=== PATIENT | male | born 1945 | race Caucasian/White ===

== ENCOUNTER 2020-03-19 14:02 | Inpatient (IN) ==
[2020-03-19] MEDS ORDERED: 0.9 % SODIUM CHLORIDE 500 ML IV ONE (14:46)
--- NOTE | 2020-03-19 14:59 | Emergency Department Note ---
HPI General Chief complaint: Weakness Stated complaint: weakness, confusion Time Seen by Provider: 03/19/20 14:14 Source: patient and EMS Mode of arrival: ambulatory Limitations: language barrier (Patient is speech is very garbled and somewhat hard to understand.) and altered mental status History of Present Illness HPI Narrative: Narrative: 74-year-old male patient brought into the emergency department via ambulance after falling at home. Patient is confused and a very poor historian. I am not able to get much history from him. However he does mention falling and striking his head but is unsure if this is today versus yesterday. Patient does have a rash to his left thorax consistent with shingles and is currently being treated for same. He appears to wince in pain several times but is unable to tell me exactly where the pain is. His speech is somewhat garbled but does have a history of CVA in the past. Review of the EMS note indicates that patient developed a very moist cough today. ROS: A review of systems was attempted with the patient. He answered yes/no to the various questions below. Denies systemic illness, fever, sweats, chills. Admits to cough. Denies runny nose or sinus congestion. Denies shortness of breath. Denies retrosternal chest pain or palpitations. Denies abdominal pain, nausea, vomiting, or diarrhea. Denies dysuria, hematuria, urinary frequency, or urinary urgency. Admits to generalized weakness. Related Data Home Medications Medication Instructions Recorded Confirmed nitroglycerin 0.4 mg sublingual 0.4 mg SUBLINGUAL Q5M PRN 07/26/19 03/19/20 tablet Previous Rx's Medication Instructions Recorded tramadol 50 mg tablet 50 mg PO Q8H PRN #90 tab 05/21/19 lisinopril 2.5 mg tablet 2.5 mg PO QDAY #90 tab 08/01/19 magnesium oxide 400 mg PO QDAY #90 tab 08/09/19 colchicine 0.6 mg tablet 0.3 mg PO QDAY #30 tab 08/19/19 potassium chloride 20 mEq 20 meq PO QDAY #90 tab 12/09/19 tablet,extended release apixaban 5 mg tablet 5 mg PO BID #180 tab 01/08/20 ondansetron 4 mg disintegrating 4 mg PO .COMPLEX #30 tab 02/13/20 tablet carvedilol 12.5 mg tablet 6.25 mg PO BID #90 tab 03/10/20 Allergies Allergy/AdvReac Type Severity Reaction Status Date / Time No Known Drug Allergies Allergy Verified 02/24/20 15:37 Review of Systems ROS ROS Narrative: Narrative: All systems ED: reviewed and negative except as stated. [facility] Narrative Patient History Narrative: Narrative: Medical/Surgical/Family History All Active Problems (Updated 03/19/20 @ 20:46 by Tae Thornton PA-C) Pneumonia (Acute) Altered mental status (Acute) HZV (herpes zoster virus) post herpetic neuralgia (Acute) Herpes zoster (Acute) Urinary tract infection (Acute) Flank pain (Acute) Fractured great toe (Acute) Pernicious anemia (Acute) CHF exacerbation (Chronic) History of sinus surgery (Acute ~1979) History of foot surgery (Acute ~1972) Stroke (Acute) SOB (shortness of breath) (Acute) Chest pain (Acute) Cerebrovascular accident (CVA) (Acute) Hypertension (Acute) Gout (Acute) Complete atrioventricular block (Acute) Presence of permanent cardiac pacemaker (Acute) Cerebrovascular accident (Acute) Acute bronchitis (Acute) Elevated serum creatinine (Chronic) Chronic systolic heart failure (Chronic) Fitting and adjustment of automatic implantable cardiac defibrillator (Chronic) Encounter for long-term (current) use of medications (Chronic) History of tympanoplasty (Acute) History of malignant neoplasm (Acute) History of cardiac catheterization (Acute 05/29/14) Status post bunionectomy (Acute) History of arthroscopy of knee (Acute) History of appendectomy (Acute) Premature ventricular contractions (Acute) Osteoarthritis (Acute) Mitral regurgitation (Acute) Hypertension, essential, benign (Acute) Erectile dysfunction (Acute) Coronary artery disease (Acute) Cardiomyopathy (Acute) Bundle branch block (Acute) Acute decompensated heart failure (Acute) Medical History Acute decompensated heart failure (Acute) 05/27/2014 - Dr. Lama [facility] -- Systolic/diastolic heart failure, resolved Bundle branch block (Acute) 05/27/2014 - Dr. Lama [facility] - Left Cardiomyopathy (Acute) 05/27/2014 - Dr. Lama [facility] - Nonischemic Cerebrovascular accident (CVA) (Acute) acute Chest pain (Acute) Chronic systolic heart failure (Chronic) Complete atrioventricular block (Acute) Coronary artery disease (Acute) 05/27/2014 - Dr. Lama [facility] - Nonobstructive Elevated serum creatinine (Chronic) Encounter for long-term (current) use of medications (Chronic) Erectile dysfunction (Acute) Fitting and adjustment of automatic implantable cardiac defibrillator (Chronic) [employer] ICD - [employer] [id number] #[id number] Implanted 10/13/14 Fractured great toe (Acute) Gout (Acute) History of malignant neoplasm (Acute) Hypertension (Acute) Hypertension, essential, benign (Acute) Mitral regurgitation (Acute) (06/24/2014-[facility]) Osteoarthritis (Acute) wrists Premature ventricular contractions (Acute) 05/27/2014 - Dr. Lama [facility] Presence of permanent cardiac pacemaker (Acute) SOB (shortness of breath) (Acute) Stroke (Acute) Surgical History History of appendectomy (Acute) History of arthroscopy of knee (Acute) right History of cardiac catheterization (Acute 05/29/14) right and left-done by Dr. Lama at [facility] History of foot surgery (Acute ~1972) History of sinus surgery (Acute ~1979) polyps, sinus History of tympanoplasty (Acute) R Status post bunionectomy (Acute) L Family History Father , age 87 natural Chronic Kidney Disease Brother Coronary artery disease Mother , 84 natural Diabetes mellitus Unknown Cancer daughter Son , age 13 Cancer Daughter , age 23 MVA (motor vehicle accident) Social History Smoking Status: Former smoker Alcohol Intake Frequency: holiday/special occasion only Exam Narrative Narrative: Narrative: General Limitations: language barrier (Patient is speech is very garbled and somewhat hard to understand.) and altered mental status General appearance: Present other (Well-developed, well-nourished, 74-year-old male patient laying semirecumbent on the emergency room gurney and appears to wince in pain several times. He is in no acute respiratory distress. He does have a moist sounding cough during evaluation. He is afebrile with normal vital signs.) Head Head: Present atraumatic and normocephalic Eye Eye: Present normal appearance, PERRL and EOMI; Absent scleral icterus and co njunctival injection ENT ENT: Present normal oropharynx and mucous membranes dry Neck Neck: Present normal inspection, full ROM and lymphadenopathy; Absent trachea midline and tenderness Chest Chest: Present symmetric chest wall rise and rash (Hyperpigmented rash extending along the thorax. Several small open areas noted. No drainage. No pustules. No streaking. No warmth.) Respiratory Respiratory: Present decreased breath sounds (Significant rhonchi heard to the right base and mid chest.); Absent normal lung sounds bilaterally, respiratory distress, rales/crackles, wheezes, stridor, accessory muscle use and prolonged expiratory phase Cardiovascular Cardiovascular: Present regular rate and normal rhythm; Absent systolic murmur and diastolic murmur Adbominal Abdominal: Present soft; Absent distention, tenderness, guarding, rebound, rigidity, organomegaly and mass Extremities Extremities: Present normal inspection, full ROM and normal capillary refill; Absent pedal edema Expanded Neurological Patient oriented to: Present person; Absent place and time Speech: Present slurred CRANIAL NERVES: EOM function (II, III, IV, ): Normal, facial sensation (V): Normal, facial palsy (VII): Normal, gag reflex (IX): Normal, spinal accessory function (XI): Normal and tongue deviation (XII): Normal Motor strength - LUE: 5/5 Motor strength - RUE: 5/5 Motor strength - LLE: 5/5 Motor strength - RLE: 5/5 SENSORY EXAM UPPER EXTREMITY: Normal: light touch SENSORY EXAM LOWER EXTREMITY: Normal: light touch DTR: 2+: biceps (L), biceps (R), patellar (L) and patellar (R) Coma Scale Eye Opening: Spontaneous Coma Scale Motor Response: Obeys Commands Coma Scale Verbal Response: Oriented Coma Scale Total: 15 Psychiatric Psychiatric: Present normal affect and normal mood Skin Skin: Present warm (WNL), dry, pallor and other (Yellow/brown-colored crusted noted to the right heel and in the back of the right lower leg.) Course Course Course Narrative: The differential diagnosis of altered mental status in the adult patient includes the following conditions. Life-threatening conditions: Hypoxia, hypoglycemia, sepsis, hypertensive encephalopathy, Warnicke's encephalopathy, overdose, L[employer] CONTACT [employer]ER infections (meningitis/encephalitis), L[employer] CONTACT [employer]ER trauma, intracranial hemorrhage (subarachnoid/subdural), epilepsy. Common Conditions: UTI, pneumonia, electrolyte abnormalities, medication adverse effects or interactions, medication withdrawal syndromes, and psychiatric illness. Miscellaneous conditions: Endocrine disease (thyroid conditions), stroke without focal motor deficit, L[employer] CONTA[employer] mass lesions, and dementia. At this time patient is altered nose who he is but does not recall the day the week or even what month he is in. He thinks it is March, which is close with a date being 03/19. He knows he is in the hospital but unsure which one. I am unsure at this time whether or not this is his baseline, dementia, or secondary to that his previous stroke. He has no focal deficits on exam. He does have the shingles rash to the left thorax. He also appears somewhat soiled and unkept. He has a very moist sounding cough with rhonchi heard to the right chest. I am going to get screening laboratory studies, EKG, and a portable chest x-ray. Patient was given normal saline 500 mL as a bolus. Reevaluation(s) Reevaluation #1: Review the patient's diagnostics show the following: CBC within normal limits. Lactic acid 2.2. CMP CO2 20 anion gap 17, glucose 107, total bilirubin 2.8, albumin 3.0, all others normal limits. Troponin 0.06. proBNP 21,113. Procalcitonin 0.33. Portable chest x-ray showing a moderate vague patchy infiltrate developing in the right infrahilar region. After reviewing the data nursing staff came and informed that the patient's blood pressure is dropping with a systolic in the 80s. Patient has been given 500 mL bolus and was provided a second 500 mL normal saline bolus now. With the patient's change in clinical picture I discussed the case with my collaborating physician (Dr. Dr nash). At this time Dr. Marcano did mention repeating the troponin to ensure it was not changing. Concerning the patient's blood pressure it did increase to 102 systolic with simple repositioning. Repeat troponin was ordered as recommended. Time: 17:14 Reevaluation #2: Repeat troponin is decreased to 0.04. After reviewing this additional data I discussed the findings with the patient. He was resting comfortably on the emergency room gurviola. When awoken he was somewhat confused and did not know where he was at. I reminded him that he is at the [facility]. Patient does have no pneumonia in his chest. He has an elevated lactic acid as well as procalcitonin. He had an elevated troponin level that is decreased over time. He does have considerably poor the heart function secondary to CHF and CAD. Patient would benefit from admission to the hospital. With this in mind, I reached out to the hospitalist (Dr. Canchola) to see if he can be admitted here. Time: 19:17 Reevaluation #3: At this time possible says the patient does meet inpatient criteria and has consented to admit him here. He did recommend starting a azithromycin 500 mg IV. This was ordered as requested. At this time patient is going to be admitted under the care of the hospitalist. All further treatment decisions, modalities, and ultimate patient disposition will be carried out by the hospitalist. Vital Signs Vital signs: Vital Signs Temperature 98 F 03/19/20 14:04 Pulse Rate 88 03/19/20 14:04 Respiratory Rate 20 03/19/20 14:04 Blood Pressure 105/67 03/19/20 14:04 Pulse Oximetry (%) 94 03/19/20 14:04 Temperature 98.7 F 03/19/20 18:02 Pulse Rate 80 03/19/20 20:16 Respiratory Rate 22 03/19/20 20:16 Blood Pressure 108/79 03/19/20 20:16 Pulse Oximetry (%) 96 03/19/20 20:16 [facility] MDM Narrative Medical decision making narrative: Narrative: Lab Data Result diagrams: 03/19/20 15:18 03/19/20 15:18 Labs: Lab Results 03/19/20 03/19/20 03/19/20 Range/Units 15:18 15:18 15:18 WBC 10.3 (4.5-11.0) K/mcL RBC 5.20 (4.50-5.90) M/mcL Hgb 14.8 (13.5-16.5) g/dL Hct 45.4 (41.0-55.0) % MCV 87.3 (80.0-100.0) fL MCH 28.5 (26.0-34.0) pg MCHC 32.6 (31.0-36.0) g/dL RDW 20.4 H (11.5-14.5) % Plt Count 184 (140-440) K/mcL MPV 12.8 H (7.4-10.4) fL Neut % (Auto) 85.5 H (38.0-78.0) % Lymph % (Auto) 6.4 L (15.0-49.0) % [place] % (Auto) 7.6 (1.0-12.0) % Eos % (Auto) 0.2 (0.0-7.0) % Baso % (Auto) 0.3 (0.0-2.0) % Lymph # (Auto) 0.66 L (1.50-4.80) K/mcL [place] # (Auto) 0.78 (0.10-0.90) K/mcL Eos # (Auto) 0.02 (0.00-0.70) K/mcL Baso # (Auto) 0.03 (0.00-0.20) K/mcL Absolute Neutrophils 8.78 H (1.80-8.00) K/mcL VBG Lactic Acid 2.2 H (0.5-2.0) mmol/L Sodium 135 (133-145) mmol/L Potassium 4.9 (3.3-5.1) mmol/L Chloride 98 (96-108) mmol/L Carbon Dioxide 20 L (22-30) mmol/L Anion Gap 17.0 H (8.0-16.0) BUN 20 (8-23) mg/dL Creatinine 1.1 (0.7-1.2) mg/dL GFR Calculation 65 Glucose 107 H (70-105) mg/dL Calcium 8.7 (8.6-10.4) mg/dL Total Bilirubin 2.8 H (0.1-1.0) mg/dL AST 19 (<40) U/L ALT 10 (<40) U/L Alkaline Phosphatase 85 (39-117) U/L Troponin T (<0.03) ng/mL NT-Pro-B Natriuret Pep 41251.0 H (<125.0) pg/mL Total Protein 5.9 (5.9-8.4) gm/dL Albumin 3.0 L (3.2-5.2) gm/dL Globulin 2.9 (2.2-3.7) gm/dL Albumin/Globulin Ratio 1.0 (1.0-2.3) Procalcitonin (<0.10) ng/mL 03/19/20 03/19/20 03/19/20 Range/Units 15:18 15:18 17:52 WBC (4.5-11.0) K/mcL RBC (4.50-5.90) M/mcL Hgb (13.5-16.5) g/dL Hct (41.0-55.0) % MCV (80.0-100.0) fL MCH (26.0-34.0) pg MCHC (31.0-36.0) g/dL RDW (11.5-14.5) % Plt Count (140-440) K/mcL MPV (7.4-10.4) fL Neut % (Auto) (38.0-78.0) % Lymph % (Auto) (15.0-49.0) % [place] % (Auto) (1.0-12.0) % Eos % (Auto) (0.0-7.0) % Baso % (Auto) (0.0-2.0) % Lymph # (Auto) (1.50-4.80) K/mcL [place] # (Auto) (0.10-0.90) K/mcL Eos # (Auto) (0.00-0.70) K/mcL Baso # (Auto) (0.00-0.20) K/mcL Absolute Neutrophils (1.80-8.00) K/mcL VBG Lactic Acid (0.5-2.0) mmol/L Sodium (133-145) mmol/L Potassium (3.3-5.1) mmol/L Chloride (96-108) mmol/L Carbon Dioxide (22-30) mmol/L Anion Gap (8.0-16.0) BUN (8-23) mg/dL Creatinine (0.7-1.2) mg/dL GFR Calculation Glucose (70-105) mg/dL Calcium (8.6-10.4) mg/dL Total Bilirubin (0.1-1.0) mg/dL AST (<40) U/L ALT (<40) U/L Alkaline Phosphatase (39-117) U/L Troponin T 0.06 H* 0.04 H* (<0.03) ng/mL NT-Pro-B Natriuret Pep (<125.0) pg/mL Total Protein (5.9-8.4) gm/dL Albumin (3.2-5.2) gm/dL Globulin (2.2-3.7) gm/dL Albumin/Globulin Ratio (1.0-2.3) Procalcitonin 0.33 H (<0.10) ng/mL Radiology Data Radiology results reviewed: Yes I reviewed the patient's radiology results. Radiology results narrative: Ordering Physician: Tae Thornton PA-C Date of Service: 03/19/20 Procedure(s): XR chest 1V portable Accession Number(s): [id number] CLINICAL INFORMATION: Confusion, cough, Rhonchi to Right base. COMPARISON: 02/07/2020 FINDINGS: Moderate cardiomegaly is unchanged. Implantable cardioverter defibrillator remains in stable satisfactory position. Mediastinum and pulmonary vasculature are unremarkable. Moderate patchy infiltrate has developed in the right infrahilar region. No effusion IMPRESSION: Moderate vague patchy infiltrate developing in the right infrahilar region Stable moderate cardiomegaly Interpreted and Authenticated by: Rios Gotti 03/19/20 EKG Data EKG #1: EKG attestation: Yes I reviewed and interpreted this EKG. EKG results narrative: Twelve-lead EKG obtained showing atrial fibrillation with a paced rhythm at a rate of 108 bpm. Left bundle branch block noted. A single PVC was noted. Discharge Plan Patient/Caregiver Discharge Instructions Pt seen by MEDICAID ELIGIBILITY SPECIALIST/PA only: Yes Clinical Impression: Pneumonia Qualifiers: Pneumonia type: due to unspecified organism Laterality: right Lung location: lower lobe of lung Qualified Code(s): J18.9 - Pneumonia, unspecified organism Altered mental status Qualifiers: Altered mental status type: unspecified Qualified Code(s): R41.82 - Altered mental status, unspecified Patient Disposition: Xfer As Inpt ([facility]) Condition: Fair Follow up with: Pop Peña MD [Primary Care Provider] - Prescriptions: No Action nitroglycerin 0.4 mg tablet, sublingual 0.4 mg SUBLINGUAL Q5M PRN (Reason: Chest Pain) RF: 0 lisinopril 2.5 mg tablet 2.5 mg PO QDAY Qty: 90 RF: 4 colchicine 0.6 mg tablet 0.3 mg PO QDAY Qty: 30 RF: 12 tramadol 50 mg tablet 50 mg PO Q8H PRN (Reason: pain) Qty: 90 RF: 2 magnesium oxide 400 mg magnesium tablet 400 mg PO QDAY Qty: 90 RF: 1 potassium chloride 20 mEq tablet extended release 20 meq PO QDAY Qty: 90 RF: 0 Eliquis 5 mg tablet 5 mg PO BID Qty: 180 RF: 3 ondansetron 4 mg tablet,disintegrating 4 mg PO .COMPLEX Qty: 30 RF: 1 carvedilol 12.5 mg tablet 6.25 mg PO BID Qty: 90 RF: 6
--- NOTE | 2020-03-19 15:58 | XRay Report ---
CLINICAL INFORMATION: Confusion, cough, Rhonchi to Right base. COMPARISON: 02/07/2020 FINDINGS: Moderate cardiomegaly is unchanged. Implantable cardioverter defibrillator remains in stable satisfactory position. Mediastinum and pulmonary vasculature are unremarkable. Moderate patchy infiltrate has developed in the right infrahilar region. No effusion IMPRESSION: Moderate vague patchy infiltrate developing in the right infrahilar region Stable moderate cardiomegaly Interpreted and Authenticated by: Rios Gotti 03/19/20
[2020-03-19 16:00] LABS: Basophils # (Auto) 0.03 K/mcL (0.00-0.20); Basophils % (Auto) 0.3 % (0.0-2.0); Eosinophils # (Auto) 0.02 K/mcL (0.00-0.70); Eosinophils % (Auto) 0.2 % (0.0-7.0); Hematocrit 45.4 % (41.0-55.0); Hemoglobin 14.8 g/dL (13.5-16.5); Lymphocytes # (Auto) 0.66 K/mcL (1.50-4.80); Lymphocytes % (Auto) 6.4 % (15.0-49.0); Mean Cell Volume 87.3 fL (80.0-100.0); Mean Corpuscular HGB Conc 32.6 g/dL (31.0-36.0); Mean Platelet Volume 12.8 fL (7.4-10.4); Monocytes # (Auto) 0.78 K/mcL (0.10-0.90); Monocytes % (Auto) 7.6 % (1.0-12.0); Neutrophils % (Auto) 85.5 % (38.0-78.0); Platelet Count 184 K/mcL (140-440); Red Cell Distribution Width 20.4 % (11.5-14.5); WBC 10.3 K/mcL (4.5-11.0)
[2020-03-19] MEDS ORDERED: cefTRIAXone 2 GM in DEXTROSE 5% IN WATER 50 ML IV ONE (16:06)
[2020-03-19 16:35] LABS: ALT/SGPT 10 U/L (<40); AST/SGOT 19 U/L (<40); Alkaline Phosphatase 85 U/L (39-117); Bilirubin,Total 2.8 mg/dL (0.1-1.0); Blood Urea Nitrogen 20 mg/dL (8-23); Calcium 8.7 mg/dL (8.6-10.4); Carbon Dioxide 20 mmol/L (22-30); Chloride 98 mmol/L (96-108); Globulin 2.9 gm/dL (2.2-3.7); Glomerular Filtration Rate 65; Glucose 107 mg/dL (70-105)
[2020-03-19] MEDS ORDERED: 0.9 % SODIUM CHLORIDE 1,000 ML IV ONE (17:18)
[2020-03-19] MEDS ORDERED: AZITHROMYCIN 500 MG in DEXTROSE 5% IN WATER 250 ML IV ONE (20:35)
--- NOTE | 2020-03-19 21:00 | Internal Med History&Physical ---
HPI History of Present Illness Patient information: Note initiated : 03/19/20 at 8:46 pm Service Date, if different from initiated Date: [] Patient: Luke Scott a 74 y/o M admitted on for weakness, confusion. Chief Complaint: [] History of present illness: Mr. Scott is a 74 year old M Resents to the ED with weakness falling at home. Patient is a poor historian but according to him and notes it sounds like his had a cough for couple days he says is nonproductive. Denies shortness of breath. Denies fevers or chills. In the ED work-up included chest x-ray showed right-sided infiltrate. He did become hypotensive briefly that responded IV fluids. Lactate was mildly elevated. Procalcitonin mildly elevated. Seems to have some confusion in the ED. Does have a history of stroke but says he fully recovered. Does have a history of nonischemic cardiomyopathy. Concern for developing sepsis and thus patient requested for admission. He lives with his daughter. Review of Systems: Pertinent positive as above. Denies headache/fever/chills/nausea/vomiting/chest or abdominal pain/diarrhea. Remaining 10 point review of system reviewed negative PFSH PFSH All Active Problems (Updated 03/19/20 @ 20:46 by Tae Thornton PA-C) Pneumonia (Acute) Altered mental status (Acute) HZV (herpes zoster virus) post herpetic neuralgia (Acute) Herpes zoster (Acute) Urinary tract infection (Acute) Flank pain (Acute) Fractured great toe (Acute) Pernicious anemia (Acute) CHF exacerbation (Chronic) History of sinus surgery (Acute ~1979) History of foot surgery (Acute ~1972) Stroke (Acute) SOB (shortness of breath) (Acute) Chest pain (Acute) Cerebrovascular accident (CVA) (Acute) Hypertension (Acute) Gout (Acute) Complete atrioventricular block (Acute) Presence of permanent cardiac pacemaker (Acute) Cerebrovascular accident (Acute) Acute bronchitis (Acute) Elevated serum creatinine (Chronic) Chronic systolic heart failure (Chronic) Fitting and adjustment of automatic implantable cardiac defibrillator (Chronic) Encounter for long-term (current) use of medications (Chronic) History of tympanoplasty (Acute) History of malignant neoplasm (Acute) History of cardiac catheterization (Acute 05/29/14) Status post bunionectomy (Acute) History of arthroscopy of knee (Acute) History of appendectomy (Acute) Premature ventricular contractions (Acute) Osteoarthritis (Acute) Mitral regurgitation (Acute) Hypertension, essential, benign (Acute) Erectile dysfunction (Acute) Coronary artery disease (Acute) Cardiomyopathy (Acute) Bundle branch block (Acute) Acute decompensated heart failure (Acute) Medical History Acute decompensated heart failure (Acute) 05/27/2014 - Dr. Lama [facility] -- Systolic/diastolic heart failure, resolved Bundle branch block (Acute) 05/27/2014 - Dr. Lama [facility] - Left Cardiomyopathy (Acute) 05/27/2014 - Dr. Lama [facility] - Nonischemic Cerebrovascular accident (CVA) (Acute) acute Chest pain (Acute) Chronic systolic heart failure (Chronic) Complete atrioventricular block (Acute) Coronary artery disease (Acute) 05/27/2014 - Dr. Lama [facility] - Nonobstructive Elevated serum creatinine (Chronic) Encounter for long-term (current) use of medications (Chronic) Erectile dysfunction (Acute) Fitting and adjustment of automatic implantable cardiac defibrillator (Chronic) [employer] ICD - [employer] [id number] #[id number] Implanted 10/13/14 Fractured great toe (Acute) Gout (Acute) History of malignant neoplasm (Acute) Hypertension (Acute) Hypertension, essential, benign (Acute) Mitral regurgitation (Acute) (06/24/2014-[facility]) Osteoarthritis (Acute) wrists Premature ventricular contractions (Acute) 05/27/2014 - Dr. Lama [facility] Presence of permanent cardiac pacemaker (Acute) SOB (shortness of breath) (Acute) Stroke (Acute) Surgical History History of appendectomy (Acute) History of arthroscopy of knee (Acute) right History of cardiac catheterization (Acute 05/29/14) right and left-done by Dr. 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 smoking status: Former smoker alcohol intake frequency: holiday/special occasion only MEDS/ALLERGIES Home Medications and Allergies Home Medications Medication Instructions Recorded Confirmed Type tramadol 50 mg tablet 50 mg PO Q8H PRN #90 tab 05/21/19 03/19/20 Rx nitroglycerin 0.4 mg sublingual 0.4 mg SUBLINGUAL Q5M PRN 07/26/19 03/19/20 History tablet lisinopril 2.5 mg tablet 2.5 mg PO QDAY #90 tab 08/01/19 03/19/20 Rx magnesium oxide 400 mg PO QDAY #90 tab 08/09/19 03/19/20 Rx colchicine 0.6 mg tablet 0.3 mg PO QDAY #30 tab 08/19/19 03/19/20 Rx potassium chloride 20 mEq 20 meq PO QDAY #90 tab 12/09/19 03/19/20 Rx tablet,extended release apixaban 5 mg tablet 5 mg PO BID #180 tab 01/08/20 03/19/20 Rx ondansetron 4 mg disintegrating 4 mg PO .COMPLEX #30 tab 02/13/20 03/19/20 Rx tablet carvedilol 12.5 mg tablet 6.25 mg PO BID #90 tab 03/10/20 03/19/20 Rx Allergies Allergy/AdvReac Type Severity Reaction Status Date / Time No Known Drug Allergies Allergy Verified 02/24/20 15:37 EXAM Constitutional Vitals: Temp Pulse Resp BP Pulse Ox 98.7 F 80 22 108/79 96 03/19/20 18:02 03/19/20 20:16 03/19/20 20:16 03/19/20 20:16 03/19/20 20:16 Exam: General: Alert, Awake, No acute Distress Eyes/N/T: EOMI, PERRL, dry MM Head/Neck: neck supple, normocephalic atraumatic CV: Paced rhythm, No murmurs, normal s1/s2 Pulm: Right side rhonchi/rales, left relatively clear, nonlabored Abd: soft, nontender, +BS x4 Ext: no clubbing/cyanosis/edema Neuro: confusion to year/President/birthdate day, moves all extremities, symme trical strength b/l upper/lower, sensations intact b/l upper/lower Skin: warm/dry DATA Data Completed and Pending Labs: Labs from last 24 hours 03/19/20 03/19/20 03/19/20 17:52 15:18 15:18 WBC RBC Hgb Hct MCV MCH MCHC RDW Plt Count MPV Neut % (Auto) Lymph % (Auto) Reynolds % (Auto) Eos % (Auto) Baso % (Auto) Lymph # (Auto) Reynolds # (Auto) Eos # (Auto) Baso # (Auto) Absolute Neutrophils VBG Lactic Acid Sodium Potassium Chloride Carbon Dioxide Anion Gap BUN Creatinine GFR Calculation Glucose Calcium Total Bilirubin AST ALT Alkaline Phosphatase Troponin T 0.04 H* 0.06 H* NT-Pro-B Natriuret Pep Total Protein Albumin Globulin Albumin/Globulin Ratio Procalcitonin 0.33 H 03/19/20 03/19/20 03/19/20 15:18 15:18 15:18 WBC 10.3 RBC 5.20 Hgb 14.8 Hct 45.4 MCV 87.3 MCH 28.5 MCHC 32.6 RDW 20.4 H Plt Count 184 MPV 12.8 H Neut % (Auto) 85.5 H Lymph % (Auto) 6.4 L Reynolds % (Auto) 7.6 Eos % (Auto) 0.2 Baso % (Auto) 0.3 Lymph # (Auto) 0.66 L Reynolds # (Auto) 0.78 Eos # (Auto) 0.02 Baso # (Auto) 0.03 Absolute Neutrophils 8.78 H VBG Lactic Acid 2.2 H Sodium 135 Potassium 4.9 Chloride 98 Carbon Dioxide 20 L Anion Gap 17.0 H BUN 20 Creatinine 1.1 GFR Calculation 65 Glucose 107 H Calcium 8.7 Total Bilirubin 2.8 H AST 19 ALT 10 Alkaline Phosphatase 85 Troponin T NT-Pro-B Natriuret Pep 52490.0 H Total Protein 5.9 Albumin 3.0 L Globulin 2.9 Albumin/Globulin Ratio 1.0 Procalcitonin A/P Narrative A/P Narrative: A: *CAP: PSI=at least 95 -Elevated PCT *Sepsis: *Encephalopathy: 2/2 above *Hypotension: Resolved with IV fluids, 2/2 above plus BP meds *h/o nonischemic CMP (EF 25-30) w/ACID, Mod Pulm HTN: follows with [place] [facility] -on BB/ACEI/lasix *Afib w/pacer: on BB/Eliquis *h/o CVA: No residual deficits -pt stopped taking statin on own per pcp notes 07/26/2019, was on 40mg lipitor *CKD II: *HTN: *Generalized weakness/deconditioning: *Recent shingles: P: -Rocephin/azithromycin -Pending BC/SC -Continue home cardiac medications, but hold BP meds today and may lower dose based on BP -IS/Acapella/RT/prn nebs -monitor i/os', weights -clarify home lasix, on cardiology notes but not on home meds -PT/OT -ppx: Home Eliquis Time Spent With Patient Time: Total time spent is greater than 50% in coordination of care (as documented) at patient's floor/unit and/or counseling patient:
[2020-03-19] MEDS ORDERED: SENNOSIDES 1 TABLET PO PRN (21:52)
[2020-03-19] MEDS ORDERED: ONDANSETRON (PP) 4 MG TABLET PO SCH (21:52)
[2020-03-19] MEDS ORDERED: NITROGLYCERIN (PP) 0.4 MG TAB.SUBL (#25) SL PRN (21:52)
[2020-03-19] MEDS ORDERED: POTASSIUM CHLORIDE 20 MEQ TABLET PO PRN ×2 (21:52)
[2020-03-19] MEDS ORDERED: METOPROLOL TARTRATE 5 MG/5 ML VIAL IV PRN (21:52)
[2020-03-19] MEDS ORDERED: cefTRIAXone 2 GM in DEXTROSE 5% IN WATER 50 ML IV SCH (21:52)
[2020-03-19] MEDS ORDERED: ACETAMINOPHEN 325 MG TABLET PO PRN (21:52)
[2020-03-19] MEDS ORDERED: POTASSIUM CHLORIDE 40 MEQ in DEXTROSE 5% IN WATER 500 ML IV PRN (21:52)
[2020-03-19] MEDS ORDERED: AZITHROMYCIN 500 MG in DEXTROSE 5% IN WATER 250 ML IV SCH (21:52)
[2020-03-19] MEDS ORDERED: POLYETHYLENE GLYCOL 3350 17 GM PACKET PO PRN (21:52)
[2020-03-19] MEDS ORDERED: ONDANSETRON 4 MG/2 ML VIAL IV PRN (21:52)
[2020-03-19] MEDS ORDERED: MAGNESIUM SULFATE 2 GM/50 ML BAG IV PRN (21:52)
[2020-03-19] MEDS ORDERED: CARVEDILOL 12.5 MG TABLET PO SCH (21:52)
[2020-03-19] MEDS ORDERED: traMADol 50 MG TABLET PO PRN ×2 (21:52→22:15)
[2020-03-19] MEDS ORDERED: IPRATROPIUM/ALBUTEROL 3 ML AMPUL.NEB NEB PRN (21:52)
[2020-03-19] MEDS ORDERED: ONDANSETRON 4 MG ODT TABLET SL PRN (22:15)
[2020-03-19] MEDS ORDERED: NITROGLYCERIN 0.4 MG TAB.SUBL SL PRN (22:15)
[2020-03-20] MEDS: 0.9 % SODIUM CHLORIDE 10 ML SYRINGE IV SCH ×4 (00:16→21:23)
[2020-03-20] MEDS: APIXABAN 5 MG TABLET PO SCH ×3 (00:16→21:23)
[2020-03-20 06:16] LABS: Basophils # (Auto) 0.02 K/mcL (0.00-0.20); Basophils % (Auto) 0.3 % (0.0-2.0); Eosinophils # (Auto) 0.03 K/mcL (0.00-0.70); Eosinophils % (Auto) 0.5 % (0.0-7.0); Hematocrit 39.6 % (41.0-55.0); Hemoglobin 12.7 g/dL (13.5-16.5); Lymphocytes # (Auto) 0.94 K/mcL (1.50-4.80); Lymphocytes % (Auto) 15.9 % (15.0-49.0); Mean Corpuscular HGB Conc 32.1 g/dL (31.0-36.0); Mean Platelet Volume 12.9 fL (7.4-10.4); Monocytes # (Auto) 0.49 K/mcL (0.10-0.90); Monocytes % (Auto) 8.3 % (1.0-12.0); Platelet Count 157 K/mcL (140-440); RBC 4.45 M/mcL (4.50-5.90); Red Cell Distribution Width 20.2 % (11.5-14.5); WBC 5.9 K/mcL (4.5-11.0)
[2020-03-20 06:48] LABS: ALT/SGPT 10 U/L (<40); AST/SGOT 14 U/L (<40); Albumin 2.3 gm/dL (3.2-5.2); Albumin/Globulin Ratio 0.6 (1.0-2.3); Alkaline Phosphatase 75 U/L (39-117); Bilirubin,Direct 0.9 mg/dL (<0.3); Bilirubin,Total 1.6 mg/dL (0.1-1.0); Blood Urea Nitrogen 20 mg/dL (8-23); Calcium 8.5 mg/dL (8.6-10.4); Carbon Dioxide 21 mmol/L (22-30); Chloride 105 mmol/L (96-108); Globulin 3.6 gm/dL (2.2-3.7); Glomerular Filtration Rate 73; Glucose 108 mg/dL (70-105); Lactate Dehydrogenase 150 U/L (135-225); Phosphorous 2.9 mg/dL (2.5-4.5); Triglycerides 98 mg/dL (<150); Uric Acid 8.3 mg/dL (2.5-8.0)
[2020-03-20] MEDS ORDERED: ATORVASTATIN 40 MG TABLET PO ONE (07:30)
--- NOTE | 2020-03-20 07:31 | Internal Med Progress Note ---
SUBJECTIVE Subjective Patient information: Note initiated : 03/20/20 at 7:27 am Service Date, if different from initiated Date: [] Patient: Luke Scott a 74 y/o M admitted on 03/19/20 for weakness, confusion. Chief Complaint: [] Interval history: History of present illness: Mr. Scott is a 74 year old M Resents to the ED with weakness falling at home. Patient is a poor historian but according to him and notes it sounds like his had a cough for couple days he says is nonproductive. Denies shortness of breath. Denies fevers or chills. In the ED work-up included chest x-ray showed right-sided infiltrate. He did become hypotensive briefly that responded IV fluids. Lactate was mildly elevated. Procalcitonin mildly elevated. Seems to have some confusion in the ED. Does have a history of stroke but says he fully recovered. Does have a history of nonischemic cardiomyopathy. Concern for developing sepsis and thus patient requested for admission. He lives with his daughter. 03/20 No issues overnight. Possible urinary tract infection. Mentation improving today. CT brain no acute changes. Mild cough. "Some shortness of breath". Review of Systems: denies headache/fever/chills/nausea/vomiting/chest or abdominal pain/cough/dyspnea/diarrhea. Otherwise see above. Constitutional Vitals: Vital Signs Temp Pulse Resp BP Pulse Ox 97.7 F 81 16 111/84 95 03/20/20 04:00 03/20/20 04:00 03/20/20 04:00 03/20/20 04:00 03/20/20 04:00 Period Temp Pulse Resp BP Sys/Barker Pulse Ox Last 24 Hr 97.6 F-98.7 F 53-96 10- 74-117/54-94 94-100 Intake and Output 03/19/20 03/20/20 03/20/20 21:59 05:59 13:59 Intake Total 1600 Output Total 1 Balance 1600 -1 Weight 81.647 kg 78.018 kg Intake & Output: Intake & Output 03/19/20 03/20/20 03/20/20 21:59 05:59 13:59 Intake Total 1600 Output Total 1 Balance 1600 -1 Weight 81.647 kg 78.018 kg Intake: IV 1600 Sodium Chloride 0.9% 1,000 ml @ 800 Wide Open IV BOLUS ONE Rx#: [id number] Sodium Chloride 0.9% 500 ml @ 500 Wide Open IV BOLUS ONE Rx#: [id number] Zithromax 500 mg In Dextrose 5% 250 in Water 250 ml @ 250 mls/hr IV ONCE ONE Rx#:[id number] Rocephin 2 gm In Dextrose 5% in 50 Water 50 ml @ 100 mls/hr IV ONCE ONE Rx#:[id number] Output: # of times incontinent of urine 1 Other: Stool Size Small Stool Color Brown Stool Consistency Dry and Hard # of times incontinent of 1 Bowels Exam: General: Alert, Awake, No acute Distress Eyes/N/T: EOMI, Head/Neck: neck supple, CV: Paced rhythm, No murmurs, Pulm: Right side rhonchi/rales, left relatively clear, Abd: soft, nontender, +BS x4. herpes zoster left side with crusting Ext: no clubbing/cyanosis/edema Neuro: A&Ox4(not to President, [facility]), moves all extremities, symmetrical strength b/l upper/lower, sensations intact b/l upper/lower Skin: warm/dry OBJ DATA Labs CBC & Chem 7: 03/20/20 05:17 03/20/20 05:17 Labs: Abnormal Lab Results 03/20/20 03/20/20 03/19/20 05:17 05:17 17:52 RBC 4.45 L Hgb 12.7 L Hct 39.6 L RDW 20.2 H MPV 12.9 H Neut % (Auto) Lymph % (Auto) Lymph # (Auto) 0.94 L Absolute Neutrophils VBG Lactic Acid Carbon Dioxide 21 L Anion Gap Glucose 108 H Uric Acid 8.3 H Calcium 8.5 L Total Bilirubin 1.6 H Direct Bilirubin 0.9 H Troponin T 0.04 H* NT-Pro-B Natriuret Pep Albumin 2.3 L Albumin/Globulin Ratio 0.6 L Procalcitonin 03/19/20 03/19/20 03/19/20 15:18 15:18 15:18 RBC Hgb Hct RDW MPV Neut % (Auto) Lymph % (Auto) Lymph # (Auto) Absolute Neutrophils VBG Lactic Acid 2.2 H Carbon Dioxide Anion Gap Glucose Uric Acid Calcium Total Bilirubin Direct Bilirubin Troponin T 0.06 H* NT-Pro-B Natriuret Pep Albumin Albumin/Globulin Ratio Procalcitonin 0.33 H 03/19/20 03/19/20 15:18 15:18 RBC Hgb Hct RDW 20.4 H MPV 12.8 H Neut % (Auto) 85.5 H Lymph % (Auto) 6.4 L Lymph # (Auto) 0.66 L Absolute Neutrophils 8.78 H VBG Lactic Acid Carbon Dioxide 20 L Anion Gap 17.0 H Glucose 107 H Uric Acid Calcium Total Bilirubin 2.8 H Direct Bilirubin Troponin T NT-Pro-B Natriuret Pep 17799.0 H Albumin 3.0 L Albumin/Globulin Ratio Procalcitonin Meds: Medications Acetaminophen (Tylenol) 650 mg PO Q6HP PRN PRN Reason: PAIN/FEVER > 101 Albuterol/Ipratropium (Duoneb) 3 ml NEB Q4HP PRN PRN Reason: Shortness Of Breath Apixaban (Eliquis) 5 mg PO BID [facility] Last Admin: 03/20/20 00:16 Dose: 5 mg Documented by: Carvedilol (Coreg) 3.125 mg PO BIDCC [facility] Colchicine (Colcrys) 0.3 mg PO DAILY [facility] Docusate Sodium (Colace) 100 mg PO BID [facility] Potassium Chloride 40 meq/ (Dextrose) 520 mls @ 130 mls/hr IV UD PRN PRN Reason: Potassium < 3 Magnesium Sulfate (Magnesium Sulfate) 2 gm in 50 mls @ 50 mls/hr IV UD PRN PRN Reason: Magnesium </= 1.6 Ceftriaxone Sodium 2 gm/ (Dextrose) 50 mls @ 100 mls/hr IV DAILY [facility]; Protocol Azithromycin 500 mg/ Dextrose 250 mls @ 250 mls/hr IV DAILY [facility]; Protocol Stop: 03/21/20 09:59 Magnesium Oxide (Magnesium Oxide) 400 mg PO DAILY [facility] Metoprolol Tartrate (Lopressor) 5 mg IV Q2HP PRN PRN Reason: Tachyarrhythmias HR>110 Nitroglycerin (Nitrostat) 0.4 mg SL Q5M PRN PRN Reason: Chest Pain Ondansetron HCl (Zofran) 4 mg IV Q4HP PRN PRN Reason: Nausea And Vomiting Ondansetron HCl (Zofran Odt) 4 mg SL Q6-8HP PRN PRN Reason: Nausea And Vomiting Polyethylene Glycol (Miralax) 17 gm PO DAILYP PRN PRN Reason: Constipation Potassium Chloride (Kdur) 20 meq PO QAMCC [facility] Potassium Chloride (Kdur) 40 meq PO UD PRN PRN Reason: Potssium is 3-3.5 Potassium Chloride (Kdur) 40 meq PO UD PRN PRN Reason: Potassium < 3 Senna (Senokot) 2 tab PO DAILYP PRN PRN Reason: Constipation Sodium Chloride (Saline Flush) 10 ml IV Q8 [facility] Last Admin: 03/20/20 04:22 Dose: 10 ml Documented by: Tramadol HCl (Ultram) 50 mg PO Q8HP PRN; Protocol PRN Reason: pain A/P Narrative A/P Narrative: A: *CAP: PSI=at least 95 -Elevated PCT -on room air *Sepsis: improving *?UTI: *Encephalopathy: 2/2 above. Improving -CT brain no acute *Hypotension: Resolved with IV fluids, 2/2 above plus BP meds *h/o nonischemic CMP (EF 25-30) w/ACID, Mod Pulm HTN: follows with [place] [facility] -on BB/ACEI/lasix *Afib w/pacer: on BB/Eliquis *h/o CVA: No residual deficits -pt stopped taking statin on own per pcp notes 07/26/2019, was on 40mg lipitor *CKD II: *HTN: *Generalized weakness/deconditioning: *Recent Herpes Zoster: crusted over lesions left back P: -Rocephin/azithromycin, mrsa neg -Pending BC/SC/UC -lowered coreg for now give initial low BP, low-dose ACEI held -IS/Acapella/RT/prn nebs -monitor i/os', weights -home lasix is prn only -restart statin -PT/OT -ppx: Home Eliquis Time Spent With Patient Time: Total time spent is greater than 50% in coordination of care (as documented) at patient's floor/unit and/or counseling patient: QUALITY VTE Deep Vein Thrombosis/Pulmonary Embolism Present on Admission: No
[2020-03-20] MEDS ORDERED: CARVEDILOL 3.125 MG TABLET PO SCH (08:00)
[2020-03-20] MEDS ORDERED: POTASSIUM CHLORIDE 20 MEQ TABLET PO SCH (08:00)
[2020-03-20] MEDS ORDERED: DOCUSATE SODIUM 100 MG CAPSULE PO SCH (09:00)
[2020-03-20] MEDS ORDERED: MAGNESIUM OXIDE 400 MG TABLET PO SCH (09:00)
[2020-03-20] MEDS ORDERED: cefTRIAXone 2 GM in DEXTROSE 5% IN WATER 50 ML IV SCH (09:00)
[2020-03-20 09:34] LABS: Appearance,Urine CLEAR (Clear); Bilirubin,Urine Negative (Negative); Color,Urine AMBER; Culture Indicated,Urine yes; Glucose,Urine (UA) Negative (Negative); Ketones,Urine Negative (Negative); Leukocyte Esterase,Urine 25 /ug (Negative); Mucus,Urine MOD /hpf; Nitrate,Urine Negative (Negative); Protein,Urine 30 mg/dL (Negative); Uric Acid Crystals,Urine FEW /hpf; Urine Blood Negative (Negative); Urine Hyaline Cast 16 /lph (0-2); Urine RBC 0 /hpf (0-3); Urine Squamous Epithelial Cell 1 /hpf (0-4); Urine WBC 26 /hpf (0-4)
--- NOTE | 2020-03-20 10:45 | Cat Scan Report ---
CLINICAL INFORMATION: Trauma COMPARISON: 06/08/2017 TECHNIQUE: 2.5 mm helical slices were obtained in the skull base to vertex. Following reconstruction, axial reformatted images were reviewed at bone and parenchymal windows. The exam was performed using radiation dose optimization techniques including, but not limited to, automated exposure control, adjustment of the mA and/or kV according to patient size and use of iterative reconstruction technique. FINDINGS: The ventricles, sulci, fissures, and cisterns are minimally enlarged compatible with mild age-related atrophy - no change. No extra-axial fluid collections are identified. Mild patchy chronic ischemic changes in the cerebral white matter expected for age.. There is no evidence of hemorrhage, mass effect, or edema. Bone windows show no osseous abnormality. IMPRESSION: Mild atrophy and patchy chronic ischemic changes in the deep cerebral white matter expected for age. No acute findings Moderate cerumen is noted within both external auditory canals consider removal6 Interpreted and Authenticated by: Rios Gotti 03/20/20
[2020-03-20] MEDS ORDERED: LABETALOL 5 MG/ML ML IV PRN ×2 (10:57→17:24)
[2020-03-20] MEDS: COLCHICINE 0.6 MG CAPSULE PO SCH ×2 (11:03→12:13)
[2020-03-20] MEDS ORDERED: COLCHICINE 0.3 MG PO SCH (12:00)
[2020-03-20] MEDS ORDERED: AZITHROMYCIN 500 MG in DEXTROSE 5% IN WATER 250 ML IV SCH (13:00)
[2020-03-20] MEDS: ACYCLOVIR 400 MG TABLET PO SCH ×3 (13:57→21:22)
[2020-03-20] MEDS ORDERED: ALBUMIN HUMAN 12.5 GM/50 ML BAG IV ONE ×2 (15:24→21:30)
[2020-03-20] MEDS ORDERED: 0.9 % SODIUM CHLORIDE 250 ML IV ONE (16:15)
[2020-03-20] MEDS ORDERED: IPRATROPIUM/ALBUTEROL 3 ML AMPUL.NEB NEB PRN (17:24)
[2020-03-20] MEDS ORDERED: MAGNESIUM SULFATE 2 GM/50 ML BAG IV PRN (17:24)
[2020-03-20] MEDS ORDERED: NITROGLYCERIN 0.4 MG TAB.SUBL SL PRN (17:24)
[2020-03-20] MEDS ORDERED: ACETAMINOPHEN 325 MG TABLET PO PRN (17:24)
[2020-03-20] MEDS ORDERED: POTASSIUM CHLORIDE 40 MEQ in DEXTROSE 5% IN WATER 500 ML IV PRN (17:24)
[2020-03-20] MEDS ORDERED: POLYETHYLENE GLYCOL 3350 17 GM PACKET PO PRN (17:24)
[2020-03-20] MEDS ORDERED: ONDANSETRON 4 MG/2 ML VIAL IV PRN (17:24)
[2020-03-20] MEDS ORDERED: ONDANSETRON 4 MG ODT TABLET SL PRN (17:24)
[2020-03-20] MEDS ORDERED: traMADol 50 MG TABLET PO PRN (17:24)
[2020-03-20] MEDS ORDERED: SENNOSIDES 1 TABLET PO PRN (17:24)
[2020-03-20] MEDS ORDERED: POTASSIUM CHLORIDE 20 MEQ TABLET PO PRN ×2 (17:24)
[2020-03-20] MEDS ORDERED: COLCHICINE 0.6 MG CAPSULE PO SCH (19:49)
[2020-03-20] MEDS ORDERED: ATORVASTATIN 40 MG TABLET PO SCH (21:00)
[2020-03-20] MEDS: ATORVASTATIN 40 MG TABLET PO SCH (21:22)
[2020-03-20] MEDS: DOCUSATE SODIUM 100 MG CAPSULE PO SCH (21:22)
[2020-03-21] MEDS: 0.9 % SODIUM CHLORIDE 10 ML SYRINGE IV SCH ×3 (05:38→21:16)
[2020-03-21 07:13] LABS: ALT/SGPT 12 U/L (<40); AST/SGOT 27 U/L (<40); Albumin 2.9 gm/dL (3.2-5.2); Alkaline Phosphatase 66 U/L (39-117); Bilirubin,Direct 0.5 mg/dL (<0.3); Bilirubin,Total 1.2 mg/dL (0.1-1.0); Blood Urea Nitrogen 22 mg/dL (8-23); Calcium 8.5 mg/dL (8.6-10.4); Carbon Dioxide 20 mmol/L (22-30); Chloride 101 mmol/L (96-108); Globulin 2.9 gm/dL (2.2-3.7); Glomerular Filtration Rate 88; Glucose 89 mg/dL (70-105); Lactate Dehydrogenase 237 U/L (135-225); Phosphorous 2.9 mg/dL (2.5-4.5); Triglycerides 96 mg/dL (<150); Uric Acid 7.5 mg/dL (2.5-8.0)
--- NOTE | 2020-03-21 07:25 | Internal Med Progress Note ---
SUBJECTIVE Subjective Patient information: Note initiated : 03/21/20 at 7:22 am Service Date, if different from initiated Date: [] Patient: Luke Scott a 74 y/o M admitted on 03/19/20 for weakness, confusion. Chief Complaint: [] Interval history: History of present illness: Mr. Scott is a 74 year old M Resents to the ED with weakness falling at home. Patient is a poor historian but according to him and notes it sounds like his had a cough for couple days he says is nonproductive. Denies shortness of breath. Denies fevers or chills. In the ED work-up included chest x-ray showed right-sided infiltrate. He did become hypotensive briefly that responded IV fluids. Lactate was mildly elevated. Procalcitonin mildly elevated. Seems to have some confusion in the ED. Does have a history of stroke but says he fully recovered. Does have a history of nonischemic cardiomyopathy. Concern for developing sepsis and thus patient requested for admission. He lives with his daughter. 03/20 No issues overnight. Possible urinary tract infection. Mentation improving today. CT brain no acute changes. Mild cough. "Some shortness of breath". 03/21 Feeling better. No new complaints. Cough and shortness of breath improving. Blood pressure better. We will likely give him metoprolol today instead of carvedilol given the low blood pressure she has had. Review of Systems: denies headache/fever/chills/nausea/vomiting/chest or abdominal pain/diarrhea. Otherwise see above. Constitutional Vitals: Vital Signs Temp Pulse Resp BP Pulse Ox 96.8 F L 80 11 L 117/86 98 03/21/20 04:00 03/21/20 07:01 03/21/20 07:01 03/21/20 07:01 03/21/20 07:01 Period Temp Pulse Resp BP Sys/Barker Pulse Ox Last 24 Hr 96.8 F-97.5 F 79-88 10- 78-135/52-92 92-98 Intake and Output 03/20/20 03/21/20 03/21/20 21:59 05:59 13:59 Intake Total 740 250 Output Total 150 Balance 740 100 Weight 79.107 kg Intake & Output: Intake & Output 03/20/20 03/21/20 03/21/20 21:59 05:59 13:59 Intake Total 740 250 Output Total 150 Balance 740 100 Weight 79.107 kg Intake: IV 300 50 Zithromax 500 mg In Dextrose 5% 250 in Water 250 ml @ 250 mls/hr IV DAILY [facility] Rx#:[id number] Oral 440 200 Output: Void Amount 150 Exam: General: Alert, Awake, No acute Distress Eyes/N/T: EOMI, Head/Neck: neck supple, CV: Paced rhythm, No murmurs, Pulm: mild b/l rhonchi, no rales Abd: soft, nontender, +BS x4. herpes zoster left side with crusting Ext: no clubbing/cyanosis/edema Neuro: A&O, moves all extremities, symmetrical strength b/l upper/lower, sensations intact b/l upper/lower Skin: warm/dry OBJ DATA Labs CBC & Chem 7: 03/20/20 05:17 03/21/20 05:06 Labs: Abnormal Lab Results 03/21/20 03/20/20 03/20/20 05:06 05:17 05:17 RBC 4.45 L Hgb 12.7 L Hct 39.6 L RDW 20.2 H MPV 12.9 H Neut % (Auto) Lymph % (Auto) Lymph # (Auto) 0.94 L Absolute Neutrophils VBG Lactic Acid Carbon Dioxide 20 L 21 L Anion Gap Glucose 108 H Uric Acid 8.3 H Calcium 8.5 L 8.5 L Total Bilirubin 1.2 H 1.6 H Direct Bilirubin 0.5 H 0.9 H Lactate Dehydrogenase 237 H Troponin T NT-Pro-B Natriuret Pep Total Protein 5.8 L Albumin 2.9 L 2.3 L Albumin/Globulin Ratio 0.6 L Procalcitonin Urine Protein Urine Urobilinogen Ur Leukocyte Esterase Urine WBC Uric Acid Crystals Hyaline Casts Urine Mucus 03/19/20 03/19/20 03/19/20 17:52 15:18 15:18 RBC Hgb Hct RDW MPV Neut % (Auto) Lymph % (Auto) Lymph # (Auto) Absolute Neutrophils VBG Lactic Acid Carbon Dioxide Anion Gap Glucose Uric Acid Calcium Total Bilirubin Direct Bilirubin Lactate Dehydrogenase Troponin T 0.04 H* 0.06 H* NT-Pro-B Natriuret Pep Total Protein Albumin Albumin/Globulin Ratio Procalcitonin 0.33 H Urine Protein Urine Urobilinogen Ur Leukocyte Esterase Urine WBC Uric Acid Crystals Hyaline Casts Urine Mucus 03/19/20 03/19/20 03/19/20 15:18 15:18 15:18 RBC Hgb Hct RDW 20.4 H MPV 12.8 H Neut % (Auto) 85.5 H Lymph % (Auto) 6.4 L Lymph # (Auto) 0.66 L Absolute Neutrophils 8.78 H VBG Lactic Acid 2.2 H Carbon Dioxide 20 L Anion Gap 17.0 H Glucose 107 H Uric Acid Calcium Total Bilirubin 2.8 H Direct Bilirubin Lactate Dehydrogenase Troponin T NT-Pro-B Natriuret Pep 56462.0 H Total Protein Albumin 3.0 L Albumin/Globulin Ratio Procalcitonin Urine Protein Urine Urobilinogen Ur Leukocyte Esterase Urine WBC Uric Acid Crystals Hyaline Casts Urine Mucus 03/19/20 08:43 RBC Hgb Hct RDW MPV Neut % (Auto) Lymph % (Auto) Lymph # (Auto) Absolute Neutrophils VBG Lactic Acid Carbon Dioxide Anion Gap Glucose Uric Acid Calcium Total Bilirubin Direct Bilirubin Lactate Dehydrogenase Troponin T NT-Pro-B Natriuret Pep Total Protein Albumin Albumin/Globulin Ratio Procalcitonin Urine Protein 30 A Urine Urobilinogen 2.0 A Ur Leukocyte Esterase 25 A Urine WBC 26 H Uric Acid Crystals Few A Hyaline Casts 16 H Urine Mucus Mod A Meds: Medications Acetaminophen (Tylenol) 650 mg PO Q6HP PRN PRN Reason: PAIN/FEVER > 101 Acyclovir (Zovirax) 800 mg PO 5XD [facility]; Protocol Last Admin: 03/20/20 21:22 Dose: 800 mg Documented by: Albuterol/Ipratropium (Duoneb) 3 ml NEB Q4HP PRN PRN Reason: Shortness Of Breath Apixaban (Eliquis) 5 mg PO BID [facility] Last Admin: 03/20/20 21:23 Dose: 5 mg Documented by: Atorvastatin Calcium (Lipitor) [address] [facility] Last Admin: 03/20/20 21:22 Dose: 40 mg Documented by: Colchicine (Colcrys) 0.6 mg PO DAILY [facility] Last Admin: 03/20/20 21:31 Dose: 0.3 mg Documented by: Docusate Sodium (Colace) 100 mg PO BID [facility] Last Admin: 03/20/20 21:22 Dose: 100 mg Documented by: Azithromycin 500 mg/ Dextrose 250 mls @ 250 mls/hr IV DAILY [facility]; Protocol Stop: 03/21/20 09:59 Ceftriaxone Sodium 2 gm/ (Dextrose) 50 mls @ 100 mls/hr IV DAILY [facility]; Protocol Magnesium Sulfate (Magnesium Sulfate) 2 gm in 50 mls @ 50 mls/hr IV UD PRN PRN Reason: Magnesium </= 1.6 Potassium Chloride 40 meq/ (Dextrose) 520 mls @ 130 mls/hr IV UD PRN PRN Reason: Potassium < 3 Labetalol HCl (Trandate) 0 mg IV Q2HP PRN PRN Reason: Hypertension Magnesium Oxide (Magnesium Oxide) 400 mg PO DAILY [facility] Metoprolol Tartrate (Lopressor) 5 mg IV Q2HP PRN PRN Reason: Tachyarrhythmias HR>110 Nitroglycerin (Nitrostat) 0.4 mg SL Q5M PRN PRN Reason: Chest Pain Ondansetron HCl (Zofran Odt) 4 mg SL Q6-8HP PRN PRN Reason: Nausea And Vomiting Ondansetron HCl (Zofran) 4 mg IV Q4HP PRN PRN Reason: Nausea And Vomiting Colchicine 0.3 Mg (Capsule) 1 dose PO DAILY [facility] Polyethylene Glycol (Miralax) 17 gm PO DAILYP PRN PRN Reason: Constipation Potassium Chloride (Kdur) 20 meq PO QAMCC [facility] Potassium Chloride (Kdur) 40 meq PO UD PRN PRN Reason: Potssium is 3-3.5 Potassium Chloride (Kdur) 40 meq PO UD PRN PRN Reason: Potassium < 3 Senna (Senokot) 2 tab PO DAILYP PRN PRN Reason: Constipation Sodium Chloride (Saline Flush) 10 ml IV Q8 [facility] Last Admin: 03/21/20 05:38 Dose: 10 ml Documented by: Tramadol HCl (Ultram) 50 mg PO Q8HP PRN; Protocol PRN Reason: pain A/P Narrative A/P Narrative: A: *CAP: PSI on admit =at least 95 -Elevated PCT -on room air *Sepsis: improving *?UTI: *Encephalopathy: 2/2 above. Improved -CT brain no acute *Hypotension: Resolved with IV fluids, 2/2 above plus BP meds *h/o nonischemic CMP (EF 25-30) w/ACID, Mod Pulm HTN: follows with [facility] -on BB/ACEI/lasix *Afib w/pacer: on BB/Eliquis. occasional jump in HR *h/o CVA: No residual deficits -pt stopped taking statin on own per pcp notes 07/26/2019, was on 40mg lipitor *CKD II: *HTN: *Generalized weakness/deconditioning: *Herpes Zoster: P: -Rocephin/azithromycin, mrsa neg -Pending BC/SC/UC -hold home coreg and low-dose ACEI for low BP, will give metoprolol today instead -IS/Acapella/RT/prn nebs -monitor i/os', weights -home lasix is prn only -restart statin -PT/OT -ppx: Home Eliquis Time Spent With Patient Time: Total time spent is greater than 50% in coordination of care (as documented) at patient's floor/unit and/or counseling patient: [facility] VTE Deep Vein Thrombosis/Pulmonary Embolism Present on Admission: No
[2020-03-21] MEDS: METOPROLOL TARTRATE 5 MG/5 ML VIAL IV PRN ×2 (08:10→13:55)
[2020-03-21] MEDS: cefTRIAXone 2 GM in DEXTROSE 5% IN WATER 50 ML IV SCH (08:58)
[2020-03-21] MEDS: COLCHICINE 0.6 MG PO SCH (08:59)
[2020-03-21] MEDS ORDERED: AZITHROMYCIN 500 MG in DEXTROSE 5% IN WATER 250 ML IV SCH (09:00)
[2020-03-21] MEDS ORDERED: COLCHICINE 0.6 MG CAPSULE PO SCH (09:00)
[2020-03-21] MEDS: APIXABAN 5 MG TABLET PO SCH ×2 (09:01→20:23)
[2020-03-21] MEDS: DOCUSATE SODIUM 100 MG CAPSULE PO SCH ×2 (09:01→20:24)
[2020-03-21] MEDS: MAGNESIUM OXIDE 400 MG TABLET PO SCH (09:01)
[2020-03-21] MEDS: POTASSIUM CHLORIDE 20 MEQ TABLET PO SCH (09:01)
[2020-03-21] MEDS: ACYCLOVIR 400 MG TABLET PO SCH ×5 (09:02→20:23)
--- NOTE | 2020-03-21 09:57 | Discharge Summary ---
Discharge Provider Provider Patient information: Note initiated : 03/21/20 at 9:56 am Service Date, if different from initiated Date: [] Patient: Luke Scott 74 y/o M admitted on 03/19/20 for weakness, confusion. Chief Complaint: [] Date of admission: 03/19/20 22:26 Discharge date: 03/23/20 Primary care physician: Pop Peña MD Consults: 03/19/20 Consult to Physician [CONS] Stat Comment: Consulting Provider: Chilango Canchola Reason For Exam: Physician to Consult Discharge Meds Discharge Medications Home Medications nitroglycerin 0.4 mg sublingual tablet 0.4 mg SUBLINGUAL Q5M PRN 07/26/19 [History Confirmed 03/20/20 Last Taken Unknown] lisinopril 2.5 mg tablet 2.5 mg PO QDAY #90 tab 08/01/19 [Rx Confirmed 03/20/20 Last Taken Unknown] colchicine 0.6 mg tablet 0.3 mg PO QDAY #30 tab 08/19/19 [Rx Confirmed 03/20/20 Last Taken Unknown] apixaban 5 mg tablet 5 mg PO BID #180 tab 01/08/20 [Rx Confirmed 03/20/20 Last Taken Unknown] ondansetron 4 mg disintegrating tablet 4 mg PO .COMPLEX #30 tab 02/13/20 [Rx Confirmed 03/20/20 Last Taken Unknown] B Complex-Vitamin B12 1,000 mcg PO DAILY 03/20/20 [History Confirmed 03/20/20 Last Taken Unknown] hydrocodone-acetaminophen 1 tab PO Q6 PRN 03/20/20 [History Confirmed 03/20/20 Last Taken Unknown] magnesium oxide 200 mg PO QDAY 03/20/20 [History Confirmed 03/20/20 Last Taken Unknown] spironolactone 12.5 mg PO QDAY 03/20/20 [History Confirmed 03/20/20 Last Taken Unknown] valacyclovir 1,000 mg PO TID 03/20/20 [History Confirmed 03/20/20 Last Taken Unknown] levofloxacin 750 mg PO Q24H #2 tab 03/21/20 [Rx Last Taken Unknown] metoprolol succinate [Toprol XL] 12.5 mg PO QDAY #30 tab 03/22/20 [Rx Last Taken Unknown] COURSE Hospital Course Hospital course: History of present illness: Mr. Scott is a 74 year old M Resents to the ED with weakness falling at home. Patient is a poor historian but according to him and notes it sounds like his had a cough for couple days he says is nonproductive. Denies shortness of breath. Denies fevers or chills. In the ED work-up included chest x-ray showed right-sided infiltrate. He did become hypotensive briefly that responded IV fluids. Lactate was mildly elevated. Procalcitonin mildly elevated. Seems to have some confusion in the ED. Does have a history of stroke but says he fully recovered. Does have a history of nonischemic cardiomyopathy. Concern for developing sepsis and thus patient requested for admission. He lives with his daughter. 03/20 No issues overnight. Possible urinary tract infection. Mentation improving today. CT brain no acute changes. Mild cough. "Some shortness of breath". 03/21 Feeling better. No new complaints. Cough and shortness of breath improving. Blood pressure better. We will likely give him metoprolol today instead of carvedilol given the low blood pressure she has had. 03/22 Had some confusion overnight per nursing. Vital signs stable. No new complaints. 03/23 Does have some confusion night per nursing. He is alert and oriented for me today but certainly has characteristics of someone with mild dementia or mild cognitive impairment. Patient with cough. No shortness of breath. Discussed with him regarding CODE STATUS, he says he has talked about DO NOT RESUSCITATE in the past but would like to talk with his daughter before making a decision. *Patient is high risk for readmission given his age and significant comorbidities. A: *CAP: *Sepsis: improving *Encephalopathy: 2/2 above. Improved. -Appears to have at least MCI vs early dementia -CT brain no acute, mild atrophy and chronic ishcemic changes *Hypotension: Resolved with IV fluids, 2/2 above plus BP meds *h/o nonischemic CMP (EF 25-30) w/ACID, Mod Pulm HTN: follows with [facility] -on BB/ACEI/lasix *Afib w/pacer: on BB/Eliquis. occasional jump in HR *h/o CVA: No residual deficits -pt stopped taking statin on own per pcp notes 07/26/2019, was on 40mg lipitor *CKD II: *HTN: *Generalized weakness/deconditioning: *Herpes Zoster: *Long-term prognosis guarded Discharge diagnosis: Pneumonia sepsis encephalopathy hypotension UTI Secondary discharge diagnosis: Nonischemic cardiomyopathy A. fib history of stroke chronic kidney disease hypertension generalized weakness deconditioning herpes zoster Time Spent with Patient Time attestation: Total time spent providing and/or coordinating discharge services: EXAM Constitutional Vitals: Temp Pulse Resp BP Pulse Ox 97.3 F 80 13 123/87 93 03/21/20 08:01 03/21/20 07:01 03/21/20 09:01 03/21/20 09:01 03/21/20 09:01 Discharge Data Data Completed and Pending Labs on day of discharge: Labs from last 24 hours 03/21/20 03/21/20 03/20/20 05:06 05:06 11:33 Sodium 136 Potassium 4.6 Chloride 101 Carbon Dioxide 20 L Anion Gap 15.0 BUN 22 Creatinine 0.8 GFR Calculation 88 Glucose 89 Uric Acid 7.5 Calcium 8.5 L Phosphorus 2.9 Magnesium 2.2 Total Bilirubin 1.2 H Direct Bilirubin 0.5 H GGT 31 AST 27 ALT 12 Alkaline Phosphatase 66 Lactate Dehydrogenase 237 H Total Protein 5.8 L Albumin 2.9 L Globulin 2.9 Albumin/Globulin Ratio 1.0 Triglycerides 96 Procalcitonin 0.84 H Mycoplasma pneumon IgG Mycoplasma pneumon IgM Ur Strep pneumoniae Ag Pending 03/20/20 11:33 Sodium Potassium Chloride Carbon Dioxide Anion Gap BUN Creatinine GFR Calculation Glucose Uric Acid Calcium Phosphorus Magnesium Total Bilirubin Direct Bilirubin GGT AST ALT Alkaline Phosphatase Lactate Dehydrogenase Total Protein Albumin Globulin Albumin/Globulin Ratio Triglycerides Procalcitonin Mycoplasma pneumon IgG Pending Mycoplasma pneumon IgM Pending Ur Strep pneumoniae Ag Preliminary micro results at discharge 03/19/20 18:34 Blood Culture - Preliminary Blood 03/19/20 18:31 Blood Culture - Preliminary Blood Discharge Plan Patient/Caregiver Discharge Instructions Activity: increase activity as tolerated Diet: Cardiac Activity Restrictions/Additional Instructions: Monitor blood pressure twice daily, keep a log and bring log to PCP on next appointment. Prescriptions: New levofloxacin 750 mg tablet 750 mg PO Q24H Qty: 2 RF: 0 metoprolol succinate [Toprol XL] 25 mg tablet extended release 24 hr 12.5 mg PO QDAY Qty: 30 RF: 0 Continued nitroglycerin 0.4 mg tablet, sublingual 0.4 mg SUBLINGUAL Q5M PRN (Reason: Chest Pain) RF: 0 lisinopril 2.5 mg tablet 2.5 mg PO QDAY Qty: 90 RF: 4 colchicine 0.6 mg tablet 0.3 mg PO QDAY Qty: 30 RF: 12 Eliquis 5 mg tablet 5 mg PO BID Qty: 180 RF: 3 ondansetron 4 mg tablet,disintegrating 4 mg PO .COMPLEX Qty: 30 RF: 1 B Complex-Vitamin B12 1,000 mcg PO DAILY RF: 0 hydrocodone-acetaminophen 5-325 mg Tablet 1 tab PO Q6 PRN (Reason: Pain) RF: 0 spironolactone 25 mg Tablet 12.5 mg PO QDAY RF: 0 magnesium oxide 200 mg magnesium Tablet 200 mg PO QDAY RF: 0 valacyclovir 1 gram Tablet 1,000 mg PO TID RF: 0 Discontinued carvedilol 12.5 mg tablet 6.25 mg PO BID Qty: 90 RF: 6 Follow Up Plan Follow up with: Pop Peña MD [Primary Care Provider] - Patient Disposition: Xfer SNF Prognosis: Undetermined Rehab Potential: Fair I certify that the patient requires SNF services: Yes Overall status at discharge: patient is progressing back to baseline Discharge Orders: Discharge Order (Routine); Ordered 03/23/20 Ordered By: Chilango Canchola [facility]TE Deep Vein Thrombosis/Pulmonary Embolism Present on Admission: No
[2020-03-21] MEDS ORDERED: PNEUMOCOCCAL 23-VAL P-SAC VAC 0.5 ML SYRINGE IM ONE (10:00)
[2020-03-21] MEDS ORDERED: ALBUMIN HUMAN 12.5 GM/50 ML BAG IV ONE (10:07)
[2020-03-21] MEDS: METOPROLOL TARTRATE 25 MG TABLET PO SCH ×3 (10:07→20:24)
[2020-03-21] MEDS ORDERED: HYDROcodone/APAP 5/325MG TABLET PO ONE (17:12)
[2020-03-21] MEDS: ATORVASTATIN 40 MG TABLET PO SCH (20:23)
[2020-03-22] MEDS: HYDROcodone/APAP 5/325MG TABLET PO PRN ×4 (01:10→20:27)
[2020-03-22] MEDS: 0.9 % SODIUM CHLORIDE 10 ML SYRINGE IV SCH ×2 (05:39→12:11)
[2020-03-22 06:45] LABS: Blood Urea Nitrogen 23 mg/dL (8-23); Calcium 8.6 mg/dL (8.6-10.4); Carbon Dioxide 20 mmol/L (22-30); Chloride 104 mmol/L (96-108); Glomerular Filtration Rate 73; Glucose 85 mg/dL (70-105)
--- NOTE | 2020-03-22 07:34 | Internal Med Progress Note ---
SUBJECTIVE Subjective Patient information: Note initiated : 03/22/20 at 7:33 am Service Date, if different from initiated Date: [] Patient: Luke Scott a 74 y/o M admitted on 03/19/20 for weakness, confusion. Chief Complaint: [] Interval history: History of present illness: Mr. Scott is a 74 year old M Resents to the ED with weakness falling at home. Patient is a poor historian but according to him and notes it sounds like his had a cough for couple days he says is nonproductive. Denies shortness of breath. Denies fevers or chills. In the ED work-up included chest x-ray showed right-sided infiltrate. He did become hypotensive briefly that responded IV fluids. Lactate was mildly elevated. Procalcitonin mildly elevated. Seems to have some confusion in the ED. Does have a history of stroke but says he fully recovered. Does have a history of nonischemic cardiomyopathy. Concern for developing sepsis and thus patient requested for admission. He lives with his daughter. 03/20 No issues overnight. Possible urinary tract infection. Mentation improving today. CT brain no acute changes. Mild cough. "Some shortness of breath". 03/21 Feeling better. No new complaints. Cough and shortness of breath improving. Blood pressure better. We will likely give him metoprolol today instead of carvedilol given the low blood pressure she has had. 03/22 Had some confusion overnight per nursing. Vital signs stable. No new complaints. Review of Systems: denies headache/fever/chills/nausea/vomiting/chest or abdominal pain/diarrhea. Otherwise see above. Constitutional Vitals: Vital Signs Temp Pulse Resp BP Pulse Ox 96.8 F L 80 11 L 113/82 96 03/22/20 04:00 03/22/20 07:01 03/22/20 07:01 03/22/20 07:01 03/22/20 07:01 Period Temp Pulse Resp BP Sys/Barker Pulse Ox Last 24 Hr 96.8 F-97.5 F 25-104 6-22 71-128/61-98 85-100 Intake and Output 03/21/20 03/22/20 03/22/20 21:59 05:59 13:59 Intake Total 170 200 Output Total 0 Balance 170 200 Weight 79.878 kg Intake & Output: Intake & Output 03/21/20 03/22/20 03/22/20 21:59 05:59 13:59 Intake Total 170 200 Output Total 0 Balance 170 200 Weight 79.878 kg Intake: IV 50 Oral 120 200 Output: Void Amount 0 Exam: General: Alert, Awake, No acute Distress Eyes/N/T: EOMI, Head/Neck: neck supple, CV: Paced rhythm, No murmurs, Pulm: minimal b/l rhonchi, no rales Abd: soft, nontender, +BS x4. herpes zoster left side with crusting Ext: no clubbing/cyanosis/edema Neuro: A&O, moves all extremities, symmetrical strength b/l upper/lower, sensations intact b/l upper/lower Skin: warm/dry OBJ DATA Labs CBC & Chem 7: 03/20/20 05:17 03/22/20 04:55 Labs: Abnormal Lab Results 03/22/20 03/22/20 03/21/20 04:55 04:55 05:06 RBC Hgb Hct RDW MPV Neut % (Auto) Lymph % (Auto) Lymph # (Auto) Absolute Neutrophils VBG Lactic Acid Carbon Dioxide 20 L 20 L Anion Gap Glucose Uric Acid Calcium 8.5 L Total Bilirubin 1.2 H Direct Bilirubin 0.5 H Lactate Dehydrogenase 237 H Troponin T NT-Pro-B Natriuret Pep Total Protein 5.8 L Albumin 2.9 L Albumin/Globulin Ratio Procalcitonin 0.55 H Urine Protein Urine Urobilinogen Ur Leukocyte Esterase Urine WBC Uric Acid Crystals Hyaline Casts Urine Mucus 03/21/20 03/20/20 03/20/20 05:06 05:17 05:17 RBC 4.45 L Hgb 12.7 L Hct 39.6 L RDW 20.2 H MPV 12.9 H Neut % (Auto) Lymph % (Auto) Lymph # (Auto) 0.94 L Absolute Neutrophils VBG Lactic Acid Carbon Dioxide 21 L Anion Gap Glucose 108 H Uric Acid 8.3 H Calcium 8.5 L Total Bilirubin 1.6 H Direct Bilirubin 0.9 H Lactate Dehydrogenase Troponin T NT-Pro-B Natriuret Pep Total Protein Albumin 2.3 L Albumin/Globulin Ratio 0.6 L Procalcitonin 0.84 H Urine Protein Urine Urobilinogen Ur Leukocyte Esterase Urine WBC Uric Acid Crystals Hyaline Casts Urine Mucus 03/19/20 03/19/20 03/19/20 17:52 15:18 15:18 RBC Hgb Hct RDW MPV Neut % (Auto) Lymph % (Auto) Lymph # (Auto) Absolute Neutrophils VBG Lactic Acid Carbon Dioxide Anion Gap Glucose Uric Acid Calcium Total Bilirubin Direct Bilirubin Lactate Dehydrogenase Troponin T 0.04 H* 0.06 H* NT-Pro-B Natriuret Pep Total Protein Albumin Albumin/Globulin Ratio Procalcitonin 0.33 H Urine Protein Urine Urobilinogen Ur Leukocyte Esterase Urine WBC Uric Acid Crystals Hyaline Casts Urine Mucus 03/19/20 03/19/20 03/19/20 15:18 15:18 15:18 RBC Hgb Hct RDW 20.4 H MPV 12.8 H Neut % (Auto) 85.5 H Lymph % (Auto) 6.4 L Lymph # (Auto) 0.66 L Absolute Neutrophils 8.78 H VBG Lactic Acid 2.2 H Carbon Dioxide 20 L Anion Gap 17.0 H Glucose 107 H Uric Acid Calcium Total Bilirubin 2.8 H Direct Bilirubin Lactate Dehydrogenase Troponin T NT-Pro-B Natriuret Pep 89390.0 H Total Protein Albumin 3.0 L Albumin/Globulin Ratio Procalcitonin Urine Protein Urine Urobilinogen Ur Leukocyte Esterase Urine WBC Uric Acid Crystals Hyaline Casts Urine Mucus 03/19/20 08:43 RBC Hgb Hct RDW MPV Neut % (Auto) Lymph % (Auto) Lymph # (Auto) Absolute Neutrophils VBG Lactic Acid Carbon Dioxide Anion Gap Glucose Uric Acid Calcium Total Bilirubin Direct Bilirubin Lactate Dehydrogenase Troponin T NT-Pro-B Natriuret Pep Total Protein Albumin Albumin/Globulin Ratio Procalcitonin Urine Protein 30 A Urine Urobilinogen 2.0 A Ur Leukocyte Esterase 25 A Urine WBC 26 H Uric Acid Crystals Few A Hyaline Casts 16 H Urine Mucus Mod A Meds: Medications Acetaminophen (Tylenol) 650 mg PO Q6HP PRN PRN Reason: PAIN/FEVER > 101 Hydrocodone Bitart/Acetaminophen ([place] 5/325mg) 1 tab PO Q6HP PRN; Protocol PRN Reason: Per Pain Protocol Last Admin: 03/22/20 01:10 Dose: 1 tab Documented by: Acyclovir (Zovirax) 800 mg PO 5XD [facility]; Protocol Last Admin: 03/21/20 20:23 Dose: 800 mg Documented by: Albuterol/Ipratropium (Duoneb) 3 ml NEB Q4HP PRN PRN Reason: Shortness Of Breath Apixaban (Eliquis) 5 mg PO BID [facility] Last Admin: 03/21/20 20:23 Dose: 5 mg Documented by: Atorvastatin Calcium (Lipitor) 40 mg PO HS [facility] Last Admin: 03/21/20 20:23 Dose: 40 mg Documented by: Docusate Sodium (Colace) 100 mg PO BID [facility] Last Admin: 03/21/20 20:24 Dose: 100 mg Documented by: Ceftriaxone Sodium 2 gm/ (Dextrose) 50 mls @ 100 mls/hr IV DAILY [facility]; Protocol Last Infusion: 03/21/20 10:19 Dose: Infused Documented by: Magnesium Sulfate (Magnesium Sulfate) 2 gm in 50 mls @ 50 mls/hr IV UD PRN PRN Reason: Magnesium </= 1.6 Potassium Chloride 40 meq/ (Dextrose) 520 mls @ 130 mls/hr IV UD PRN PRN Reason: Potassium < 3 Labetalol HCl (Trandate) 0 mg IV Q2HP PRN PRN Reason: Hypertension Magnesium Oxide (Magnesium Oxide) 400 mg PO DAILY [facility] Last Admin: 03/21/20 09:01 Dose: 400 mg Documented by: Metoprolol Tartrate (Lopressor) 5 mg IV Q2HP PRN PRN Reason: Tachyarrhythmias HR>110 Last Admin: 03/21/20 13:55 Dose: 5 mg Documented by: Metoprolol Tartrate (Lopressor) 6.25 mg PO BID [facility] Last Admin: 03/21/20 20:24 Dose: 6.25 mg Documented by: Nitroglycerin (Nitrostat) 0.4 mg SL Q5M PRN PRN Reason: Chest Pain Ondansetron HCl (Zofran Odt) 4 mg SL Q6-8HP PRN PRN Reason: Nausea And Vomiting Last Admin: 03/21/20 12:23 Dose: 4 mg Documented by: Ondansetron HCl (Zofran) 4 mg IV Q4HP PRN PRN Reason: Nausea And Vomiting Colchicine [Colcrys] (0.6 Mg Tab) 0.5 dose PO DAILY [facility] Last Admin: 03/21/20 08:59 Dose: 0.5 dose Documented by: Polyethylene Glycol (Miralax) 17 gm PO DAILYP PRN PRN Reason: Constipation Potassium Chloride (Kdur) 20 meq PO QAMCC [facility] Last Admin: 03/21/20 09:01 Dose: 20 meq Documented by: Potassium Chloride (Kdur) 40 meq PO UD PRN PRN Reason: Potssium is 3-3.5 Potassium Chloride (Kdur) 40 meq PO UD PRN PRN Reason: Potassium < 3 Senna (Senokot) 2 tab PO DAILYP PRN PRN Reason: Constipation Sodium Chloride (Saline Flush) 10 ml IV Q8 [facility] Last Admin: 03/22/20 05:39 Dose: 10 ml Documented by: A/P Narrative A/P Narrative: A: *CAP: PSI on admit =at least 95 -Elevated PCT -on room air *Sepsis: improving *?UTI: *Encephalopathy: 2/2 above. Improved, does have intermittent confusion at night, suspect at least MCI vs early dementia -CT brain no acute *Hypotension: intermittent, adjusted BP meds *h/o nonischemic CMP (EF 25-30) w/ACID, Mod Pulm HTN: follows with [place] [facility] -on BB/ACEI/lasix *Afib w/pacer: on BB/Eliquis. occasional jump in HR *h/o CVA: No residual deficits -pt stopped taking statin on own per pcp notes 07/26/2019, was on 40mg lipitor *CKD II: *HTN: *Generalized weakness/deconditioning: *Herpes Zoster: P: -Rocephin/azithromycin(finished), mrsa neg -Pending BC/SC/UC -hold home coreg and low-dose ACEI for low BP, changed to metoprolol -IS/Acapella/RT/prn nebs -monitor i/os', weights -home lasix is prn only -restart statin -PT/OT -poor long-term prognosis given severe biventricular heart failure -CM for likely SNF -ppx: Home Eliquis Time Spent With Patient Time: Total time spent is greater than 50% in coordination of care (as doc umented) at patient's floor/unit and/or counseling patient: QUALITY VTE Deep Vein Thrombosis/Pulmonary Embolism Present on Admission: No
[2020-03-22] MEDS: ACYCLOVIR 400 MG TABLET PO SCH ×5 (08:10→20:18)
[2020-03-22] MEDS: cefTRIAXone 2 GM in DEXTROSE 5% IN WATER 50 ML IV SCH (08:10)
[2020-03-22] MEDS: DOCUSATE SODIUM 100 MG CAPSULE PO SCH ×2 (08:10→20:18)
[2020-03-22] MEDS: MAGNESIUM OXIDE 400 MG TABLET PO SCH (08:10)
[2020-03-22] MEDS: POTASSIUM CHLORIDE 20 MEQ TABLET PO SCH (08:10)
[2020-03-22] MEDS: APIXABAN 5 MG TABLET PO SCH ×2 (08:11→20:18)
[2020-03-22] MEDS: COLCHICINE 0.6 MG PO SCH (08:11)
[2020-03-22] MEDS: METOPROLOL TARTRATE 25 MG TABLET PO SCH ×2 (08:13→20:18)
[2020-03-22] MEDS ORDERED: 0.9 % SODIUM CHLORIDE 250 ML IV ONE (19:27)
[2020-03-22] MEDS: ATORVASTATIN 40 MG TABLET PO SCH (20:19)
[2020-03-23] MEDS: HYDROcodone/APAP 5/325MG TABLET PO PRN (04:30)
[2020-03-23] MEDS: 0.9 % SODIUM CHLORIDE 10 ML SYRINGE IV SCH ×2 (05:11→05:13)
[2020-03-23] MEDS: ACYCLOVIR 400 MG TABLET PO SCH ×3 (08:01→14:39)
[2020-03-23] MEDS: POTASSIUM CHLORIDE 20 MEQ TABLET PO SCH (08:02)
[2020-03-23] MEDS: DOCUSATE SODIUM 100 MG CAPSULE PO SCH (08:02)
[2020-03-23] MEDS: METOPROLOL TARTRATE 25 MG TABLET PO SCH (08:02)
[2020-03-23] MEDS: MAGNESIUM OXIDE 400 MG TABLET PO SCH (08:02)
[2020-03-23] MEDS: APIXABAN 5 MG TABLET PO SCH (08:02)
[2020-03-23] MEDS: COLCHICINE 0.6 MG PO SCH (08:03)
[2020-03-23] MEDS: cefTRIAXone 2 GM in DEXTROSE 5% IN WATER 50 ML IV SCH (08:09)
[2020-03-23] MEDS ORDERED: 0.9 % SODIUM CHLORIDE 250 ML IV SCH ×2 (08:15→10:24)
--- NOTE | 2020-03-23 10:05 | Internal Med Progress Note ---
SUBJECTIVE Subjective Patient information: Note initiated : 03/23/20 at 10:02 am Service Date, if different from initiated Date: [] Patient: Luke Scott a 74 y/o M admitted on 03/19/20 for weakness, confusion. Chief Complaint: [] Interval history: History of present illness: Mr. Scott is a 74 year old M Resents to the ED with weakness falling at home. Patient is a poor historian but according to him and notes it sounds like his had a cough for couple days he says is nonproductive. Denies shortness of breath. Denies fevers or chills. In the ED work-up included chest x-ray showed right-sided infiltrate. He did become hypotensive briefly that responded IV fluids. Lactate was mildly elevated. Procalcitonin mildly elevated. Seems to have some confusion in the ED. Does have a history of stroke but says he fully recovered. Does have a history of nonischemic cardiomyopathy. Concern for developing sepsis and thus patient requested for admission. He lives with his daughter. 03/20 No issues overnight. Possible urinary tract infection. Mentation improving today. CT brain no acute changes. Mild cough. "Some shortness of breath". 03/21 Feeling better. No new complaints. Cough and shortness of breath improving. Blood pressure better. We will likely give him metoprolol today instead of carvedilol given the low blood pressure she has had. 03/22 Had some confusion overnight per nursing. Vital signs stable. No new complaint s. 03/23 Does have some confusion night per nursing. He is alert and oriented for me today but certainly has characteristics of someone with mild dementia or mild cognitive impairment. Patient with cough. No shortness of breath. Discussed with him regarding CODE STATUS, he says he has talked about DO NOT RESUSCITATE in the past but would like to talk with his daughter before making a decision. Review of Systems: denies headache/fever/chills/nausea/vomiting/chest or abdominal pain/diarrhea. Otherwise see above. Constitutional Vitals: Vital Signs Temp Pulse Resp BP Pulse Ox 96.6 F L 80 16 107/81 95 03/23/20 08:04 03/23/20 06:01 03/23/20 08:04 03/23/20 08:04 03/23/20 08:00 Period Temp Pulse Resp BP Sys/Barker Pulse Ox Last 24 Hr 96.6 F-98 F 67-83 9-25 102-126/73-96 93-100 Intake and Output 03/22/20 03/23/20 03/23/20 21:59 05:59 13:59 Intake Total 840 350 250 Balance 840 350 250 Weight 79.605 kg Intake & Output: Intake & Output 03/22/20 03/23/20 03/23/20 21:59 05:59 13:59 Intake Total 840 350 250 Balance 840 350 250 Weight 79.605 kg Intake: Nourishment/Supplement quantity 240 (ml) IV 250 Sodium Chloride 0.9% 250 ml @ 250 50 mls/hr IV .Q5H ONE Rx#: [id number] Oral 600 350 Other: Percent of Meal Consumed 25% Feeding Ability Needs Supervision Nourishment/Supplement name Ensure Stool Size Large Stool Color Brown Stool Consistency Soft # of times incontinent of 1 Bowels Exam: General: Alert, Awake, No acute Distress Eyes/N/T: EOMI, Head/Neck: neck supple, CV: Paced rhythm, No murmurs, Pulm: right side rhonhci, no wheezing Abd: soft, nontender, +BS x4. herpes zoster left side with crusting Ext: no clubbing/cyanosis, trace b/l LE Neuro: A&O, moves all extremities, symmetrical strength b/l upper/lower, sensations intact b/l upper/lower Skin: warm/dry OBJ DATA Labs CBC & Chem 7: 03/20/20 05:17 03/22/20 04:55 Labs: Abnormal Lab Results 03/22/20 03/22/20 03/21/20 04:55 04:55 05:06 Carbon Dioxide 20 L 20 L Calcium 8.5 L Total Bilirubin 1.2 H Direct Bilirubin 0.5 H Lactate Dehydrogenase 237 H Total Protein 5.8 L Albumin 2.9 L Procalcitonin 0.55 H 03/21/20 05:06 Carbon Dioxide Calcium Total Bilirubin Direct Bilirubin Lactate Dehydrogenase Total Protein Albumin Procalcitonin 0.84 H Meds: Medications Acetaminophen (Tylenol) 650 mg PO Q6HP PRN PRN Reason: PAIN/FEVER > 101 Last Admin: 03/23/20 08:05 Dose: 650 mg Documented by: Hydrocodone Bitart/Acetaminophen ([place] 5/325mg) 1 tab PO Q6HP PRN; Protocol PRN Reason: Per Pain Protocol Last Admin: 03/23/20 04:30 Dose: 1 tab Documented by: Acyclovir (Zovirax) 800 mg PO 5XD [facility]; Protocol Last Admin: 03/23/20 08:01 Dose: 800 mg Documented by: Albuterol/Ipratropium (Duoneb) 3 ml NEB Q4HP PRN PRN Reason: Shortness Of Breath Apixaban (Eliquis) 5 mg PO BID [facility] Last Admin: 03/23/20 08:02 Dose: 5 mg Documented by: Atorvastatin Calcium (Lipitor) 40 mg PO HS [facility] Last Admin: 03/22/20 20:19 Dose: 40 mg Documented by: Docusate Sodium (Colace) 100 mg PO BID [facility] Last Admin: 03/23/20 08:02 Dose: Not Given Documented by: Ceftriaxone Sodium 2 gm/ (Dextrose) 50 mls @ 100 mls/hr IV DAILY [facility]; Protocol Last Admin: 03/23/20 08:09 Dose: 100 mls/hr Documented by: Magnesium Sulfate (Magnesium Sulfate) 2 gm in 50 mls @ 50 mls/hr IV UD PRN PRN Reason: Magnesium </= 1.6 Potassium Chloride 40 meq/ (Dextrose) 520 mls @ 130 mls/hr IV UD PRN PRN Reason: Potassium < 3 Sodium Chloride (Sodium Chloride 0.9%) 250 mls @ 50 mls/hr IV .Q5H [facility] Stop: 03/23/20 13:14 Last Admin: 03/23/20 08:10 Dose: 50 mls/hr Documented by: Labetalol HCl (Trandate) 0 mg IV Q2HP PRN PRN Reason: Hypertension Magnesium Oxide (Magnesium Oxide) 400 mg PO DAILY [facility] Last Admin: 03/23/20 08:02 Dose: 400 mg Documented by: Metoprolol Tartrate (Lopressor) 5 mg IV Q2HP PRN PRN Reason: Tachyarrhythmias HR>110 Last Admin: 03/21/20 13:55 Dose: 5 mg Documented by: Metoprolol Tartrate (Lopressor) 6.25 mg PO BID [facility] Last Admin: 03/23/20 08:02 Dose: 6.25 mg Documented by: Nitroglycerin (Nitrostat) 0.4 mg SL Q5M PRN PRN Reason: Chest Pain Ondansetron HCl (Zofran Odt) 4 mg SL Q6-8HP PRN PRN Reason: Nausea And Vomiting Last Admin: 03/21/20 12:23 Dose: 4 mg Documented by: Ondansetron HCl (Zofran) 4 mg IV Q4HP PRN PRN Reason: Nausea And Vomiting Colchicine [Colcrys] (0.6 Mg Tab) 0.5 dose PO DAILY [facility] Last Admin: 03/23/20 08:03 Dose: 0.5 dose Documented by: Polyethylene Glycol (Miralax) 17 gm PO DAILYP PRN PRN Reason: Constipation Potassium Chloride (Kdur) 20 meq PO QAC [facility] Last Admin: 03/23/20 08:02 Dose: 20 meq Documented by: Potassium Chloride (Kdur) 40 meq PO UD PRN PRN Reason: Potssium is 3-3.5 Potassium Chloride (Kdur) 40 meq PO UD PRN PRN Reason: Potassium < 3 Senna (Senokot) 2 tab PO DAILYP PRN PRN Reason: Constipation Sodium Chloride (Saline Flush) 10 ml IV Q8 [facility] Last Admin: 03/23/20 05:13 Dose: 10 ml Documented by: A/P Narrative A/P Narrative: A: *CAP: PSI on admit =at least 95 -Elevated PCT -on room air *Sepsis: improved *Encephalopathy: 2/2 above. Improved, does have intermittent confusion at night -Appears to have at least MCI vs early dementia -CT brain no acute, mild atrophy and chronic ishcemic changes *Hypotension: intermittent, adjusted BP meds *h/o nonischemic CMP (EF 25-30) w/ACID, Mod Pulm HTN: follows with [place] [facility] -on BB/ACEI/lasix *Afib w/pacer: on BB/Eliquis *h/o CVA: No residual deficits -pt stopped taking statin on own per pcp notes 07/26/2019, was on 40mg lipitor *CKD II: *HTN: *Generalized weakness/deconditioning: *Herpes Zoster: *Long-term prognosis guarded P: -Rocephin/azithromycin(finished), mrsa neg -Pending BC/SC -hold home coreg and low-dose ACEI for low BP, changed to metoprolol -IS/Acapella/RT/prn nebs -monitor i/os', weights -home lasix is prn only -restart statin -PT/OT -poor long-term prognosis given severe biventricular heart failure -CM for likely SNF, ?tomorrow -ppx: Home Eliquis *wants to discuss code status with daughter Time Spent With Patient Time: Total time spent is greater than 50% in coordination of care (as documented) at patient's floor/unit and/or counseling patient: QUALITY VTE Deep Vein Thrombosis/Pulmonary Embolism Present on Admission: No
[2020-03-23] MEDS ORDERED: POTASSIUM CHLORIDE 20 MEQ TABLET PO PRN ×2 (10:24)
[2020-03-23] MEDS ORDERED: NITROGLYCERIN 0.4 MG TAB.SUBL SL PRN (10:24)
[2020-03-23] MEDS ORDERED: IPRATROPIUM/ALBUTEROL 3 ML AMPUL.NEB NEB PRN (10:24)
[2020-03-23] MEDS ORDERED: SENNOSIDES 1 TABLET PO PRN (10:24)
[2020-03-23] MEDS ORDERED: POLYETHYLENE GLYCOL 3350 17 GM PACKET PO PRN (10:24)
[2020-03-23] MEDS ORDERED: ONDANSETRON 4 MG/2 ML VIAL IV PRN (10:24)
[2020-03-23] MEDS ORDERED: MAGNESIUM SULFATE 2 GM/50 ML BAG IV PRN (10:24)
[2020-03-23] MEDS ORDERED: ONDANSETRON 4 MG ODT TABLET SL PRN (10:24)
[2020-03-23] MEDS ORDERED: HYDROcodone/APAP 5/325MG TABLET PO PRN (10:24)
[2020-03-23] MEDS ORDERED: POTASSIUM CHLORIDE 40 MEQ in DEXTROSE 5% IN WATER 500 ML IV PRN (10:24)
[2020-03-23] MEDS ORDERED: LABETALOL 5 MG/ML ML IV PRN (10:24)
[2020-03-23] MEDS ORDERED: METOPROLOL TARTRATE 5 MG/5 ML VIAL IV PRN (10:24)
[2020-03-23] MEDS ORDERED: ACETAMINOPHEN 325 MG TABLET PO PRN (10:24)
[2020-03-23] MEDS ORDERED: 0.9 % SODIUM CHLORIDE 10 ML SYRINGE IV SCH (14:00)
[2020-03-23] MEDS ORDERED: APIXABAN 5 MG TABLET PO SCH (21:00)
[2020-03-23] MEDS ORDERED: ATORVASTATIN 40 MG TABLET PO SCH (21:00)
[2020-03-23] MEDS ORDERED: METOPROLOL TARTRATE 25 MG TABLET PO SCH (21:00)
[2020-03-23] MEDS ORDERED: DOCUSATE SODIUM 100 MG CAPSULE PO SCH (21:00)
[2020-03-24] MEDS ORDERED: POTASSIUM CHLORIDE 20 MEQ TABLET PO SCH (08:00)
[2020-03-24] MEDS ORDERED: COLCHICINE 0.6 MG PO SCH (09:00)
[2020-03-24] MEDS ORDERED: MAGNESIUM OXIDE 400 MG TABLET PO SCH (09:00)
[2020-03-24] MEDS ORDERED: cefTRIAXone 2 GM in DEXTROSE 5% IN WATER 50 ML IV SCH (09:00)
[2020-03-24 16:06] LABS: M. Pneumoniae IGG 1.26
== END 2020-03-23 15:45 | DRG 871 ==
LOC: ED 14:02 → ICU 22:26 → MEDSUR 22:28 → ICU 22:34
PROVIDERS: ADMIT Internal Medicine; ATTEND Internal Medicine

== ENCOUNTER 2021-06-18 14:10 | Inpatient (IN) ==
[2021-06-18] MEDS ORDERED: FUROSEMIDE 40 MG/4 ML VIAL IV ONE (14:58)
--- NOTE | 2021-06-18 15:42 | XRay Report ---
HISTORY: Exacerbation of congestive heart failure with increasing weakness FINDINGS: There is a large alveolar infiltrate throughout the left lung with greatest consolidation around the left hilum. There is a much milder interstitial type infiltrate throughout the right lung. There are small bilateral pleural effusions. The heart is moderately enlarged. Margins are partially obscured by overlying consolidated lung parenchyma. Pacemaker is well-positioned. Comparison with the prior exam from 05/17/21 shows the infiltrates are new. The heart may have enlarged. IMPRESSION: Large infiltrate in the left lung and small infiltrate in the right. The pattern is more consistent with pneumonia rather than pulmonary edema Interpreted and Authenticated by: Alexis Rivero 06/18/21
[2021-06-18 15:51] LABS: Hematocrit 43.4 % (40.1-51.0); Hemoglobin 13.6 g/dL (13.7-17.5); Mean Corpuscular HGB Conc 31.3 g/dL (31.0-36.0); Mean Platelet Volume 12.2 fL (7.4-10.4); Platelet Count 213 K/mcL (140-440); RBC 4.77 M/mcL (4.63-6.08); Red Cell Distribution Width 16.9 % (11.5-14.5); WBC 7.1 K/mcL (4.5-11.0)
[2021-06-18 16:12] LABS: ALT/SGPT 6 U/L (<40); AST/SGOT 14 U/L (<40); Albumin 2.8 gm/dL (3.2-5.2); Albumin/Globulin Ratio 0.9 (1.0-2.3); Alkaline Phosphatase 141 U/L (39-117); Bilirubin,Total 1.4 mg/dL (0.1-1.0); Blood Urea Nitrogen 32 mg/dL (8-23); Calcium 8.7 mg/dL (8.6-10.4); Carbon Dioxide 21 mmol/L (22-30); Chloride 104 mmol/L (96-108); Globulin 3.2 gm/dL (2.2-3.7); Glomerular Filtration Rate 65; Glucose 105 mg/dL (70-105)
--- NOTE | 2021-06-18 16:17 | Emergency Department Note ---
HPI General Chief complaint: Weakness Stated complaint: Weakness Time Seen by Provider: 06/18/21 14:56 Source: EMS Mode of arrival: EMS Limitations: no limitations History of Present Illness HPI Narrative: 75-year-old male with history of NICM HFrEF 20% in 2019, status post BiV [employer] pacemaker with chronic left bundle branch block, and history of persistent A. fib now controlled with beta-blockade and amiodarone presents for increasing weakness and worsening lower extremity edema in the last week. Patient was admitted to our hospital from 03/19/20-03/23/20 for sepsis, encephalopathy, and pneumonia. He currently lives with his daughter who is his primary caregiver. She states that he is now so weak he has difficulty standing. He becomes weak with exertion and has had some increasing shortness of breath. They have in- home health nursing, but they were unable to draw labs and collect a urine sample today. For this reason they come into the ER with concerns for possible UTI and worsening heart failure. The patient had previously been taking torsemide. It sounds like they were concerned that he was losing quite a bit of weight so called her primary care provider who stopped this medication. The daughter notes that he has had a significant 10 to 20 pound weight loss in the last few months. The patient denies F/C/S. He denies changes in bowel habits. Denies hematuria or dysuria. He is alert and oriented x3. Related Data Home Medications Medication Instructions Recorded Confirmed amiodarone 200 mg tablet 100 mg PO DAILY tab 02/03/21 06/18/21 lisinopril 2.5 mg tablet 2.5 mg PO QDAY 06/18/21 06/18/21 ondansetron 4 mg disintegrating See Rx Instructions .ROUTE 06/18/21 06/18/21 tablet .COMPLEX PRN Previous Rx's Medication Instructions Recorded apixaban 5 mg tablet (Eliquis) 5 mg PO BID #180 tab 01/08/20 metoprolol succinate 25 mg 12.5 mg PO QDAY #30 tab 03/22/20 tablet,extended release 24 hr (Toprol XL) colchicine 0.6 mg tablet 0.3 mg PO QDAY #30 tab 08/31/20 gabapentin 100 mg capsule 200 mg PO QID #240 cap 02/15/21 ipratropium 0.5 mg-albuterol 3 mg 3 ml INHALATION Q6H PRN #90 ml 03/08/21 (2.5 mg base)/3 mL nebulization soln torsemide 10 mg tablet 10 mg PO QDAY #30 tab 03/24/21 hydrocodone 5 mg-acetaminophen 325 1 tab PO Q6H PRN #120 tab 05/17/21 mg tablet Wheelchair #1 ea 05/19/21 Allergies Allergy/AdvReac Type Severity Reaction Status Date / Time No Known Drug Allergies Allergy Verified 05/17/21 10:19 Review of Systems ROS ROS Narrative: Narrative: All systems ED: reviewed and negative except as stated. [facility] Narrative Patient History Narrative: Narrative: Medical/Surgical/Family History All Active Problems (Updated 06/18/21 @ 19:45 by Gabriela Bland PA-C) Lumbosacral strain (Acute) BARNETT (dyspnea on exertion) (Acute) UTI (urinary tract infection) (Acute) Weakness (Acute) HA (acute kidney injury) (Acute) Post herpetic neuralgia (Acute) Difficulty in walking (Chronic) Weakness (Chronic) Painful swelling of joint (Chronic) Heart disease (Chronic) Acute pain associated with herpes zoster (Chronic) Other postherpetic nervous system involvement (Chronic) Hypertension (Chronic) Chronic systolic heart failure (Chronic) Encounter for long-term (current) use of medications (Chronic) Cardiomyopathy (Chronic) Pneumonia (Chronic) Altered mental status (Chronic) HZV (herpes zoster virus) post herpetic neuralgia (Chronic) Herpes zoster (Chronic) Urinary tract infection (Chronic) Flank pain (Chronic) Fractured great toe (Chronic) Pernicious anemia (Chronic) CHF exacerbation (Chronic) History of sinus surgery (Chronic ~1979) History of foot surgery (Chronic ~1972) Stroke (Chronic) SOB (shortness of breath) (Chronic) Chest pain (Chronic) Cerebrovascular accident (CVA) (Chronic) Gout (Chronic) Complete atrioventricular block (Chronic) Presence of permanent cardiac pacemaker (Chronic) Cerebrovascular accident (Chronic) Acute bronchitis (Chronic) Elevated serum creatinine (Chronic) Fitting and adjustment of automatic implantable cardiac defibrillator (Chronic) History of tympanoplasty (Chronic) History of malignant neoplasm (Chronic) History of cardiac catheterization (Chronic 05/29/14) Status post bunionectomy (Chronic) History of arthroscopy of knee (Chronic) History of appendectomy (Chronic) Premature ventricular contractions (Chronic) Osteoarthritis (Chronic) Mitral regurgitation (Chronic) Hypertension, essential, benign (Chronic) Erectile dysfunction (Chronic) Coronary artery disease (Chronic) Bundle branch block (Chronic) Acute decompensated heart failure (Chronic) Medical History Acute decompensated heart failure 05/27/2014 - Dr. Lama [facility] -- Systolic/diastolic heart failure, resolved Acute pain associated with herpes zoster Bundle branch block 05/27/2014 - Dr. Lama [facility] - Left Cardiomyopathy 05/27/2014 - Dr. Lama [facility] - Nonischemic Cerebrovascular accident (CVA) acute Chest pain Chronic systolic heart failure Complete atrioventricular block Coronary artery disease 05/27/2014 - Dr. Lama [facility] - Nonobstructive Difficulty in walking Elevated serum creatinine Erectile dysfunction Fitting and adjustment of automatic implantable cardiac defibrillator [employer] ICD - Soham Leo [id number] #[id number] Implanted 10/13/14 Fractured great toe Gout Heart disease History of malignant neoplasm Hypertension Hypertension, essential, benign Mitral regurgitation (06/24/2014-[facility]) Osteoarthritis wrists Other postherpetic nervous system involvement Painful swelling of joint Premature ventricular contractions 05/27/2014 - Dr. Lama [facility] Presence of permanent cardiac pacemaker SOB (shortness of breath) Stroke Weakness Surgical History History of appendectomy History of arthroscopy of knee right History of bunionectomy (~1974) Right History of cardiac catheterization (05/29/14) right and left-done by Dr. Lama at [facility] History of cardiac defibrillator placement History of foot surgery (~1972) History of permanent cardiac pacemaker placement History of sinus surgery (~1979) polyps, sinus History of tympanoplasty R Status post bunionectomy L Family History Father , age 87 natural Chronic Kidney Disease High blood pressure Brother Coronary artery disease Heart disease Diabetes mellitus Mother , 84 natural Diabetes mellitus Unknown Cancer daughter Son , age 13 Cancer Daughter , age 23 MVA (motor vehicle accident) Social History Smoking Status: Never smoker Alcohol Intake Frequency: holiday/special occasion only Substance Use: does not use Exam Narrative Narrative: General: AOx3, NAD, nontoxic appearing. Weak appearing. Pleasant and conversant. HEENT: PERRL, EOMI, normocephalic. Dry mucous membranes. Facial wasting and dentures in place Chest: Symmetric, no pain to palpation Respiratory: Lungs with rhonchus and coarse crackles throughout. No respiratory distress. Unlabored breathing. Heart: Regular rate and rhythm, no murmurs/clicks/rubs. Abdomen: Non-tender, Non distended, normal bowel tones. No organomegaly. Extremities: Warm and well perfused. 3+ pitting edema bilaterally. 3+ pedal edema bilaterally. DP is not appreciated due to edema, but the feet are warm and well perfused. No venous stasis. Neuro: No focal deficits. Cranial nerves II-XII grossly normal. Moves all 4 spontaneously. Skin: Warm dry, no rashes or lesions, no cyanosis. Psych: Normal mood and affect Heme/Lymph: No abnormal bruising General Limitations: no limitations Course Course Course Narrative: 75-year-old male with history of nonischemic cardiomyopathy with EF of 20% presents with increasing weakness and lower extremity edema Reevaluation(s) Reevaluation #1: Obtain basic labs, BNP, chest x-ray, UA, EKG Give 40 mg IV Lasix and monitor urine output Reevaluation #2: Chest x-ray shows left pleural effusion and left middle lobe infiltrate consistent with a pneumonia. However, patient is afebrile and does not meet SIRS criteria within normal white blood cell count. I have ordered a procalcito azeb to check for possible bacterial pneumonia. Patient does not have significant electrolyte derangements and his creatinine is 1.1. BNP is greater than 64,000 making this picture more consistent with acute CHF exacerbation. Will EKG shows AV dual placed complexes with a rate of 76 bpm. QTC is 501 ms. Reevaluation #3: Patient has acute CHF exacerbation and I have reached out to the hospitalist for admission. Vital Signs Vital signs: Vital Signs Pulse Rate 73 06/18/21 14:11 Respiratory Rate 20 06/18/21 14:11 Blood Pressure 106/85 06/18/21 14:11 Pulse Oximetry (%) 92 06/18/21 14:11 Pulse Rate 67 06/18/21 16:10 Respiratory Rate 13 06/18/21 18:51 Blood Pressure 97/62 06/18/21 18:51 Pulse Oximetry (%) 90 06/18/21 16:10 MDM MDM Narrative Medical decision making narrative: Acute CHF exacerbation versus pneumonia Clinically his exam is more consistent with acute CHF exacerbation with significantly elevated BNP. He is afebrile and does not meet SIRS criteria. Regardless, I have ordered blood cultures and procalcitonin. The patient meets criteria for admission given acute CHF exacerbation and has been accepted by the hospitalist. Currently pending admission. Lab Data Result diagrams: 06/18/21 15:12 06/18/21 15:11 Labs: Lab Results 06/18/21 06/18/21 06/18/21 Range/Units 15:11 15:11 15:12 WBC 7.1 (4.5-11.0) K/mcL RBC 4.77 (4.63-6.08) M/mcL Hgb 13.6 L (13.7-17.5) g/dL Hct 43.4 (40.1-51.0) % MCV 91.0 (80.0-100.0) fL MCH 28.5 (26.0-34.0) pg MCHC 31.3 (31.0-36.0) g/dL RDW 16.9 H (11.5-14.5) % Plt Count 213 (140-440) K/mcL MPV 12.2 H (7.4-10.4) fL Seg Neutrophils % 85 H (38-78) % Band Neutrophils % 3 (0-10) % Lymphocytes % 8 L (15-49) % Monocytes % (Manual) 4 (1-12) % Platelet Estimate Normal (Normal) RBC Morphology Normal (Normal) Sodium 138 (133-145) mmol/L Potassium 5.0 (3.3-5.1) mmol/L Chloride 104 (96-108) mmol/L Carbon Dioxide 21 L (22-30) mmol/L Anion Gap 13.0 (8.0-16.0) BUN 32 H (8-23) mg/dL Creatinine 1.1 (0.7-1.2) mg/dL GFR Calculation 65 Glucose 105 (70-105) mg/dL Calcium 8.7 (8.6-10.4) mg/dL Total Bilirubin 1.4 H (0.1-1.0) mg/dL AST 14 (<40) U/L ALT 6 (<40) U/L Alkaline Phosphatase 141 H (39-117) U/L C-Reactive Protein (0.03-0.80) mg/dL NT-Pro-B Natriuret Pep 18080.0 H (<450.0) pg/mL Total Protein 6.0 (5.9-8.4) gm/dL Albumin 2.8 L (3.2-5.2) gm/dL Globulin 3.2 (2.2-3.7) gm/dL Albumin/Globulin Ratio 0.9 L (1.0-2.3) Procalcitonin 0.19 H (<0.10) ng/mL Urine Color Urine Appearance (Clear) Urine pH (5.0-9.0) Ur Specific [place] (1.000-1.035) Urine Protein (Negative) mg/dL Urine Glucose (UA) (Negative) mg/dL Urine Ketones (Negative) mg/dL Urine Occult Blood (Negative) mg/dL Urine Nitrate (Negative) Urine Bilirubin (Negative) mg/dL Urine Urobilinogen mg/dL Ur Leukocyte Esterase (Negative) /uL Urine RBC (0-3) /hpf Urine WBC (0-4) /hpf Ur Squamous Epith Cells (0-4) /hpf Urine Bacteria (0) /hpf Hyaline Casts (0-2) /lph Urine Mucus (None) /hpf Ur Culture Indicated? 06/18/21 06/18/21 Range/Units 16:07 18:06 WBC (4.5-11.0) K/mcL RBC (4.63-6.08) M/mcL Hgb (13.7-17.5) g/dL Hct (40.1-51.0) % MCV (80.0-100.0) fL MCH (26.0-34.0) pg MCHC (31.0-36.0) g/dL RDW (11.5-14.5) % Plt Count (140-440) K/mcL MPV (7.4-10.4) fL Seg Neutrophils % (38-78) % Band Neutrophils % (0-10) % Lymphocytes % (15-49) % Monocytes % (Manual) (1-12) % Platelet Estimate (Normal) RBC Morphology (Normal) Sodium (133-145) mmol/L Potassium (3.3-5.1) mmol/L Chloride (96-108) mmol/L Carbon Dioxide (22-30) mmol/L Anion Gap (8.0-16.0) BUN (8-23) mg/dL Creatinine (0.7-1.2) mg/dL GFR Calculation Glucose (70-105) mg/dL Calcium (8.6-10.4) mg/dL Total Bilirubin (0.1-1.0) mg/dL AST (<40) U/L ALT (<40) U/L Alkaline Phosphatase (39-117) U/L C-Reactive Protein 10.40 H (0.03-0.80) mg/dL NT-Pro-B Natriuret Pep (<450.0) pg/mL Total Protein (5.9-8.4) gm/dL Albumin (3.2-5.2) gm/dL Globulin (2.2-3.7) gm/dL Albumin/Globulin Ratio (1.0-2.3) Procalcitonin (<0.10) ng/mL Urine Color Yellow Urine Appearance Clear (Clear) Urine pH 5.0 (5.0-9.0) Ur Specific [place] 1.005 (1.000-1.035) Urine Protein Negative (Negative) mg/dL Urine Glucose (UA) Negative (Negative) mg/dL Urine Ketones Negative (Negative) mg/dL Urine Occult Blood 0.20 (Negative) mg/dL Urine Nitrate Negative (Negative) Urine Bilirubin Negative (Negative) mg/dL Urine Urobilinogen Negative mg/dL Ur Leukocyte Esterase Negative (Negative) /uL Urine RBC 43 H (0-3) /hpf Urine WBC < 1 (0-4) /hpf Ur Squamous Epith Cells 0 (0-4) /hpf Urine Bacteria None (0) /hpf Hyaline Casts 23 H (0-2) /lph Urine Mucus Few A (None) /hpf Ur Culture Indicated? No ED POC Tests ED POC Tests: IESHA - SARS Antigen Negative Discharge Plan Patient/Caregiver Discharge Instructions Pt seen by REGULATORY COORDINATOR/PA only: Yes Clinical Impression: Acute decompensated heart failure, Cardiomyopathy Patient Disposition: Xfer As Inpt ([facility]) Discharge Date/Time: 06/18/21 18:55
[2021-06-18 16:18] LABS: Band Neutrophils % 3 % (0-10); Lymphocytes % 8 % (15-49); Monocytes % (Manual) 4 % (1-12); Platelet Estimate NORMAL (Normal); RBC Morphology NORMAL (Normal); Segmented Neutrophils % 85 % (38-78)
[2021-06-18 17:22] LABS: Appearance,Urine CLEAR (Clear); Bilirubin,Urine Negative (Negative); Color,Urine YELLOW; Culture Indicated,Urine No; Glucose,Urine (UA) Negative (Negative); Ketones,Urine Negative (Negative); Leukocyte Esterase,Urine Negative /uL (Negative); Mucus,Urine FEW /hpf; Nitrate,Urine Negative (Negative); Protein,Urine Negative (Negative); Specific Gravity,Urine 1.005 (1.000-1.035); Urine Hyaline Cast 23 /lph (0-2); Urine RBC 43 /hpf (0-3); Urine Squamous Epithelial Cell 0 /hpf (0-4); Urine WBC < 1 /hpf (0-4); Urobilinogen,Urine Negative
--- NOTE | 2021-06-18 17:34 | Internal Med History&Physical ---
HPI History of Present Illness Patient information: Note initiated : 06/18/21 at 5:20 pm Service Date, if different from initiated Date: [] Patient: Luke Scott a 75 y/o M admitted on for Weakness. Chief Complaint: [] History of present illness: Mr. Scott is a 75 year old M Presents to the ED with increasing generalized weakness and malaise. He has had poor appetite and has had weight loss over the past months sounds to be about 30 pounds. But especially over the past weeks. He was put on torsemide for peripheral edema which improved it but because of the poor oral intake and concern for dehydration recently the torsemide was stopped. His edema has subsequently significantly worsened. Patient has been using primarily wheelchair over the past month prior to that he was primarily walker. He [facility] to home with home health care. He is developed a cough since Monday but family member states he is unable to cough up sputum although sounds like he has sputum to cough up. Patient denies fevers chest pain shortness of breath. Urinalysis is pending. Procalcitonin not significantly elevated. Concern in the ED was for acute exacerbation of CHF versus pneumonia. Chest x- ray read is more of a pneumonia. But increasing peripheral edema noted with elevated BNP. This patient was seen over a year ago by myself for pneumonia with sepsis and then at that time I felt his long-term prognosis was quite guarded. Review of Systems: Pertinent positives as above. Denies headache/fever/chills/nausea/vomiting/chest or abdominal pain/dyspnea/diarrhea. Remaining 10 point review of system reviewed negative. PFSH PFSH All Active Problems (Updated 06/18/21 @ 19:45 by Gabriela Bland PA-C) Lumbosacral strain (Acute) BARNETT (dyspnea on exertion) (Acute) UTI (urinary tract infection) (Acute) Weakness (Acute) HA (acute kidney injury) (Acute) Post herpetic neuralgia (Acute) Difficulty in walking (Chronic) Weakness (Chronic) Painful swelling of joint (Chronic) Heart disease (Chronic) Acute pain associated with herpes zoster (Chronic) Other postherpetic nervous system involvement (Chronic) Hypertension (Chronic) Chronic systolic heart failure (Chronic) Encounter for long-term (current) use of medications (Chronic) Cardiomyopathy (Chronic) Pneumonia (Chronic) Altered mental status (Chronic) HZV (herpes zoster virus) post herpetic neuralgia (Chronic) Herpes zoster (Chronic) Urinary tract infection (Chronic) Flank pain (Chronic) Fractured great toe (Chronic) Pernicious anemia (Chronic) CHF exacerbation (Chronic) History of sinus surgery (Chronic ~1979) History of foot surgery (Chronic ~1972) Stroke (Chronic) SOB (shortness of breath) (Chronic) Chest pain (Chronic) Cerebrovascular accident (CVA) (Chronic) Gout (Chronic) Complete atrioventricular block (Chronic) Presence of permanent cardiac pacemaker (Chronic) Cerebrovascular accident (Chronic) Acute bronchitis (Chronic) Elevated serum creatinine (Chronic) Fitting and adjustment of automatic implantable cardiac defibrillator (Chronic) History of tympanoplasty (Chronic) History of malignant neoplasm (Chronic) History of cardiac catheterization (Chronic 05/29/14) Status post bunionectomy (Chronic) History of arthroscopy of knee (Chronic) History of appendectomy (Chronic) Premature ventricular contractions (Chronic) Osteoarthritis (Chronic) Mitral regurgitation (Chronic) Hypertension, essential, benign (Chronic) Erectile dysfunction (Chronic) Coronary artery disease (Chronic) Bundle branch block (Chronic) Acute decompensated heart failure (Chronic) Medical History Acute decompensated heart failure 05/27/2014 - Dr. Lama [facility] -- Systolic/diastolic heart failure, resolved Acute pain associated with herpes zoster Bundle branch block 05/27/2014 - Dr. Lama [facility] - Left Cardiomyopathy 05/27/2014 - Dr. Lama [facility] - Nonischemic Cerebrovascular accident (CVA) acute Chest pain Chronic systolic heart failure Complete atrioventricular block Coronary artery disease 05/27/2014 - Dr. Lama [facility] - Nonobstructive Difficulty in walking Elevated serum creatinine Erectile dysfunction Fitting and adjustment of automatic implantable cardiac defibrillator [employer] ICD - [employer] [id number] #[id number] Implanted 10/13/14 Fractured great toe Gout Heart disease History of malignant neoplasm Hypertension Hypertension, essential, benign Mitral regurgitation (06/24/2014-[facility]) Osteoarthritis wrists Other postherpetic nervous system involvement Painful swelling of joint Premature ventricular contractions 05/27/2014 - Dr. Lama [facility] Presence of permanent cardiac pacemaker SOB (shortness of breath) Stroke Weakness Surgical History History of appendectomy History of arthroscopy of knee right History of bunionectomy (~1974) Right History of cardiac catheterization (05/29/14) right and left-done by Dr. Lama at [facility] History of cardiac defibrillator placement History of foot surgery (~1972) History of permanent cardiac pacemaker placement History of sinus surgery (~1979) polyps, sinus History of tympanoplasty R Status post bunionectomy L Family History Father , age 87 natural Chronic Kidney Disease High blood pressure Brother Coronary artery disease Heart disease Diabetes mellitus Mother , 84 natural Diabetes mellitus Unknown Cancer daughter Son , age 13 Cancer Daughter , age 23 MVA (motor vehicle accident) Social History household members: significant other marital status: education level: college occupational status: retired 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 smoking status: Former smoker alcohol intake frequency: holiday/special occasion only substance use type: does not use MEDS/ALLERGIES Home Medications and Allergies Home Medications Medication Instructions Recorded Confirmed Type apixaban 5 mg tablet (Eliquis) 5 mg PO BID #180 tab 01/08/20 06/18/21 Rx metoprolol succinate 25 mg 12.5 mg PO QDAY #30 tab 03/22/20 06/18/21 Rx tablet,extended release 24 hr (Toprol XL) colchicine 0.6 mg tablet 0.3 mg PO QDAY #30 tab 08/31/20 06/18/21 Rx amiodarone 200 mg tablet 100 mg PO DAILY tab 02/03/21 06/18/21 History gabapentin 100 mg capsule 200 mg PO QID #240 cap 02/15/21 06/18/21 Rx ipratropium 0.5 mg-albuterol 3 mg 3 ml INHALATION Q6H PRN #90 ml 03/08/21 06/18/21 Rx (2.5 mg base)/3 mL nebulization soln torsemide 10 mg tablet 10 mg PO QDAY #30 tab 03/24/21 06/18/21 Rx hydrocodone 5 mg-acetaminophen 325 1 tab PO Q6H PRN #120 tab 05/17/21 06/18/21 Rx mg tablet Wheelchair #1 ea 05/19/21 Rx lisinopril 2.5 mg tablet 2.5 mg PO QDAY 06/18/21 06/18/21 History ondansetron 4 mg disintegrating See Rx Instructions .ROUTE 06/18/21 06/18/21 History tablet .COMPLEX PRN Allergies Allergy/AdvReac Type Severity Reaction Status Date / Time No Known Drug Allergies Allergy Verified 05/17/21 10:19 EXAM Constitutional Vitals: Pulse Resp BP Pulse Ox 67 22 101/69 90 06/18/21 16:10 06/18/21 17:12 06/18/21 16:10 06/18/21 16:10 Exam: General: Alert, Awake, No acute Distress Eyes/N/T: EOMI, PERRL, dryMM Head/Neck: neck supple, normocephalic atraumatic, no JVD appreciated CV: RRR-paced, No murmurs, normal s1/s2 Pulm: Rhonchi/Rales b/l, no wheezing Abd: soft, nontender, +BS x4 Ext: no clubbing/cyanosis, 3+ b/l LE edema Neuro: Alert, no focal deficits, moves all extremities, CN 2-12 grossly intact, symmetrical strength b/l upper/lower, sensations intact b/l upper/lower Skin: warm/dry DATA Data Completed and Pending Labs: Labs from last 24 hours 06/18/21 06/18/21 06/18/21 16:07 15:12 15:11 WBC 7.1 RBC 4.77 Hgb 13.6 L Hct 43.4 MCV 91.0 MCH 28.5 MCHC 31.3 RDW 16.9 H Plt Count 213 MPV 12.2 H Seg Neutrophils % 85 H Band Neutrophils % 3 Lymphocytes % 8 L Monocytes % (Manual) 4 Platelet Estimate Normal RBC Morphology Normal Sodium Potassium Chloride Carbon Dioxide Anion Gap BUN Creatinine GFR Calculation Glucose Calcium Total Bilirubin AST ALT Alkaline Phosphatase NT-Pro-B Natriuret Pep Total Protein Albumin Globulin Albumin/Globulin Ratio Procalcitonin Pending Urine Color Pending Urine Appearance Pending Urine pH Pending Ur Specific [place] Pending Urine Protein Pending Urine Glucose (UA) Pending Urine Ketones Pending Urine Occult Blood Pending Urine Nitrate Pending Urine Bilirubin Pending Urine Urobilinogen Pending Ur Leukocyte Esterase Pending 06/18/21 15:11 WBC RBC Hgb Hct MCV MCH MCHC RDW Plt Count MPV Seg Neutrophils % Band Neutrophils % Lymphocytes % Monocytes % (Manual) Platelet Estimate RBC Morphology Sodium 138 Potassium 5.0 Chloride 104 Carbon Dioxide 21 L Anion Gap 13.0 BUN 32 H Creatinine 1.1 GFR Calculation 65 Glucose 105 Calcium 8.7 Total Bilirubin 1.4 H AST 14 ALT 6 Alkaline Phosphatase 141 H NT-Pro-B Natriuret Pep 98354.0 H Total Protein 6.0 Albumin 2.8 L Globulin 3.2 Albumin/Globulin Ratio 0.9 L Procalcitonin Urine Color Urine Appearance Urine pH Ur Specific [place] Urine Protein Urine Glucose (UA) Urine Ketones Urine Occult Blood Urine Nitrate Urine Bilirubin Urine Urobilinogen Ur Leukocyte Esterase A/P Narrative A/P Narrative: A: *Acute on chronic systolic (EF ) CHF, w/ACID, Mod Pulm HTN: -follows with [facility] -on BB/ACEI/torsemide *Monitor for possible PNA: -pct low -CXR with left side alveolar infiltrate and mild right side interstitial infiltrate *Generalized weakness/deconditioning/Poor functional status: Patient has been declining over the past months especially past weeks *Severe protein calorie malnutrition: muscle and subcutaneous fat loss, diminished functional status, hypoalbuminemia, weight loss *MCI 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: *Afib w/pacer: on Amio/BB/Eliquis *h/o CVA: No residual deficits -pt stopped taking statin on own per pcp notes 07/26/2019, was on 40mg lipitor *CKD II: *Long-term prognosis guarded P: -IV lasix -echo -monitor for possible PNA -f/u cxr -hold ACEI for low BP, start low-dose BB in AM -cont Amio -IS/Acapella/RT/prn nebs -monitor i/os', weights -PT/OT -Dietary consult/supplements -poor long-term prognosis given severe biventricular heart failure -CM for likely SNF -ppx: Home Eliquis DNR Time Spent With Patient Time: Total time spent is greater than 50% in coordination of care (as documented) at patient's floor/unit and/or counseling patient: Total time spent with greater than 50% in coordination of care (as documented) at patient's floor/unit and/or counseling patient:: Greater than 70 minutes
[2021-06-18] MEDS ORDERED: POTASSIUM CHLORIDE 40 MEQ in DEXTROSE 5% IN WATER 500 ML IV PRN (19:17)
[2021-06-18] MEDS ORDERED: POLYETHYLENE GLYCOL 3350 17 GM PACKET PO PRN (19:17)
[2021-06-18] MEDS ORDERED: ONDANSETRON 4 MG/2 ML VIAL IV PRN (19:17)
[2021-06-18] MEDS ORDERED: MAGNESIUM SULFATE 2 GM/50 ML BAG IV PRN (19:17)
[2021-06-18] MEDS ORDERED: IPRATROPIUM/ALBUTEROL 3 ML AMPUL.NEB NEB PRN (19:17)
[2021-06-18] MEDS ORDERED: POTASSIUM CHLORIDE 20 MEQ TABLET PO PRN ×2 (19:17)
[2021-06-18] MEDS ORDERED: SENNOSIDES 1 TABLET PO PRN (19:17)
[2021-06-18] MEDS: 0.9 % SODIUM CHLORIDE 10 ML SYRINGE IV SCH ×2 (20:50→23:14)
[2021-06-18] MEDS ORDERED: ALBUMIN HUMAN 12.5 GM/50 ML BAG IV ONE (21:13)
[2021-06-18] MEDS: APIXABAN 5 MG TABLET PO SCH (21:50)
[2021-06-18] MEDS: DOCUSATE SODIUM 100 MG CAPSULE PO SCH (21:50)
[2021-06-18] MEDS: HYDROcodone/APAP 5/325MG TABLET PO PRN (21:50)
[2021-06-18] MEDS: GABAPENTIN 100 MG CAPSULE PO SCH (21:53)
[2021-06-18] MEDS ORDERED: ALBUMIN HUMAN 50 ML IV ONE (22:29)
[2021-06-19] MEDS: 0.9 % SODIUM CHLORIDE 10 ML SYRINGE IV SCH ×3 (05:40→22:02)
[2021-06-19 06:45] LABS: Hematocrit 40.2 % (40.1-51.0); Hemoglobin 12.3 g/dL (13.7-17.5); Mean Cell Volume 92.2 fL (80.0-100.0); Mean Corpuscular HGB Conc 30.6 g/dL (31.0-36.0); Platelet Count 187 K/mcL (140-440); RBC 4.36 M/mcL (4.63-6.08); Red Cell Distribution Width 16.8 % (11.5-14.5); WBC 5.7 K/mcL (4.5-11.0)
[2021-06-19 07:22] LABS: ALT/SGPT < 5 U/L (<40); AST/SGOT 9 U/L (<40); Albumin 2.6 gm/dL (3.2-5.2); Alkaline Phosphatase 114 U/L (39-117); Bilirubin,Direct 0.8 mg/dL (<0.3); Bilirubin,Total 1.4 mg/dL (0.1-1.0); Blood Urea Nitrogen 31 mg/dL (8-23); Calcium 8.4 mg/dL (8.6-10.4); Carbon Dioxide 21 mmol/L (22-30); Chloride 104 mmol/L (96-108); Globulin 2.7 gm/dL (2.2-3.7); Glomerular Filtration Rate 73; Glucose 95 mg/dL (70-105); Lactate Dehydrogenase 211 U/L (135-225); Phosphorous 3.6 mg/dL (2.5-4.5); Triglycerides 105 mg/dL (<150); Uric Acid 6.5 mg/dL (2.5-8.0)
[2021-06-19 07:33] LABS: Anisocytosis 1+ (None Seen); Hypochromasia 1+ (None Seen); Lymphocytes % 3 % (15-49); Monocytes % (Manual) 8 % (1-12); Platelet Estimate NORMAL (Normal); RBC Morphology ABNORMAL (Normal); Segmented Neutrophils % 89 % (38-78)
[2021-06-19] MEDS ORDERED: FUROSEMIDE 40 MG/4 ML VIAL IV ONE (08:10)
[2021-06-19] MEDS ORDERED: ALBUMIN HUMAN 12.5 GM/50 ML BAG IV ONE (08:10)
--- NOTE | 2021-06-19 08:14 | Internal Med Progress Note ---
SUBJECTIVE Subjective Patient information: Note initiated : 06/19/21 at 8:07 am Service Date, if different from initiated Date: [] Patient: Luke Scott 75 y/o M admitted on 06/18/21 for Weakness. Chief Complaint: [] Interval history: History of present illness: Mr. Scott is a 75 year old M Presents to the ED with increasing generalized weakness and malaise. He has had poor appetite and has had weight loss over the past months sounds to be about 30 pounds. But especially over the past weeks. He was put on torsemide for peripheral edema which improved it but because of the poor oral intake and concern for dehydration recently the torsemide was stopped. His edema has subsequently significantly worsened. Patient has been using primarily wheelchair over the past month prior to that he was primarily walker. He recently got out of a jail facility to home with home health care. He is developed a cough since Monday but family member states he is unable to cough up sputum although sounds like he has sputum to cough up. Patient denies fevers chest pain shortness of breath. Urinalysis is pending. Procalcitonin not significantly elevated. Concern in the ED was for acute exacerbation of CHF versus pneumonia. Chest x- ray read is more of a pneumonia. But increasing peripheral edema noted with elevated BNP. This patient was seen over a year ago by myself for pneumonia with sepsis and then at that time I felt his long-term prognosis was quite guarded. 06/19 Patient sitting up in chair. Lower extremity edema improved with compression wraps and Lasix. Patient has occasional cough but denies shortness of breath above baseline.Suspected aspiration per observation by nursing. ST eval and dysphagia diet. Consolidating infiltrate remains on the left. Right infiltrate worsened. Will start antibiotics for aspiration pneumonia. Review of Systems: denies headache/fever/chills/nausea/vomiting/chest or abdominal pain/diarrhea. Otherwise see above. Constitutional Vitals: Vital Signs Temp Pulse Resp BP Pulse Ox 98.5 F 72 26 H 106/65 92 06/19/21 08:01 06/19/21 06:01 06/19/21 08:01 06/19/21 08:01 06/19/21 08:01 Period Temp Pulse Resp BP Sys/Barker Pulse Ox Last 24 Hr 97.0 F-98.5 F 53-75 13-26 93-127/57-85 90-96 Intake and Output 06/18/21 06/19/21 06/19/21 21:59 05:59 13:59 Intake Total 170 Output Total 925 703 Balance -925 -533 Weight 66.587 kg Intake & Output: Intake & Output 06/18/21 06/19/21 06/19/21 21:59 05:59 13:59 Intake Total 170 Output Total 925 703 Balance -925 -533 Weight 66.587 kg Intake: IV 50 Oral 120 Output: Void Amount 925 700 # of times incontinent of urine 3 Other: Urine Appearance Clear Clear Urine Color Bright Yellow Pale Urine Odor Normal Normal Exam: General: Alert, Awake, No acute Distress Eyes/N/T: EOMI, Head/Neck: neck supple, CV: RRR-paced, No murmurs, Pulm: Rhonchi/Rales b/l, no wheezing Abd: soft, nontender, +BS x4 Ext: no clubbing/cyanosis, 2+ b/l LE edema Neuro: Alert, no focal deficits, moves all extremities, Skin: warm/dry OBJ DATA Labs CBC & Chem 7: 06/19/21 05:52 06/19/21 05:52 Labs: Abnormal Lab Results 06/19/21 06/19/21 06/19/21 05:52 05:52 05:52 RBC 4.36 L Hgb 12.3 L MCHC 30.6 L RDW 16.8 H MPV 12.0 H Seg Neutrophils % 89 H Lymphocytes % 3 L RBC Morphology Abnormal A Hypochromasia 1+ A Anisocytosis 1+ A Carbon Dioxide 21 L BUN 31 H Calcium 8.4 L Total Bilirubin 1.4 H Direct Bilirubin 0.8 H Alkaline Phosphatase C-Reactive Protein 10.30 H NT-Pro-B Natriuret Pep Total Protein 5.3 L Albumin 2.6 L Albumin/Globulin Ratio Procalcitonin 0.17 H Urine RBC Hyaline Casts Urine Mucus 06/18/21 06/18/21 06/18/21 18:06 16:07 15:12 RBC Hgb 13.6 L MCHC RDW 16.9 H MPV 12.2 H Seg Neutrophils % 85 H Lymphocytes % 8 L RBC Morphology Hypochromasia Anisocytosis Carbon Dioxide BUN Calcium Total Bilirubin Direct Bilirubin Alkaline Phosphatase C-Reactive Protein 10.40 H NT-Pro-B Natriuret Pep Total Protein Albumin Albumin/Globulin Ratio Procalcitonin Urine RBC 43 H Hyaline Casts 23 H Urine Mucus Few A 06/18/21 06/18/21 15:11 15:11 RBC Hgb MCHC RDW MPV Seg Neutrophils % Lymphocytes % RBC Morphology Hypochromasia Anisocytosis Carbon Dioxide 21 L BUN 32 H Calcium Total Bilirubin 1.4 H Direct Bilirubin Alkaline Phosphatase 141 H C-Reactive Protein NT-Pro-B Natriuret Pep 33705.0 H Total Protein Albumin 2.8 L Albumin/Globulin Ratio 0.9 L Procalcitonin 0.19 H Urine RBC Hyaline Casts Urine Mucus Meds: Medications Hydrocodone Bitart/Acetaminophen (Hydrocodone/Apap 5/325mg Tablet) 1 tab PO Q6HP PRN PRN Reason: Pain Last Admin: 06/18/21 21:50 Dose: 1 tab Documented by: Albuterol/Ipratropium (Ipratropium/Albuterol 3 Ml Ampul.Neb) 3 ml NEB Q4HP PRN PRN Reason: Shortness Of Breath Amiodarone HCl (Amiodarone Hcl 200 Mg Tablet) 100 mg PO DAILY [facility] Apixaban (Apixaban 5 Mg Tablet) 5 mg PO BID [facility] Last Admin: 06/18/21 21:50 Dose: 5 mg Documented by: Docusate Sodium (Docusate Sodium 100 Mg Capsule) 100 mg PO BID [facility] Last Admin: 06/18/21 21:50 Dose: 100 mg Documented by: Gabapentin (Gabapentin 100 Mg Capsule) 200 mg PO QID [facility] Last Admin: 06/18/21 21:53 Dose: 200 mg Documented by: Potassium Chloride 40 meq/ (Dextrose) 520 mls @ 130 mls/hr IV UD PRN PRN Reason: Potassium < 3 Magnesium Sulfate (Magnesium Sulfate) 2 gm in 50 mls @ 50 mls/hr IV UD PRN PRN Reason: Magnesium </= 1.6 Metoprolol Succinate (Metoprolol Succinate 25 Mg Tab.Xl.24h) 12.5 mg PO QDAY [facility] Non-Formulary Medication (Colchicine) 0.3 mg PO QDAY [facility] Ondansetron HCl (Ondansetron 4 Mg/2 Ml Vial) 4 mg IV Q4HP PRN PRN Reason: Nausea And Vomiting Polyethylene Glycol (Polyethylene Glycol 3350 17 Gm Packet) 17 gm PO DAILYP PRN PRN Reason: Constipation Potassium Chloride (Potassium Chloride 20 Meq Tablet) 40 meq PO UD PRN PRN Reason: Potssium is 3-3.5 Potassium Chloride (Potassium Chloride 20 Meq Tablet) 40 meq PO UD PRN PRN Reason: Potassium < 3 Senna (Sennosides 1 Tablet) 2 tab PO DAILYP PRN PRN Reason: Constipation Sodium Chloride (0.9 % Sodium Chloride 10 Ml Syringe) 10 ml IV Q8 [facility] Last Admin: 06/19/21 05:40 Dose: 10 ml Documented by: A/P Narrative A/P Narrative: A: *Acute on chronic systolic (EF ) CHF, w/ACID, Mod Pulm HTN: -follows with [facility] -on BB/ACEI/torsemide -good UOP *Suspected Aspiration PNA: -CXR with significant left consolidation and right side infiltrate worsened *Generalized weakness/deconditioning/Poor functional status: Patient has been d eclining over the past months especially past weeks *Severe protein calorie malnutrition: muscle and subcutaneous fat loss, diminished functional status, hypoalbuminemia, weight loss *MCI 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: *Afib w/pacer: on Amio/BB/Eliquis *h/o CVA: No residual deficits -pt stopped taking statin on own per pcp notes 07/26/2019, was on 40mg lipitor *CKD II: *Long-term prognosis guarded P: -IV lasix today -echo -ST eval and Dyphagia diet -abx for aspiration PNA -CT chest to f/u persistent dense consolidation left side -hold ACEI for low BP, start low-dose BB in AM -cont Amio -IS/Acapella/RT/prn nebs -monitor i/os', weights -PT/OT -comp wraps and elevate legs -Dietary consult/supplements -poor long-term prognosis given severe biventricular heart failure -CM for likely SNF -ppx: Home Eliquis DNR Time Spent With Patient Time: Total time spent is greater than 50% in coordination of care (as documented) at patient's floor/unit and/or counseling patient: Total time spent with greater than 50% in coordination of care (as documented) at patient's floor/unit and/or counseling patient:: 25 - 35 minutes QUALITY Stroke Symptom Onset Unknown: No VTE Deep Vein Thrombosis/Pulmonary Embolism Present on Admission: No
[2021-06-19] MEDS: AMIODARONE HCL 200 MG TABLET PO SCH (09:02)
[2021-06-19] MEDS: GABAPENTIN 100 MG CAPSULE PO SCH ×4 (09:02→21:52)
[2021-06-19] MEDS: DOCUSATE SODIUM 100 MG CAPSULE PO SCH ×2 (09:02→21:52)
[2021-06-19] MEDS: METOPROLOL SUCCINATE 25 MG TAB.XL.24H PO SCH (09:02)
[2021-06-19] MEDS: APIXABAN 5 MG TABLET PO SCH ×2 (09:02→21:52)
--- NOTE | 2021-06-19 10:09 | XRay Report ---
HISTORY: Short of breath, follow-up pulmonary infiltrates, weakness FINDINGS: There is a large consolidating infiltrate throughout the left lung. The greatest consolidation is around the left hilum. This has not changed significantly. The pleural effusion on the left side has shifted and now overlies the left apex. There is a mild generalized infiltrate throughout the right lung with a tiny right-sided pleural effusion. The infiltrate in the right upper lobe has become worse since 06/18/21. There has been no change in the right lower lobe. The heart is mildly enlarged. Pacemaker remains well-positioned. Pulmonary vessels are obscured by the infiltrates. IMPRESSION: Persistent bilateral infiltrates, left worse than right with worsening involvement in the right upper lobe Interpreted and Authenticated by: Alexis Rivero 06/19/21
[2021-06-19] MEDS: cefTRIAXone 2 GM in DEXTROSE 5% IN WATER 50 ML IV SCH (11:37)
[2021-06-19] MEDS: HYDROcodone/APAP 5/325MG TABLET PO PRN ×2 (17:14→23:56)
--- NOTE | 2021-06-19 21:51 | EKG ---
[facility] Care Test Date: 2021-06-18 Pat Name: Luke Scott Department: ED Room: Gender: Male Healthcare Prof: KYLEE : 1945 Requested By: Gabriela Bland Order Number: [id number] Reading MD: Vj Ambrosio D.O. Measurements Intervals [place] Rate: 76 P: 0 TN: 98 QRS: 111 QRSD: 156 T: -64 QT: 445 QTc: 501 Interpretive Statements A-V dual-paced complexes w/ some inhibition No further analysis attempted due to paced rhythm Electronically Signed On 06-19-2021 21:51:21 PDT by Vj Ambrosio D.O. /store/M0/[id number]
[2021-06-20] MEDS: 0.9 % SODIUM CHLORIDE 10 ML SYRINGE IV SCH ×3 (06:05→20:08)
[2021-06-20 07:49] LABS: ALT/SGPT < 5 U/L (<40); AST/SGOT 9 U/L (<40); Albumin 2.4 gm/dL (3.2-5.2); Albumin/Globulin Ratio 0.9 (1.0-2.3); Alkaline Phosphatase 103 U/L (39-117); Bilirubin,Direct 0.6 mg/dL (<0.3); Blood Urea Nitrogen 26 mg/dL (8-23); Calcium 8.4 mg/dL (8.6-10.4); Carbon Dioxide 22 mmol/L (22-30); Chloride 103 mmol/L (96-108); Globulin 2.6 gm/dL (2.2-3.7); Glomerular Filtration Rate 83; Glucose 89 mg/dL (70-105); Lactate Dehydrogenase 179 U/L (135-225); Phosphorous 3.7 mg/dL (2.5-4.5); Triglycerides 79 mg/dL (<150); Uric Acid 6.8 mg/dL (2.5-8.0)
--- NOTE | 2021-06-20 07:53 | Internal Med Progress Note ---
SUBJECTIVE Subjective Patient information: Note initiated : 06/20/21 at 7:47 am Service Date, if different from initiated Date: [] Patient: Luke Scott 75 y/o M admitted on 06/18/21 for Weakness. Chief Complaint: [] Interval history: History of present illness: Mr. Scott is a 75 year old M Presents to the ED with increasing generalized weakness and malaise. He has had poor appetite and has had weight loss over the past months sounds to be about 30 pounds. But especially over the past weeks. He was put on torsemide for peripheral edema which improved it but because of the poor oral intake and concern for dehydration recently the torsemide was stopped. His edema has subsequently significantly worsened. Patient has been using primarily wheelchair over the past month prior to that he was primarily walker. He [facility] to home with home health care. He is developed a cough since Monday but family member states he is unable to cough up sputum although sounds like he has sputum to cough up. Patient denies fevers chest pain shortness of breath. Urinalysis is pending. Procalcitonin not significantly elevated. Concern in the ED was for acute exacerbation of CHF versus pneumonia. Chest x- ray read is more of a pneumonia. But increasing peripheral edema noted with elevated BNP. This patient was seen over a year ago by myself for pneumonia with sepsis and then at that time I felt his long-term prognosis was quite guarded. 06/19 Patient sitting up in chair. Lower extremity edema improved with compression wraps and Lasix. Patient has occasional cough but denies shortness of breath above baseline.Suspected aspiration per observation by nursing. ST eval and dysphagia diet. Consolidating infiltrate remains on the left. Right infiltrate worsened. Will start antibiotics for aspiration pneumonia. 06/[address]. [address] with moderate bilateral effusions. As well as severe consolidating infiltrate left lung suspected to be combination of atelectasis and pneumonia and a moderate groundglass infiltrate in right upper lobe. Patient likely benefit from thoracentesis given his hypoxia and effusions. Has occasional cough. Complains of chronic back pain. Review of Systems: denies headache/fever/chills/nausea/vomiting/chest or abdominal pain/diarrhea. Otherwise see above. Constitutional Vitals: Vital Signs Temp Pulse Resp BP Pulse Ox 97.6 F 74 12 102/71 94 06/20/21 04:45 06/20/21 06:00 06/20/21 06:00 06/20/21 06:00 06/20/21 06:00 Period Temp Pulse Resp BP Sys/Barker Pulse Ox Last 24 Hr 97.4 F-99.3 F 66-76 12- 85-114/34-89 87-98 Intake and Output 06/19/21 06/20/21 06/20/21 21:59 05:59 13:59 Intake Total 420 Output Total 226 226 Balance 194 -226 Weight 65.952 kg Intake & Output: Intake & Output 06/19/21 06/20/21 06/20/21 21:59 05:59 13:59 Intake Total 420 Output Total 226 226 Balance 194 -226 Weight 65.952 kg Intake: Oral 420 Output: Void Amount 225 225 # of times incontinent of urine 1 1 Other: Meal Dinner Percent of Meal Consumed 50% Feeding Ability Assist with Tray Set Up Urine Appearance Clear Clear Urine Color Bright Yellow Bright Yellow Urine Odor Normal Exam: General: Alert, Awake, No acute Distress Eyes/N/T: EOMI, Head/Neck: neck supple, CV: RRR-paced, No murmurs, Pulm: Rhonchi b/l with some improvement, b/l wheezing noted Abd: soft, nontender, +BS x4 Ext: no clubbing/cyanosis, 1-2+ b/l LE edema Neuro: Alert, no focal deficits, moves all extremities, Skin: warm/dry OBJ DATA Labs CBC & Chem 7: 06/19/21 05:52 06/20/21 06:08 Labs: Abnormal Lab Results 06/19/21 06/19/21 06/19/21 05:52 05:52 05:52 RBC 4.36 L Hgb 12.3 L MCHC 30.6 L RDW 16.8 H MPV 12.0 H Seg Neutrophils % 89 H Lymphocytes % 3 L RBC Morphology Abnormal A Hypochromasia 1+ A Anisocytosis 1+ A Carbon Dioxide 21 L BUN 31 H Calcium 8.4 L Total Bilirubin 1.4 H Direct Bilirubin 0.8 H Alkaline Phosphatase C-Reactive Protein 10.30 H NT-Pro-B Natriuret Pep Total Protein 5.3 L Albumin 2.6 L Albumin/Globulin Ratio Procalcitonin 0.17 H Urine RBC Hyaline Casts Urine Mucus 06/18/21 06/18/21 06/18/21 18:06 16:07 15:12 RBC Hgb 13.6 L MCHC RDW 16.9 H MPV 12.2 H Seg Neutrophils % 85 H Lymphocytes % 8 L RBC Morphology Hypochromasia Anisocytosis Carbon Dioxide BUN Calcium Total Bilirubin Direct Bilirubin Alkaline Phosphatase C-Reactive Protein 10.40 H NT-Pro-B Natriuret Pep Total Protein Albumin Albumin/Globulin Ratio Procalcitonin Urine RBC 43 H Hyaline Casts 23 H Urine Mucus Few A 06/18/21 06/18/21 15:11 15:11 RBC Hgb MCHC RDW MPV Seg Neutrophils % Lymphocytes % RBC Morphology Hypochromasia Anisocytosis Carbon Dioxide 21 L BUN 32 H Calcium Total Bilirubin 1.4 H Direct Bilirubin Alkaline Phosphatase 141 H C-Reactive Protein NT-Pro-B Natriuret Pep 38689.0 H Total Protein Albumin 2.8 L Albumin/Globulin Ratio 0.9 L Procalcitonin 0.19 H Urine RBC Hyaline Casts Urine Mucus Meds: Medications Hydrocodone Bitart/Acetaminophen (Hydrocodone/Apap 5/325mg Tablet) 1 tab PO Q6HP PRN PRN Reason: Pain Last Admin: 06/19/21 23:56 Dose: 1 tab Documented by: Albuterol/Ipratropium (Ipratropium/Albuterol 3 Ml Ampul.Neb) 3 ml NEB Q4HP PRN PRN Reason: Shortness Of Breath Amiodarone HCl (Amiodarone Hcl 200 Mg Tablet) 100 mg PO DAILY [facility] Last Admin: 06/19/21 09:02 Dose: 100 mg Documented by: Apixaban (Apixaban 5 Mg Tablet) 5 mg PO BID [facility] Last Admin: 06/19/21 21:52 Dose: 5 mg Documented by: Docusate Sodium (Docusate Sodium 100 Mg Capsule) 100 mg PO BID [facility] Last Admin: 06/19/21 21:52 Dose: 100 mg Documented by: Gabapentin (Gabapentin 100 Mg Capsule) 200 mg PO QID [facility] Last Admin: 06/19/21 21:52 Dose: 200 mg Documented by: Potassium Chloride 40 meq/ (Dextrose) 520 mls @ 130 mls/hr IV UD PRN PRN Reason: Potassium < 3 Magnesium Sulfate (Magnesium Sulfate) 2 gm in 50 mls @ 50 mls/hr IV UD PRN PRN Reason: Magnesium </= 1.6 Ceftriaxone Sodium 2 gm/ (Dextrose) 50 mls @ 100 mls/hr IV Q24H [facility]; Protocol Last Infusion: 06/19/21 12:50 Dose: Infused Documented by: Metoprolol Succinate (Metoprolol Succinate 25 Mg Tab.Xl.24h) 12.5 mg PO QDAY [facility] Last Admin: 06/19/21 09:02 Dose: 12.5 mg Documented by: Ondansetron HCl (Ondansetron 4 Mg/2 Ml Vial) 4 mg IV Q4HP PRN PRN Reason: Nausea And Vomiting Colchicine 0.6 Mg (Tablet) 0.5 dose PO QDAY [facility] Last Admin: 06/19/21 10:38 Dose: Not Given Documented by: Polyethylene Glycol (Polyethylene Glycol 3350 17 Gm Packet) 17 gm PO DAILYP PRN PRN Reason: Constipation Potassium Chloride (Potassium Chloride 20 Meq Tablet) 40 meq PO UD PRN PRN Reason: Potssium is 3-3.5 Potassium Chloride (Potassium Chloride 20 Meq Tablet) 40 meq PO UD PRN PRN Reason: Potassium < 3 Senna (Sennosides 1 Tablet) 2 tab PO DAILYP PRN PRN Reason: Constipation Sodium Chloride (0.9 % Sodium Chloride 10 Ml Syringe) 10 ml IV Q8 [facility] Last Admin: 06/20/21 06:05 Dose: 10 ml Documented by: A/P Narrative A/P Narrative: A: *Acute on chronic systolic(10-15%)/diastolic(III) CHF w/Right Heart Failure, Mod Pulm HTN, & Valvular dz (mod MR/TR): -does have AICD, follows with [facility] -on BB/ACEI/torsemide -good UOP *Suspected Aspiration PNA, b/l: -CXR with significant left consolidation and right side infiltrate worsened *b/l MOderate effusions: *acute hypoxic resp faiure: 2/2 above *Generalized weakness/deconditioning/Poor functional status: Patient has been declining over the past months especially past weeks *Severe protein calorie malnutrition: muscle and subcutaneous fat loss, diminished functional status, hypoalbuminemia, weight loss *MCI 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: *Afib w/pacer: on Amio/BB/Eliquis *h/o CVA: No residual deficits -pt stopped taking statin on own per pcp notes 07/26/2019, was on 40mg lipitor *CKD II: *possible sleep apnea: f/u with pulmonology *Long-term prognosis guarded P: -IV lasix now prn -echo -thora for diagnostic/therapeutic -ST eval and Dyphagia diet -abx for aspiration PNA -hold ACEI for low BP, start low-dose BB -cont Amio -IS/Acapella/RT/prn nebs -monitor i/os', weights -PT/OT -comp wraps and elevate legs -Dietary consult/supplements -poor long-term prognosis given severe biventricular heart failure -CM for likely SNF -ppx: Home Eliquis DNR Time Spent With Patient Time: Total time spent is greater than 50% in coordination of care (as documented) at patient's floor/unit and/or counseling patient: Total time spent with greater than 50% in coordination of care (as documented) at patient's floor/unit and/or counseling patient:: 35 - 50 minutes QUALITY Stroke Symptom Onset Unknown: No VTE Deep Vein Thrombosis/Pulmonary Embolism Present on Admission: No
[2021-06-20] MEDS: AMIODARONE HCL 200 MG TABLET PO SCH (08:07)
[2021-06-20] MEDS: DOCUSATE SODIUM 100 MG CAPSULE PO SCH ×2 (08:08→20:05)
[2021-06-20] MEDS: GABAPENTIN 100 MG CAPSULE PO SCH ×4 (08:08→20:05)
[2021-06-20] MEDS: APIXABAN 5 MG TABLET PO SCH ×2 (08:08→20:06)
--- NOTE | 2021-06-20 09:29 | Cat Scan Report ---
History: Short of breath, follow-up pulmonary infiltrates TECHNIQUE: The chest was imaged without contrast in axial plane from the thoracic inlet through the diaphragms. Sagittal, coronal and axial MIPS images were created. The radiation exposure was limited using dose reduction technology. FINDINGS: There is a large densely consolidating infiltrate throughout the left lung with multiple air bronchograms. There is relative sparing of the apex and anterior segment of the left upper lobe and superior segment of the lingula. There is a moderate-sized groundglass alveolar infiltrate in the right upper lobe. Right middle lobe is clear. There is compressive atelectasis in the posterior basal segment of the right lower lobe. The right lower lobe is otherwise clear. Moderate-sized bilateral layering pleural effusions are present. The heart is moderately enlarged. Patient has a dual-chamber pacemaker. The power pack is in the left pectoral region. Small amount calcified plaque is present in the coronary arteries. The aorta is normal in caliber. No abnormally enlarged lymph nodes are detected. There are multiple small calcified stones layering posteriorly in the neck of the gallbladder. Comparison with the recent chest x-ray done on 06/19/21 shows relatively little change. IMPRESSION: Severe consolidating infiltrate in the left lung which may be a combination of pneumonia and atelectasis. Moderate size groundglass alveolar infiltrate in the right upper lobe Moderate size bilateral pleural effusions Cardiomegaly. Cholelithiasis Interpreted and Authenticated by: Alexis Rivero 06/20/21
[2021-06-20] MEDS: HYDROcodone/APAP 5/325MG TABLET PO PRN ×2 (09:42→17:16)
[2021-06-20] MEDS: cefTRIAXone 2 GM in DEXTROSE 5% IN WATER 50 ML IV SCH (10:14)
[2021-06-20] MEDS ORDERED: ALBUMIN HUMAN 12.5 GM/50 ML BAG IV ONE (10:34)
[2021-06-20] MEDS: FUROSEMIDE 40 MG/4 ML VIAL IV ONE ×2 (11:13→11:47)
[2021-06-20] MEDS: METOPROLOL SUCCINATE 25 MG TAB.XL.24H PO SCH (11:17)
[2021-06-20 11:23] LABS: INR 2.5 (0.9-1.1); Prothrombin Time 28.1 sec (11.9-14.5)
--- NOTE | 2021-06-20 11:56 | Discharge Summary ---
Discharge Provider Provider Patient information: Note initiated : 06/20/21 at 11:53 am Service Date, if different from initiated Date: [] Patient: Luke Scott 75 y/o M admitted on 06/18/21 for Weakness. Chief Complaint: [] Date of admission: 06/18/21 18:55 Discharge date: 06/23/21 Primary care physician: Pop Peña MD Consults: 06/18/21 Consult to Physician [CONS] Stat Comment: Consulting Provider: Chilango Canchola Reason For Exam: Physician to Consult Discharge Meds Discharge Medications Home Medications apixaban 5 mg tablet (Eliquis) 5 mg PO BID #180 tab 01/08/20 [Rx Confirmed 06/18/21 Last Taken Unknown] metoprolol succinate 25 mg tablet,extended release 24 hr (Toprol XL) 12.5 mg PO QDAY #30 tab 03/22/20 [Rx Confirmed 06/18/21 Last Taken Unknown] colchicine 0.6 mg tablet 0.3 mg PO QDAY #30 tab 08/31/20 [Rx Confirmed 06/18/21 Last Taken Unknown] amiodarone 200 mg tablet 100 mg PO DAILY tab 02/03/21 [History Confirmed 06/18/21 Last Taken Unknown] gabapentin 100 mg capsule 200 mg PO QID #240 cap 02/15/21 [Rx Confirmed 06/18/21 Last Taken Unknown] ipratropium 0.5 mg-albuterol 3 mg (2.5 mg base)/3 mL nebulization soln 3 ml INHALATION Q6H PRN #90 ml 03/08/21 [Rx Confirmed 06/18/21 Last Taken Unknown] torsemide 10 mg tablet 10 mg PO QDAY #30 tab 03/24/21 [Rx Confirmed 06/18/21 Last Taken Unknown] Wheelchair #1 ea 05/19/21 [Rx Confirmed 06/19/21 Last Taken Unknown] lisinopril 2.5 mg tablet 2.5 mg PO QDAY 06/18/21 [History Confirmed 06/18/21 Last Taken Unknown] ondansetron 4 mg disintegrating tablet See Rx Instructions .ROUTE .COMPLEX PRN 06/18/21 [History Confirmed 06/18/21 Last Taken Unknown] cefdinir 300 mg capsule 300 mg PO BID #5 cap 06/20/21 [Rx Last Taken Unknown] hydrocodone 5 mg-acetaminophen 325 mg tablet 1 tab PO Q6H PRN #10 tab 06/23/21 [Rx Last Taken Unknown] COURSE Hospital Course Hospital course: History of present illness: Mr. Scott is a 75 year old M Presents to the ED with increasing generalized weakness and malaise. He has had poor appetite and has had weight loss over the past months sounds to be about 30 pounds. But especially over the past weeks. He was put on torsemide for peripheral edema which improved it but because of the poor oral intake and concern for dehydration recently the torsemide was stopped. His edema has subsequently significantly worsened. Patient has been using primarily wheelchair over the past month prior to that he was primarily walker. He recently got out of a fdc facility to home with home health care. He is developed a cough since Monday but family member states he is unable to cough up sputum although sounds like he has sputum to cough up. Patient denies fevers chest pain shortness of breath. Urinalysis is pending. Procalcitonin not significantly elevated. Concern in the ED was for acute exacerbation of CHF versus pneumonia. Chest x- ray read is more of a pneumonia. But increasing peripheral edema noted with elevated BNP. This patient was seen over a year ago by myself for pneumonia with sepsis and then at that time I felt his long-term prognosis was quite guarded. 06/19 Patient sitting up in chair. Lower extremity edema improved with compression wraps and Lasix. Patient has occasional cough but denies shortness of breath above baseline.Suspected aspiration per observation by nursing. ST eval and dysphagia diet. Consolidating infiltrate remains on the left. Right infiltrate worsened. Will start antibiotics for aspiration pneumonia. 06/[address] with moderate bilateral effusions. As well as severe consolidating infiltrate left lung suspected to be combination of atelectasis and pneumonia and a moderate groundglass infiltrate in right upper lobe. Patient likely benefit from thoracentesis given his hypoxia and effusions. Has occasional cough. Complains of chronic back pain. 06/21 Patient feeling better today. Reduced oxygen requirement after thoracentesis. If unable to maintain on room air and likely order thoracentesis of the left side pleural effusion. Has occasional cough. 06/22 Patient had a thoracentesis done yesterday the left side of another 1200 cc fluid. Patient feels like his breathing much better and is been able to remain off oxygen. Has occasional cough still. Still very weak. Blood pressure is low normal and will adjust blood pressure medications depending. Discussed with family member at bedside and patient would be beneficial to initiate an introductory meeting with hospice team. 06/23 Patient seems to be doing well. No overnight event or new complaints. Awaiting placement. Given age and significant comorbidity including severe structural heart disease patient high risk for readmission A: *Acute on chronic systolic(10-15%)/diastolic(III) CHFw/Right Heart Failure, Mod Pulm HTN, & Valvular dz (mod MR/TR): -does have AICD, follows with [facility] cardiology -on BB/ACEI/torsemide *Suspected Aspiration PNA, b/l: *b/l MOderate effusions: -Thora (06/20) right side of 1200cc Transudative fluid -Thora (06/21) left side of 1200cc *acute hypoxic resp faiure: 2/2 above *Hypotension: 2/2 significant cardiac output compromise *Generalized weakness/deconditioning/Poor functional status: Patient has been declining over the past months especially past weeks *Severe protein calorie malnutrition: muscle and subcutaneous fat loss, diminished functional status, hypoalbuminemia, weight loss *MCI 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 fib with pacer history of stroke chronic kidney disease Time Spent with Patient Time attestation: Total time spent providing and/or coordinating discharge services: Time spent: Greater than 30 minutes EXAM Constitutional Vitals: Temp Pulse Resp BP Pulse Ox 97.6 F 73 20 90/56 94 06/20/21 04:45 06/20/21 08:05 06/20/21 08:05 06/20/21 10:09 06/20/21 10:09 Discharge Data Data Completed and Pending Labs on day of discharge: Labs from last 24 hours 06/20/21 06/20/21 10:44 06:08 PT 28.1 H INR 2.5 H Sodium 137 Potassium 3.7 Chloride 103 Carbon Dioxide 22 Anion Gap 12.0 BUN 26 H Creatinine 0.9 GFR Calculation 83 Glucose 89 Uric Acid 6.8 Calcium 8.4 L Phosphorus 3.7 Magnesium 2.1 Total Bilirubin 1.0 Direct Bilirubin 0.6 H GGT 35 AST 9 ALT < 5 Alkaline Phosphatase 103 Lactate Dehydrogenase 179 Total Protein 5.0 L Albumin 2.4 L Globulin 2.6 Albumin/Globulin Ratio 0.9 L Triglycerides 79 Preliminary micro results at discharge 06/18/21 16:37 Blood Culture - Preliminary Blood 06/18/21 16:23 Blood Culture - Preliminary Blood Discharge Plan Patient/Caregiver Discharge Instructions Activity: increase activity as tolerated Diet: Dysphagia Level 5 Minced & Moist Foods and Thickened Liquids Activity Restrictions/Additional Instructions: Follow-up in 3 to 7 days with your [facility]. Prescriptions: New cefdinir 300 mg capsule 300 mg PO BID Qty: 5 0RF Continued Eliquis 5 mg tablet 5 mg PO BID Qty: 180 3RF colchicine 0.6 mg tablet 0.3 mg PO QDAY Qty: 30 12RF Rx Instructions: Take at HS gabapentin 100 mg capsule 200 mg PO QID Qty: 240 6RF ipratropium-albuterol 0.5 mg-3 mg(2.5 mg base)/3 mL solution for nebulization 3 ml inhalation Q6H PRN (Reason: shortness of breath or wheezing) Qty: 90 12RF torsemide 10 mg tablet 10 mg PO QDAY Qty: 30 6RF (DME) Wheelchair See Rx Instructions .Route .MEDSUPPLY Qty: 1 0RF Rx Instructions: As directed amiodarone 200 mg tablet 100 mg PO DAILY 0RF metoprolol succinate [Toprol XL] 25 mg tablet extended release 24 hr 12.5 mg PO QDAY Qty: 30 0RF lisinopril 2.5 mg Tablet 2.5 mg PO QDAY 0RF ondansetron 4 mg tablet,disintegrating See Rx Instructions .ROUTE .COMPLEX PRN (Reason: Nausea) 0RF Rx Instructions: DISSOLVE 1 TABLET IN MOUTH EVERY 6 TO 8 HOURS NEEDED FOR NAUSEA AND VOMITING hydrocodone-acetaminophen 5-325 mg tablet 1 tab PO Q6H PRN (Reason: Pain) Qty: 10 0RF Follow Up Plan Follow up with: Pop Peña MD [Primary Care Provider] - Patient Disposition: Xfer SNF Prognosis: Undetermined Rehab Potential: Fair I certify that the patient requires SNF services: Yes Overall status at discharge: patient is progressing back to baseline Discharge Orders: Discharge Order (Routine); Ordered 06/23/21 [facility] Thrombosis/Pulmonary Embolism Present on Admission: No
--- NOTE | 2021-06-20 14:58 | Ultrasound Report ---
CLINICAL INFORMATION: Heart failure, short of breath, moderate size bilateral pleural effusions TECHNIQUE: The procedure and risks were explained and the patient consented after timeout for patient identification. There are moderate size bilateral pleural effusions. The right-sided pleural effusion was localized. The skin over the right side of the back was prepped with ChloraPrep then anesthetized with 1% lidocaine. Using ultrasound guidance a multiside hole drainage catheter was inserted. 1.2 L of clear yellow fluid was removed. Some of the fluid was sent to the laboratory for analysis. Nearly all the fluid was strained. He tolerated the procedure well without complication. IMPRESSION: successful right-sided thoracentesis removing 1.2 L of fluid Interpreted and Authenticated by: Alexis Rivero 06/20/21
--- NOTE | 2021-06-20 15:01 | XRay Report ---
HISTORY: Post right-sided thoracentesis FINDINGS: There is no pneumothorax following the preceding right-sided thoracentesis. Nearly all of the pleural fluid has been drained. Right lung has reexpanded. There is no pneumothorax. There is a stable alveolar infiltrate in the right upper lobe. Testicle consolidating infiltrate is again seen in the left lung with a superimposed pleural effusion. This is unchanged. IMPRESSION: No complication following right-sided thoracentesis Interpreted and Authenticated by: Alexis Rivero 06/20/21
[2021-06-20 16:06] LABS: Total Protein,Body Fluid 1.3 gm/dL
[2021-06-20 16:12] LABS: Appearance,Pleural Fluid Clear; Color,Pleural Fluid Yellow; LDH,Pleural Fluid 68 U/L (<122); Lymphocytes,Pleural Fluid 5 %; Mesothelial,Pleural Fluid 18 %; Monocytes,Pleural Fluid 22 %; Neutrophils,Pleural Fluid 55 %; Nucleated Cells,Pleural Fld 101 /cumm; RBC,Pleural Fluid <50,000 /cumm; pH,Body Fluid 7.77
[2021-06-20] MEDS: MELATONIN 3 MG TABLET PO SCH (20:06)
[2021-06-21] MEDS: HYDROcodone/APAP 5/325MG TABLET PO PRN ×3 (01:59→22:18)
[2021-06-21] MEDS: 0.9 % SODIUM CHLORIDE 10 ML SYRINGE IV SCH ×3 (04:13→22:21)
[2021-06-21 07:43] LABS: Blood Urea Nitrogen 31 mg/dL (8-23); Calcium 8.3 mg/dL (8.6-10.4); Carbon Dioxide 25 mmol/L (22-30); Chloride 104 mmol/L (96-108); Glomerular Filtration Rate 83; Glucose 71 mg/dL (70-105)
--- NOTE | 2021-06-21 08:20 | Internal Med Progress Note ---
SUBJECTIVE Subjective Patient information: Note initiated : 06/21/21 at 8:18 am Service Date, if different from initiated Date: [] Patient: Luke Scott a 75 y/o M admitted on 06/18/21 for Weakness. Chief Complaint: [] Interval history: History of present illness: Mr. Scott is a 75 year old M Presents to the ED with increasing generalized weakness and malaise. He has had poor appetite and has had weight loss over the past months sounds to be about 30 pounds. But especially over the past weeks. He was put on torsemide for peripheral edema which improved it but because of the poor oral intake and concern for dehydration recently the torsemide was stopped. His edema has subsequently significantly worsened. Patient has been using primarily wheelchair over the past month prior to that he was primarily walker. He recently got out of a long term facility to home with home health care. He is developed a cough since Monday but family member states he is unable to cough up sputum although sounds like he has sputum to cough up. Patient denies fevers chest pain shortness of breath. Urinalysis is pending. Procalcitonin not significantly elevated. Concern in the ED was for acute exacerbation of CHF versus pneumonia. Chest x- ray read is more of a pneumonia. But increasing peripheral edema noted with elevated BNP. This patient was seen over a year ago by myself for pneumonia with sepsis and then at that time I felt his long-term prognosis was quite guarded. 06/19 Patient sitting up in chair. Lower extremity edema improved with compression wraps and Lasix. Patient has occasional cough but denies shortness of breath above baseline.Suspected aspiration per observation by nursing. ST eval and dysphagia diet. Consolidating infiltrate remains on the left. Right infiltrate worsened. Will start antibiotics for aspiration pneumonia. 06/[address] Interm[address] oxygen requirement. CT with moderate bilateral effusions. As well as severe consolidating infiltrate left lung suspected to be combination of atelectasis and pneumonia and a moderate groundglass infiltrate in right upper lobe. Patient likely benefit from thoracentesis given his hypoxia and effusions. Has occasional cough. Complains of chronic back pain. 06/21 Patient feeling better today. Reduced oxygen requirement after thoracentesis. If unable to maintain on room air and likely order thoracentesis of the left side pleural effusion. Has occasional cough. Review of Systems: denies headache/fever/chills/nausea/vomiting/chest or abdominal pain/diarrhea. Otherwise see above. Constitutional Vitals: Vital Signs Temp Pulse Resp BP Pulse Ox 97.8 F 75 20 105/68 92 06/21/21 07:44 06/21/21 07:44 06/21/21 07:44 06/21/21 07:44 06/21/21 07:44 Period Temp Pulse Resp BP Sys/Barker Pulse Ox Last 24 Hr 97.4 F-98.4 F 73-80 16-20 79-105/51-76 90-95 Intake and Output 06/20/21 06/21/21 06/21/21 21:59 05:59 13:59 Intake Total 240 60 Output Total 550 150 Balance -310 -90 Weight 67.585 kg Intake & Output: Intake & Output 06/20/21 06/21/21 06/21/21 21:59 05:59 13:59 Intake Total 240 60 Output Total 550 150 Balance -310 -90 Weight 67.585 kg Intake: Oral 240 60 Output: Void Amount 550 150 Other: Meal Dinner Percent of Meal Consumed 50% Urine Appearance Clear Clear Urine Color Dark Yellow Dark Yellow Urine Odor Normal Normal # Voids 1 Exam: General: Alert, Awake, No acute Distress Eyes/N/T: EOMI, Head/Neck: neck supple, CV: RRR-paced, No murmurs, Pulm: Rhonchi significantly improved right side, still left side rhonchi. No wheezing. Abd: soft, nontender, +BS x4 Ext: no clubbing/cyanosis, 1-2+ b/l LE edema Neuro: Alert, no focal deficits, moves all extremities, Skin: warm/dry OBJ DATA Labs CBC & Chem 7: 06/19/21 05:52 06/21/21 05:19 Labs: Abnormal Lab Results 06/21/21 06/20/21 06/20/21 05:19 10:44 06:08 RBC Hgb MCHC RDW MPV Seg Neutrophils % Lymphocytes % RBC Morphology Hypochromasia Anisocytosis PT 28.1 H INR 2.5 H Carbon Dioxide BUN 31 H 26 H Calcium 8.3 L 8.4 L Total Bilirubin Direct Bilirubin 0.6 H Alkaline Phosphatase C-Reactive Protein NT-Pro-B Natriuret Pep Total Protein 5.0 L Albumin 2.4 L Albumin/Globulin Ratio 0.9 L Procalcitonin Urine RBC Hyaline Casts Urine Mucus 06/19/21 06/19/21 06/19/21 05:52 05:52 05:52 RBC 4.36 L Hgb 12.3 L MCHC 30.6 L RDW 16.8 H MPV 12.0 H Seg Neutrophils % 89 H Lymphocytes % 3 L RBC Morphology Abnormal A Hypochromasia 1+ A Anisocytosis 1+ A PT INR Carbon Dioxide 21 L BUN 31 H Calcium 8.4 L Total Bilirubin 1.4 H Direct Bilirubin 0.8 H Alkaline Phosphatase C-Reactive Protein 10.30 H NT-Pro-B Natriuret Pep Total Protein 5.3 L Albumin 2.6 L Albumin/Globulin Ratio Procalcitonin 0.17 H Urine RBC Hyaline Casts Urine Mucus 06/18/21 06/18/21 06/18/21 18:06 16:07 15:12 RBC Hgb 13.6 L MCHC RDW 16.9 H MPV 12.2 H Seg Neutrophils % 85 H Lymphocytes % 8 L RBC Morphology Hypochromasia Anisocytosis PT INR Carbon Dioxide BUN Calcium Total Bilirubin Direct Bilirubin Alkaline Phosphatase C-Reactive Protein 10.40 H NT-Pro-B Natriuret Pep Total Protein Albumin Albumin/Globulin Ratio Procalcitonin Urine RBC 43 H Hyaline Casts 23 H Urine Mucus Few A 06/18/21 06/18/21 15:11 15:11 RBC Hgb MCHC RDW MPV Seg Neutrophils % Lymphocytes % RBC Morphology Hypochromasia Anisocytosis PT INR Carbon Dioxide 21 L BUN 32 H Calcium Total Bilirubin 1.4 H Direct Bilirubin Alkaline Phosphatase 141 H C-Reactive Protein NT-Pro-B Natriuret Pep 26725.0 H Total Protein Albumin 2.8 L Albumin/Globulin Ratio 0.9 L Procalcitonin 0.19 H Urine RBC Hyaline Casts Urine Mucus Meds: Medications Hydrocodone Bitart/Acetaminophen (Hydrocodone/Apap 5/325mg Tablet) 1 tab PO Q6HP PRN PRN Reason: Pain Last Admin: 06/21/21 01:59 Dose: 1 tab Documented by: Albuterol/Ipratropium (Ipratropium/Albuterol 3 Ml Ampul.Neb) 3 ml NEB Q4HP PRN PRN Reason: Shortness Of Breath Amiodarone HCl (Amiodarone Hcl 200 Mg Tablet) 100 mg PO DAILY REGGIE Last Admin: 06/20/21 08:07 Dose: 100 mg Documented by: Apixaban (Apixaban 5 Mg Tablet) 5 mg PO BID [facility] Last Admin: 06/20/21 20:06 Dose: 5 mg Documented by: Docusate Sodium (Docusate Sodium 100 Mg Capsule) 100 mg PO BID [facility] Last Admin: 06/20/21 20:05 Dose: 100 mg Documented by: Gabapentin (Gabapentin 100 Mg Capsule) 200 mg PO QID [facility] Last Admin: 06/20/21 20:05 Dose: 200 mg Documented by: Potassium Chloride 40 meq/ (Dextrose) 520 mls @ 130 mls/hr IV UD PRN PRN Reason: Potassium < 3 Magnesium Sulfate (Magnesium Sulfate) 2 gm in 50 mls @ 50 mls/hr IV UD PRN PRN Reason: Magnesium </= 1.6 Ceftriaxone Sodium 2 gm/ (Dextrose) 50 mls @ 100 mls/hr IV Q24H [facility]; Protocol Last Infusion: 06/20/21 10:58 Dose: Infused Documented by: Melatonin (Melatonin 3 Mg Tablet) 3 mg PO QHS [facility] Last Admin: 06/20/21 20:06 Dose: 3 mg Documented by: Metoprolol Succinate (Metoprolol Succinate 25 Mg Tab.Xl.24h) 12.5 mg PO QDAY [facility] Last Admin: 06/20/21 11:17 Dose: Not Given Documented by: Ondansetron HCl (Ondansetron 4 Mg/2 Ml Vial) 4 mg IV Q4HP PRN PRN Reason: Nausea And Vomiting Colchicine 0.6 Mg (Tablet) 0.5 dose PO Q48 [facility] Polyethylene Glycol (Polyethylene Glycol 3350 17 Gm Packet) 17 gm PO DAILYP PRN PRN Reason: Constipation Potassium Chloride (Potassium Chloride 20 Meq Tablet) 40 meq PO UD PRN PRN Reason: Potssium is 3-3.5 Potassium Chloride (Potassium Chloride 20 Meq Tablet) 40 meq PO UD PRN PRN Reason: Potassium < 3 Senna (Sennosides 1 Tablet) 2 tab PO DAILYP PRN PRN Reason: Constipation Sodium Chloride (0.9 % Sodium Chloride 10 Ml Syringe) 10 ml IV Q8 [facility] Last Admin: 06/21/21 04:13 Dose: 10 ml Documented by: A/P Narrative A/P Narrative: A: *Acute on chronic systolic(10-15%)/diastolic(III) CHF w/Right Heart Failure, Mod Pulm HTN, & Valvular dz (mod MR/TR): -does have AICD, follows with [facility] -on BB/ACEI/torsemide -good UOP *Suspected Aspiration PNA, b/l: -CXR with significant left consolidation and right side infiltrate *b/l MOderate effusions: -Thora (06/20) right side of 1200cc Transudative fluid *acute hypoxic resp faiure: 2/2 above -0.5L Nc *Hypotension: 2/2 significant cardiac output compromise *Generalized weakness/deconditioning/Poor functional status: Patient has been declining over the past months especially past weeks *Severe protein calorie malnutrition: muscle and subcutaneous fat loss, diminished functional status, hypoalbuminemia, weight loss *MCI 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: *Afib w/pacer: on Amio/BB/Eliquis *h/o CVA: No residual deficits -pt stopped taking statin on own per pcp notes 07/26/2019, was on 40mg lipitor *CKD II: *possible sleep apnea: f/u with pulmonology *Long-term prognosis guarded P: -IV lasix now prn - thora of left side /therapeutic, given likely significant compressive atelectasis and increased intrathoracic pressures impeding cardiac output and return -ST eval and Dyphagia diet -abx for aspiration PNA -hold ACEI for low BP, start low-dose BB, monitor BP -cont Amio -IS/Acapella/RT/prn nebs -monitor i/os', weights -PT/OT -comp wraps and elevate legs -Dietary consult/supplements -poor long-term prognosis given severe biventricular heart failure -CM for likely SNF -ppx: Home Eliquis DNR Time Spent With Patient Time: Total time spent is greater than 50% in coordination of care (as documented) at patient's floor/unit and/or counseling patient: Total time spent with greater than 50% in coordination of care (as documented) at patient's floor/unit and/or counseling patient:: 35 - 50 minutes QUALITY Stroke Symptom Onset Unknown: No VTE Deep Vein Thrombosis/Pulmonary Embolism Present on Admission: No
[2021-06-21] MEDS: DOCUSATE SODIUM 100 MG CAPSULE PO SCH ×2 (08:33→22:18)
[2021-06-21] MEDS: AMIODARONE HCL 200 MG TABLET PO SCH (08:33)
[2021-06-21] MEDS: GABAPENTIN 100 MG CAPSULE PO SCH ×4 (08:34→22:17)
[2021-06-21] MEDS: APIXABAN 5 MG TABLET PO SCH ×2 (08:34→22:17)
[2021-06-21] MEDS: cefTRIAXone 2 GM in DEXTROSE 5% IN WATER 50 ML IV SCH (08:34)
[2021-06-21] MEDS: METOPROLOL SUCCINATE 25 MG TAB.XL.24H PO SCH (08:35)
--- NOTE | 2021-06-21 15:24 | Ultrasound Report ---
Ultrasound-guided thoracentesis CLINICAL INFORMATION: Left pleural effusion TECHNIQUE: Procedure and risks including possibility of bleeding, infection, and pneumothorax were explained to the patient. They understood and wished to proceed. With the patient in upright position, the fluid was first sonographically localized over the posterior right 10th intercostal space at posterior axillary line. The skin overlying this region was marked, prepped and locally anesthetized with 1% lidocaine using a 25-gauge needle to the level the parietal pleura. An 18-gauge [employer], Inceh needle was then advanced under sonographic guidance into the pleural fluid and approximately 1.2 L of simple appearing transudative fluid was aspirated. Post procedure scanning shows only minimal residual fluid. Patient tolerated procedure well without apparent complication. Follow-up chest x-ray to be obtained IMPRESSION: Successful thoracentesis yielding 1.2 L of transudative appearing simple pleural fluid. No apparent complication Interpreted and Authenticated by: Rios Gotti 06/21/21
--- NOTE | 2021-06-21 15:40 | XRay Report ---
CLINICAL INFORMATION: Follow-up left thoracentesis COMPARISON: None. TECHNIQUE: PA and Lateral views FINDINGS: The heart size, mediastinum and pulmonary vessels are unremarkable. Following left thoracentesis, there is only a small residual left pleural effusion. There is no pneumothorax or other complication. Moderate patchy infiltrates in both upper and left lower lungs show slight improvement. IMPRESSION: Following left thoracentesis, only a small residual left pleural effusion. No pneumothorax or other complication Moderate patchy bilateral infiltrates showing slight improvement 06/20/2021 Interpreted and Authenticated by: Rios Gotti 06/21/21
[2021-06-21] MEDS: MELATONIN 3 MG TABLET PO SCH (22:18)
[2021-06-22] MEDS: 0.9 % SODIUM CHLORIDE 10 ML SYRINGE IV SCH ×3 (05:09→23:04)
[2021-06-22] MEDS: HYDROcodone/APAP 5/325MG TABLET PO PRN ×3 (05:13→23:00)
[2021-06-22 07:11] LABS: Blood Urea Nitrogen 28 mg/dL (8-23); Calcium 8.1 mg/dL (8.6-10.4); Carbon Dioxide 25 mmol/L (22-30); Chloride 102 mmol/L (96-108); Glomerular Filtration Rate 92; Glucose 71 mg/dL (70-105)
[2021-06-22] MEDS: AMIODARONE HCL 200 MG TABLET PO SCH (08:55)
[2021-06-22] MEDS: METOPROLOL SUCCINATE 25 MG TAB.XL.24H PO SCH (08:55)
[2021-06-22] MEDS: DOCUSATE SODIUM 100 MG CAPSULE PO SCH ×2 (08:55→23:00)
[2021-06-22] MEDS: APIXABAN 5 MG TABLET PO SCH ×2 (08:55→23:01)
[2021-06-22] MEDS: GABAPENTIN 100 MG CAPSULE PO SCH ×4 (08:55→23:00)
[2021-06-22] MEDS: cefTRIAXone 2 GM in DEXTROSE 5% IN WATER 50 ML IV SCH (08:58)
--- NOTE | 2021-06-22 13:54 | Internal Med Progress Note ---
SUBJECTIVE Subjective Patient information: Note initiated : 06/22/21 at 1:52 pm Service Date, if different from initiated Date: [] Patient: Luke Scott a 75 y/o M admitted on 06/18/21 for Weakness. Chief Complaint: [] Interval history: History of present illness: Mr. Scott is a 75 year old M Presents to the ED with increasing generalized weakness and malaise. He has had poor appetite and has had weight loss over the past months sounds to be about 30 pounds. But especially over the past weeks. He was put on torsemide for peripheral edema which improved it but because of the poor oral intake and concern for dehydration recently the torsemide was stopped. His edema has subsequently significantly worsened. Patient has been using primarily wheelchair over the past month prior to that he was primarily walker. He recently got out of a correction facility to home with home health care. He is developed a cough since Monday but family member states he is unable to cough up sputum although sounds like he has sputum to cough up. Patient denies fevers chest pain shortness of breath. Urinalysis is pending. Procalcitonin not significantly elevated. Concern in the ED was for acute exacerbation of CHF versus pneumonia. Chest x- ray read is more of a pneumonia. But increasing peripheral edema noted with elevated BNP. This patient was seen over a year ago by myself for pneumonia with sepsis and then at that time I felt his long-term prognosis was quite guarded. 06/19 Patient sitting up in chair. Lower extremity edema improved with compression wraps and Lasix. Patient has occasional cough but denies shortness of breath above baseline.Suspected aspiration per observation by nursing. ST eval and dysphagia diet. Consolidating infiltrate remains on the left. Right infiltrate worsened. Will start antibiotics for aspiration pneumonia. 06/[address] Intermitt[address] oxygen requirement. CT with moderate bilateral effusions. As well as severe consolidating infiltrate left lung suspected to be combination of atelectasis and pneumonia and a moderate groundglass infiltrate in right upper lobe. Patient likely benefit from thoracentesis given his hypoxia and effusions. Has occasional cough. Complains of chronic back pain. 06/21 Patient feeling better today. Reduced oxygen requirement after thoracentesis. If unable to maintain on room air and likely order thoracentesis of the left side pleural effusion. Has occasional cough. 06/22 Patient had a thoracentesis done yesterday the left side of another 1200 cc fluid. Patient feels like his breathing much better and is been able to remain off oxygen. Has occasional cough still. Still very weak. Blood pressure is low normal and will adjust blood pressure medications depending. Review of Systems: denies headache/fever/chills/nausea/vomiting/chest or abdominal pain/diarrhea. Otherwise see above. Constitutional Vitals: Vital Signs Temp Pulse Resp BP Pulse Ox 96.4 F L 74 18 108/74 94 06/22/21 08:00 06/22/21 08:00 06/22/21 08:00 06/22/21 08:00 06/22/21 08:00 Period Temp Pulse Resp BP Sys/Barker Pulse Ox Last 24 Hr 96.4 F-97.4 F 72-74 16-18 93-108/61-74 90-96 Intake and Output 06/21/21 06/22/21 06/22/21 21:59 05:59 13:59 Intake Total 200 120 410 Output Total 225 Balance 200 -105 410 Intake & Output: Intake & Output 06/21/21 06/22/21 06/22/21 21:59 05:59 13:59 Intake Total 200 120 410 Output Total 225 Balance 200 -105 410 Intake: Nourishment/Supplement quantity 200 (ml) IV 50 Rocephin 2 gm In Dextrose 5% in 50 Water 50 ml @ 100 mls/hr IV Q24H [facility] Rx#:[id number] Oral 120 360 Output: Void Amount 225 Other: Meal Dinner Breakfast Percent of Meal Consumed 25% 100% Nourishment/Supplement name Ensure Urine Appearance Clear Urine Color Dark Yellow Urine Odor Normal # Voids 1 Exam: General: Alert, Awake, No acute Distress, cachectic Eyes/N/T: EOMI, Head/Neck: neck supple, CV: RRR-paced, No murmurs, Pulm: Mild rhonchi b/l, better aeration, No wheezing. Abd: soft, nontender, +BS x4 Ext: no clubbing/cyanosis, mild+ b/l LE edema Neuro: Alert, no focal deficits, moves all extremities, Skin: warm/dry OBJ DATA Labs CBC & Chem 7: 06/19/21 05:52 06/22/21 05:48 Labs: Abnormal Lab Results 06/22/21 06/21/21 06/20/21 05:48 05:19 10:44 PT 28.1 H INR 2.5 H BUN 28 H 31 H Calcium 8.1 L 8.3 L Direct Bilirubin Total Protein Albumin Albumin/Globulin Ratio 06/20/21 06:08 PT INR BUN 26 H Calcium 8.4 L Direct Bilirubin 0.6 H Total Protein 5.0 L Albumin 2.4 L Albumin/Globulin Ratio 0.9 L Meds: Medications Hydrocodone Bitart/Acetaminophen (Hydrocodone/Apap 5/325mg Tablet) 1 tab PO Q6HP PRN PRN Reason: Pain Last Admin: 06/22/21 12:52 Dose: 1 tab Documented by: Albuterol/Ipratropium (Ipratropium/Albuterol 3 Ml Ampul.Neb) 3 ml NEB Q4HP PRN PRN Reason: Shortness Of Breath Amiodarone HCl (Amiodarone Hcl 200 Mg Tablet) 100 mg PO DAILY [facility] Last Admin: 06/22/21 08:55 Dose: 100 mg Documented by: Apixaban (Apixaban 5 Mg Tablet) 5 mg PO BID [facility] Last Admin: 06/22/21 08:55 Dose: 5 mg Documented by: Docusate Sodium (Docusate Sodium 100 Mg Capsule) 100 mg PO BID [facility] Last Admin: 06/22/21 08:55 Dose: 100 mg Documented by: Gabapentin (Gabapentin 100 Mg Capsule) 200 mg PO QID [facility] Last Admin: 06/22/21 12:52 Dose: 200 mg Documented by: Potassium Chloride 40 meq/ (Dextrose) 520 mls @ 130 mls/hr IV UD PRN PRN Reason: Potassium < 3 Magnesium Sulfate (Magnesium Sulfate) 2 gm in 50 mls @ 50 mls/hr IV UD PRN PRN Reason: Magnesium </= 1.6 Ceftriaxone Sodium 2 gm/ (Dextrose) 50 mls @ 100 mls/hr IV Q24H [facility]; Protocol Last Infusion: 06/22/21 09:49 Dose: Infused Documented by: Melatonin (Melatonin 3 Mg Tablet) 3 mg PO QHS [facility] Last Admin: 06/21/21 22:18 Dose: 3 mg Documented by: Metoprolol Succinate (Metoprolol Succinate 25 Mg Tab.Xl.24h) 12.5 mg PO QDAY [facility] Last Admin: 06/22/21 08:55 Dose: 12.5 mg Documented by: Ondansetron HCl (Ondansetron 4 Mg/2 Ml Vial) 4 mg IV Q4HP PRN PRN Reason: Nausea And Vomiting Colchicine 0.6 Mg (Tablet) 0.5 dose PO Q48 [facility] Last Admin: 06/21/21 08:34 Dose: Not Given Documented by: Polyethylene Glycol (Polyethylene Glycol 3350 17 Gm Packet) 17 gm PO DAILYP PRN PRN Reason: Constipation Potassium Chloride (Potassium Chloride 20 Meq Tablet) 40 meq PO UD PRN PRN Reason: Potssium is 3-3.5 Potassium Chloride (Potassium Chloride 20 Meq Tablet) 40 meq PO UD PRN PRN Reason: Potassium < 3 Senna (Sennosides 1 Tablet) 2 tab PO DAILYP PRN PRN Reason: Constipation Sodium Chloride (0.9 % Sodium Chloride 10 Ml Syringe) 10 ml IV Q8 [facility] Last Admin: 06/22/21 12:53 Dose: 10 ml Documented by: A/P Narrative A/P Narrative: A: *Acute on chronic systolic(10-15%)/diastolic(III) CHF w/Right Heart Failure, Mod Pulm HTN, & Valvular dz (mod MR/TR): -does have AICD, follows with [facility] -on BB/ACEI/torsemide -good UOP *Suspected Aspiration PNA, b/l: -CXR with significant left consolidation and right side infiltrate *b/l MOderate effusions: -Thora (06/20) right side of 1200cc Transudative fluid -Thora (06/21) left side of 1200cc *acute hypoxic resp faiure: 2/2 above -now on RA *Hypotension: 2/2 significant cardiac output compromise *Generalized weakness/deconditioning/Poor functional status: Patient has been declining over the past months especially past weeks *Severe protein calorie malnutrition: muscle and subcutaneous fat loss, diminished functional status, hypoalbuminemia, weight loss *MCI 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: *Afib w/pacer: on Amio/BB/Eliquis *h/o CVA: No residual deficits -pt stopped taking statin on own per pcp notes 07/26/2019, was on 40mg lipitor *CKD II: *possible sleep apnea: f/u with pulmonology *Long-term prognosis guarded P: -transition to home torsemide -ST eval and Dyphagia diet -abx for aspiration PNA -hold ACEI for low BP, low-dose BB, monitor BP -cont Amio -IS/Acapella/RT/prn nebs -monitor i/os', weights -PT/OT -comp wraps and elevate legs -Dietary consult/supplements -poor long-term prognosis given severe biventricular heart failure -CM for likely SNF -ppx: Home Eliquis DNR Time Spent With Patient Time: Total time spent is greater than 50% in coordination of care (as documented) at patient's floor/unit and/or counseling patient: Total time spent with greater than 50% in coordination of care (as documented) at patient's floor/unit and/or counseling patient:: 25 - 35 minutes QUALITY Stroke Symptom Onset Unknown: No VTE Deep Vein Thrombosis/Pulmonary Embolism Present on Admission: No
[2021-06-22] MEDS ORDERED: TORSEMIDE 10 MG TABLET PO ONE (14:26)
[2021-06-22] MEDS: MELATONIN 3 MG TABLET PO SCH (23:00)
[2021-06-23] MEDS: HYDROcodone/APAP 5/325MG TABLET PO PRN ×3 (04:47→19:28)
[2021-06-23] MEDS: 0.9 % SODIUM CHLORIDE 10 ML SYRINGE IV SCH ×3 (04:47→22:11)
[2021-06-23] MEDS ORDERED: TORSEMIDE 10 MG TABLET PO SCH (09:00)
[2021-06-23] MEDS: cefTRIAXone 2 GM in DEXTROSE 5% IN WATER 50 ML IV SCH (10:17)
[2021-06-23] MEDS: GABAPENTIN 100 MG CAPSULE PO SCH ×4 (12:06→22:12)
[2021-06-23] MEDS: TORSEMIDE 10 MG TABLET PO SCH (12:07)
[2021-06-23] MEDS: DOCUSATE SODIUM 100 MG CAPSULE PO SCH ×2 (12:07→22:12)
[2021-06-23] MEDS: METOPROLOL SUCCINATE 25 MG TAB.XL.24H PO SCH (12:07)
[2021-06-23] MEDS: APIXABAN 5 MG TABLET PO SCH ×2 (12:08→22:12)
[2021-06-23] MEDS: AMIODARONE HCL 200 MG TABLET PO SCH (12:09)
[2021-06-23] MEDS: MELATONIN 3 MG TABLET PO SCH (22:12)
[2021-06-24] MEDS: 0.9 % SODIUM CHLORIDE 10 ML SYRINGE IV SCH (04:06)
[2021-06-24] MEDS: HYDROcodone/APAP 5/325MG TABLET PO PRN (06:06)
[2021-06-24] MEDS: GABAPENTIN 100 MG CAPSULE PO SCH (08:39)
[2021-06-24] MEDS: METOPROLOL SUCCINATE 25 MG TAB.XL.24H PO SCH (08:40)
[2021-06-24] MEDS: TORSEMIDE 10 MG TABLET PO SCH (08:42)
[2021-06-24] MEDS: DOCUSATE SODIUM 100 MG CAPSULE PO SCH (08:42)
[2021-06-24] MEDS: AMIODARONE HCL 200 MG TABLET PO SCH (08:42)
[2021-06-24] MEDS: cefTRIAXone 2 GM in DEXTROSE 5% IN WATER 50 ML IV SCH (08:43)
[2021-06-24] MEDS: APIXABAN 5 MG TABLET PO SCH (08:43)
--- NOTE | 2021-06-24 10:32 | Discharge Summary ---
Discharge Provider Provider Patient information: Note initiated : 06/24/21 at 10:27 am Service Date, if different from initiated Date: [] Patient: Luke Scott 75 y/o M admitted on 06/18/21 for Weakness. Chief Complaint: [] Date of admission: 06/18/21 18:55 Discharge date: 06/24/21 Primary care physician: Pop Peña MD Consults: 06/18/21 Consult to Physician [CONS] Stat Comment: Consulting Provider: Chilango Canchola Reason For Exam: Physician to Consult Discharge Meds Discharge Medications Home Medications apixaban 5 mg tablet (Eliquis) 5 mg PO BID #180 tab 01/08/20 [Rx Confirmed 06/18/21 Last Taken Unknown] metoprolol succinate 25 mg tablet,extended release 24 hr (Toprol XL) 12.5 mg PO QDAY #30 tab 03/22/20 [Rx Confirmed 06/18/21 Last Taken Unknown] colchicine 0.6 mg tablet 0.3 mg PO QDAY #30 tab 08/31/20 [Rx Confirmed 06/18/21 Last Taken Unknown] amiodarone 200 mg tablet 100 mg PO DAILY tab 02/03/21 [History Confirmed 06/18/21 Last Taken Unknown] gabapentin 100 mg capsule 200 mg PO QID #240 cap 02/15/21 [Rx Confirmed 06/18/21 Last Taken Unknown] ipratropium 0.5 mg-albuterol 3 mg (2.5 mg base)/3 mL nebulization soln 3 ml INHALATION Q6H PRN #90 ml 03/08/21 [Rx Confirmed 06/18/21 Last Taken Unknown] torsemide 10 mg tablet 10 mg PO QDAY #30 tab 03/24/21 [Rx Confirmed 06/18/21 Last Taken Unknown] Wheelchair #1 ea 05/19/21 [Rx Confirmed 06/19/21 Last Taken Unknown] lisinopril 2.5 mg tablet 2.5 mg PO QDAY 06/18/21 [History Confirmed 06/18/21 Last Taken Unknown] ondansetron 4 mg disintegrating tablet See Rx Instructions .ROUTE .COMPLEX PRN 06/18/21 [History Confirmed 06/18/21 Last Taken Unknown] cefdinir 300 mg capsule 300 mg PO BID #5 cap 06/20/21 [Rx Last Taken Unknown] hydrocodone 5 mg-acetaminophen 325 mg tablet 1 tab PO Q6H PRN #10 tab 06/23/21 [Rx Last Taken Unknown] COURSE Hospital Course Hospital course: Physical examMr. Scott is a 75 year old male who presented to the ED with increasing generalized weakness and malaise. He has had poor appetite and has had weight loss over the past months sounds to be about 30 pounds. But especially over the past weeks. He was put on torsemide for peripheral edema which improved it but because of the poor oral intake and concern for dehydration recently the torsemide was stopped. His edema has subsequently significantly worsened. Patient has been using primarily wheelchair over the past month prior to that he was primarily walker. He recently got out of a senior care facility to home with home health care. He is developed a cough since Monday but family member states he is unable to cough up sputum although sounds like he has sputum to cough up. Patient denies fevers chest pain shortness of breath. Urinalysis is pending. Procalcitonin not significantly elevated. Concern in the ED was for acute exacerbation of CHF versus pneumonia. Chest x- ray read is more of a pneumonia. But increasing peripheral edema noted with elevated BNP. This patient was seen over a year ago by myself for pneumonia with sepsis and then at that time I felt his long-term prognosis was quite guarded. 06/19 Patient sitting up in chair. Lower extremity edema improved with compression wraps and Lasix. Patient has occasional cough but denies shortness of breath above baseline.Suspected aspiration per observation by nursing. ST eval and dysphagia diet. Consolidating infiltrate remains on the left. Right infiltrate worsened. Will start antibiotics for aspiration pneumonia. 06/20 Intermitt[address] oxygen requirement. CT with moderate bilateral effusions. As well as severe consolidating infiltrate left lung suspected to be combination of atelectasis and pneumonia and a moderate ground glass infiltrate in right upper lobe. Patient likely benefit from thoracentesis given his hypoxia and effusions. Has occasional cough. Complains of chronic back pain. 5 Patient feeling better today. Reduced oxygen requirement after thoracentesis. If unable to maintain on room air and likely order thoracentesis of the left side pleural effusion. Has occasional cough. 06/22 Patient had a thoracentesis done yesterday the left side of another 1200 cc fluid. Patient feels like his breathing much better and is been able to remain off oxygen. Has occasional cough still. Still very weak. Blood pressure is low normal and will adjust blood pressure medications depending. Discussed with family member at bedside and patient would be beneficial to initiate an introductory meeting with hospice team. 06/23 Patient seems to be doing well. No overnight event or new complaints. Awaiting placement. 06/24 Discharged to senior care facility for rehab. The plan is for the patient to go home with hospice after rehab. Physical exam General: Chronically ill-appearing malnourished 75-year-old male in no apparent distress. Head: Atraumatic, normal inspection. Eyes: normal appearance, no scleral icterus. Neck: full ROM Respiratory: no respiratory distress. Cardiovascular: normal rate and rhythm, S1, S2. GI/Abdominal: soft, nontender, no guarding. Extremities: full range of motion, nontender. Neurological: CN II-XII intact, intact motor, intact sensation. Psychiatric: normal mood. Skin: warm, normal color Total time spent on discharge: 35 minutes. Discharge diagnosis: Acute on chronic systolic heart failure Secondary discharge diagnosis: Cor pulmonale Pulmonary hypertension Probable aspiration pneumonia Severe protein calorie malnutrition Generalized weakness Time Spent with Patient Time attestation: Total time spent providing and/or coordinating discharge services: EXAM Constitutional Vitals: Temp Pulse Resp BP Pulse Ox 96.9 F L 80 20 104/68 92 06/24/21 08:00 06/24/21 08:00 06/24/21 08:00 06/24/21 08:00 06/24/21 08:00 Discharge Plan Patient/Caregiver Discharge Instructions Activity: increase activity as tolerated Diet: Dysphagia Level 5 Minced & Moist Foods and Thickened Liquids Activity Restrictions/Additional Instructions: Follow-up with hospice outpatient Follow-up in 3 to 7 days with your speaker wirer. Dysphagia diet. Increase activity as tolerated. Call your physician for sustained fever greater than 100.5, increase/worsening shortness of breath, or any questions/concerns. This discharge packet is provided to you to help keep you informed about your care. We want to ensure you get everything you need when you go home. You will also be receiving a call from us in a few days to follow up with you and see how you are doing since your discharge. This gives us a chance to listen to any concerns you maybe experiencing since you were discharged or any additional needs you may have, as well as providing us feedback on your care experience. We strive to always provide excellent care and thank you for your feedback and for choosing [facility]. Prescriptions: New cefdinir 300 mg capsule 300 mg PO BID Qty: 5 0RF Continued Eliquis 5 mg tablet 5 mg PO BID Qty: 180 3RF colchicine 0.6 mg tablet 0.3 mg PO QDAY Qty: 30 12RF Rx Instructions: Take at HS gabapentin 100 mg capsule 200 mg PO QID Qty: 240 6RF ipratropium-albuterol 0.5 mg-3 mg(2.5 mg base)/3 mL solution for nebulization 3 ml inhalation Q6H PRN (Reason: shortness of breath or wheezing) Qty: 90 12RF torsemide 10 mg tablet 10 mg PO QDAY Qty: 30 6RF (DME) Wheelchair See Rx Instructions .Route .MEDSUPPLY Qty: 1 0RF Rx Instructions: As directed amiodarone 200 mg tablet 100 mg PO DAILY 0RF metoprolol succinate [Toprol XL] 25 mg tablet extended release 24 hr 12.5 mg PO QDAY Qty: 30 0RF lisinopril 2.5 mg Tablet 2.5 mg PO QDAY 0RF ondansetron 4 mg tablet,disintegrating See Rx Instructions .ROUTE .COMPLEX PRN (Reason: Nausea) 0RF Rx Instructions: DISSOLVE 1 TABLET IN MOUTH EVERY 6 TO 8 HOURS NEEDED FOR NAUSEA AND VOMITING hydrocodone-acetaminophen 5-325 mg tablet 1 tab PO Q6H PRN (Reason: Pain) Qty: 10 0RF Other Ambulatory Orders: Wound Care Instructions (CONT) Location: None Selected Ordered By: Emmett Almanza OT Discharge Order (Routine) Location: None Selected Ordered By: Chilango Canchola Physical Therapy at Discharge - General (Routine) Location: None Selected Ordered By: Chilango Canchola ST Discharge Order (Routine) Location: None Selected Ordered By: Chilango Canchola Follow Up Plan Follow up with: Pop Peña MD [Primary Care Provider] - (Please call and schedule a hospital follow up appointment.) Patient Disposition: Xfer SNF Prognosis: Undetermined Rehab Potential: Fair I certify that the patient requires SNF services: Yes Overall status at discharge: patient is progressing back to baseline Discharge Orders: Discharge Order (Routine); Ordered 06/23/21 Ordered By: Chilango Canchola QUALITY VTE Deep Vein Thrombosis/Pulmonary Embolism Present on Admission: No
== END 2021-06-24 10:45 | DRG 291 ==
LOC: ED 14:10 → ICU 18:55 → MEDSUR 06-20 17:36
PROVIDERS: ADMIT Internal Medicine; ATTEND Internal Medicine